=== PATIENT | female | born 1960 | race Caucasian/White ===

== ENCOUNTER 2019-08-11 09:20 | Outpatient (CLI) | payer OTHER, SELFPAY ==
--- NOTE | 2019-08-11 10:30 | NEURO_ITS ---
Patient Number: [id number] Impression: # Complains of numbness of all extremities. # Generalized neuropathy involving upper and lower extremities of motor and sensory nerves. # Needle/EMG exam revealed no significant changes. Nerve Conduction Studies Anti Sensory Summary Table Stim Site NR Peak (ms) P-T Amp (?V) Site1 Site2 Delta-P (ms) Dist (cm) Anirudh (m/s) Left Median Anti Sensory (2-3nd Digit) NO RESPONSE Wrist NR Wrist 2-3nd Digit 14.0 Wrist NR Wrist 2-3nd Digit 14.0 Right Median Anti Sensory (2-3nd Digit) NO RESPONSE Wrist NR Wrist 2-3nd Digit 14.0 Wrist 5.7 3.3 Wrist 2-3nd Digit 14.0 Left Radial Anti Sensory (Base 1st Digit) Wrist 2.0 30.4 Wrist Base 1st Digit 2.0 0.0 Right Radial Anti Sensory (Base 1st Digit) Wrist 2.4 15.7 Wrist Base 1st Digit 2.4 0.0 Left Sup Fibular Anti Sensory (Ant Lat Mall) 14 cm 4.9 4.3 14 cm Ant Lat Mall 4.9 16.0 33 Right Sup Fibular Anti Sensory (Ant Lat Mall) 14 cm 4.0 1.4 14 cm Ant Lat Mall 4.0 16.0 40 Left Sural Anti Sensory (Lat Mall) Calf 4.2 1.8 Calf Lat Mall 4.2 16.0 38 Right Sural Anti Sensory (Lat Mall) Calf 4.6 8.0 Calf Lat Mall 4.6 16.0 35 Left Ulnar Anti Sensory (5th Digit) Wrist 2.4 20.2 Wrist 5th Digit 2.4 14.0 58 Right Ulnar Anti Sensory (5th Digit) Wrist 2.2 15.7 Wrist 5th Digit 2.2 14.0 64 Motor Summary Table Stim Site NR Onset (ms) O-P Amp (mV) Site1 Site2 Delta-0 (ms) Dist (cm) Anirudh (m/s) Left Median Motor (Abd Poll Brev) Wrist 3.5 4.0 Elbow Wrist 6.0 24.0 40 Elbow 9.5 1.2 Right Median Motor (Abd Poll Brev) Wrist 4.1 1.1 Elbow Wrist 6.5 26.0 40 Elbow 10.6 1.1 Left Peroneal Motor (Vastus Med) Ankle 4.3 2.3 Popit Ankle 8.9 36.0 40 Popit 13.2 2.4 Right Peroneal Motor (Vastus Med) Ankle 4.2 2.2 Popit Ankle 8.5 33.0 39 Popit 12.7 1.4 Left Tibial Motor (Abd Phillips Brev) Ankle 4.1 0.5 Knee Ankle 11.8 40.0 34 Knee 15.9 0.3 Right Tibial Motor (Abd Phillips Brev) Ankle 4.2 1.1 Knee Ankle 10.1 39.0 39 Knee 14.3 0.6 Left Ulnar Motor (Abd Dig Minimi) Wrist 2.7 6.5 A Elbow Wrist 4.7 27.0 57 A Elbow 7.4 4.2 Right Ulnar Motor (Abd Dig Minimi) Wrist 3.0 5.0 A Elbow Wrist 5.5 26.0 47 A Elbow 8.5 2.8 F Wave Studies NR F-Lat (ms) L-R F-Lat (ms) Left Median (Mrkrs) (Abd Poll Brev) 31.58 0.18 Right Median (Mrkrs) (Abd Poll Brev) 31.75 0.18 Left Peroneal (Mrkrs) (EDB) 52.98 0.94 Right Peroneal (Mrkrs) (EDB) 53.92 0.94 Left Tibial (Mrkrs) (Abd Hallucis) 48.89 0.12 Right Tibial (Mrkrs) (Abd Hallucis) 49.01 0.12 Left Ulnar (Mrkrs) (Abd Dig Min) 30.70 1.81 Right Ulnar (Mrkrs) (Abd Dig Min) 32.51 1.81 EMG Side Muscle Nerve Root Ins Act Fibs Amp Dur Recrt Comment Right 1stDorInt Ulnar C8-T1 Nml Nml Nml Nml Nml Right Ext Indicis Radial (Post Int) C7-8 Nml Nml Nml Nml Nml Right Ext Digitorum Radial (Post Int) C7-8 Nml Nml Nml Nml Nml Right BrachioRad Radial C5-6 Nml Nml Nml Nml Nml Right PronatorTeres Median C6-7 Nml Nml Nml Nml Nml Right Abd Poll Brev Median C8-T1 Nml Nml Nml Nml Nml Right AntTibialis Dp Br Fibular L4-5 Nml Nml Nml Nml
== END 2019-08-11 09:21 | disposition home or self-care (01) ==
PROVIDERS: PCP Family Medicine; Visit Provider Family Medicine
DX: E11.42 Type 2 diabetes mellitus with diabetic polyneuropathy (principal)
CPT/HCPCS: 95886; 95913

== ENCOUNTER 2019-12-30 22:53 | Emergency (ER) | payer OTHER, SELFPAY ==
--- NOTE | ~2019-12-30 | CT_ITS ---
EXAMINATION: CT abdomen pelvis w con EXAM DATE: 12/31/2019 01:05 INDICATION: Abdominal pain with nausea and vomiting. Diabetes. TECHNIQUE: Spiral CT of the abdomen and pelvis was performed following intravenous injection of 100 m L Omnipaque 350. Axial, coronal and sagittal images were reviewed. The dose-length product (DLP) fo r this examination was 1376.42 mGy-cm. The exposure was tailored according to patient size (auto mA exposure control), and iterative reconstruction (ASIR) was used as additional dose reduction techniqu e. Comparison is made to prior examination from 11/06/2018. FINDINGS: The liver, spleen, adrenal glands and pancreas are unremarkable. Gallbladder not identifie d, patient likely has had cholecystectomy. Portal and splenic veins are patent. Kidneys enhance sym metrically. There is no hydronephrosis. Punctate nonobstructing left calyceal stone. The uterus is unremarkable. Some diffuse bladder wall thickening, could indicate chronic cystitis. Acute cystitis not excludable. There is no retroperitoneal or pelvic lymphadenopathy. There is mild to moderate scattered arteriosclerotic disease. There is moderate-sized umbilical fat-containing hernia, and bam ral smaller supraumbilical fat-containing hernias. The appendix is not positively visualized. There is no pericecal inflammatory change to suggest appe ndicitis. The stomach and small bowel are unremarkable. There is expected amount of colonic stool. No free intraperitoneal gas. The heart is normal in size. There are no pericardial or pleural e ffusions. The lung bases are unremarkable. There are no osteoblastic or osteolytic lesions identifi ed. There are sternotomy wires. IMPRESSION: 1. Mild bladder wall thickening, acute or chronic cystitis. Correlate with urinalysis. 2. Umbilical, supra umbilical fat-containing hernias. Reviewed, dictated and finalized at location A. IMPRESSION: 1. Mild bladder wall thickening, acute or chronic cystitis. Correlate with uri nalysis. 2. Umbilical, supra umbilical fat-containing hernias.
[2019-12-30 22:55] VITALS: BP 145/109; PULSE 92; RESP 20; TEMP 36.1; O2SAT 100
[2019-12-30] MEDS: SODIUM CHLORIDE 0.9% IV 1,000 ML 999 ML IV CONT (23:44)
[2019-12-30] MEDS: ONDANSETRON INJ 4 MG/2 ML VIAL IV PUSH (23:44)
[2019-12-30 23:47] LABS: Add Urine Microscopic? YES; Appearance Urine Cloudy (Clear); Bacteria Urine Trace /hpf; Bilirubin Urine Negative (Negative); Blood Urine 1+ (Negative); Color Urine Yellow (Yellow); Glucose Urine UA 3+ mg/dL (Negative); Ketones Urine Trace mg/dL (Negative); Leukocyte Esterase Ur 2+ LEU/UL (Negative); Mucus Urine Rare /lpf; Nitrate Urine Positive (Negative); Protein Urine 1+ mg/dL (Negative); Specific Grav Ur 1.021 (1.001-1.035); Squamous Epithelial Cell Urine Occasional /hpf (Few); Urobilinogen Urine Negative mg/dL (<2.0); WBC Urine 51-75 /hpf
[2019-12-30 23:56] LABS: Basophils Absolute Auto 0.1 K/mm3 (0.0-0.1); Basophils Percent Auto 0.5 % (0.2-1.2); Eosinophils Absolute Auto 0.1 K/mm3 (0-0.3); Eosinophils Percent Auto 0.6 % (0-4.4); Hematocrit 39.2 % (37.0-47.0); Hemoglobin 13.6 g/dL (12.0-15.0); Immature Granulocyte Absolute 0.09 K/mm3 (0.00-0.031); Immature Granulocyte Percent A 0.5 % (0-0.5); Lymphocytes Absolute Auto 0.74 K/mm3 (0.9-3.2); Lymphocytes Percent Auto 4.3 % (18.3-44.2); Mean Corpuscular HGB Conc 34.7 g/dl (32-36); Mean Corpuscular Volume 86.5 fl (80-100); Mean Platelet Volume 10.8 fl (7.4-10.4); Monocytes Absolute Auto 0.8 K/mm3 (0.1-0.6); Monocytes Percent Auto 4.6 % (2.6-8.5); Neutrophils Absolute Auto 15.5 K/mm3 (1.3-6.7); Neutrophils Percent Auto 89.5 % (45.5-73.1); Platelet Count Result 254 k/mm3 (150-375); Red Blood Count 4.53 M/mm3 (4.2-5.4); Red Cell Distribution Width 12.4 % (11.5-14.5); White Blood Count 17.3 K/mm3 (4.5-10.0)
[2019-12-31 00:10] LABS: Alanine Aminotransferase 24 U/L (4-35); Albumin Level 3.9 g/dL (3.5-5.1); Alkaline Phosphatase 114 U/L (38-126); Anion Gap 10 mmol/L (8-16); Aspartate Amino Transferase 31 U/L (14-36); Bilirubin,Total 0.8 mg/dL (0.2-1.3); Blood Urea Nitrogen 29 mg/dL (7-17); Calcium 9.1 mg/dL (8.4-10.2); Carbon Dioxide 25 mmol/L (22-30); Chloride 94 mmol/L (98-107); Estimated CRCL calculation 50 ml/min; Estimated Glomerular Filt Rate 46; Glucose 501 mg/dL (65-105); Lipase 115 U/L (23-300); Potassium 4.3 mmol/L (3.4-5.0); Sodium 129 mmol/L (137-145)
[2019-12-31] MEDS: SODIUM CHLORIDE 0.9% IV 1,000 ML 999 ML IV CONT (00:54)
[2019-12-31 02:03] LABS: Glucose Point of Care 430 (65-105)
[2019-12-31] MEDS: INSULIN HUMAN REGULAR (*BKC) 100 UNITS/ML 10 UNITS IV PUSH (02:28)
--- NOTE | 2019-12-31 03:02 | ED.NAVMDI ---
HPI - Nausea/Vomiting/Diarrhea General Chief complaint: Nausea/Vomiting/Diarrhea Stated complaint: n/v Time Seen by Provider: 12/30/19 23:06 History of Present Illness HPI Narrative: Patient is a 5-year-old female who presents ER with sudden onset nausea and vomiting. Began this evening. Associated diffuse abdominal discomfort. Reports that she has had no fevers or chills or sweats. She has had mild dysuria for the last couple days is also been dark. No known sick contacts. She is without diarrhea. No alleviating factors. Patient reports she has not been checking her blood sugars at home and has not been taking her insulin for the last day or so because she has not been eating much. Related Data Allergies Allergy/AdvReac Type Severity Reaction Status Date / Time No Known Allergies Allergy Unverified 12/30/18 15:39 Review of Systems Review of Systems: All systems reviewed & are unremarkable except as noted in HPI and below Constitutional: Constitutional: Denies chills, Denies fever(s) and Denies weakness Respiratory: Respiratory: Denies cough and Denies dyspnea Gastrointestinal: Gastrointestinal: Reports abdominal pain, Denies diarrhea, Reports nausea and Reports vomiting Genitourinary: Genitourinary: Denies nocturia, Reports dysuria and Denies flank pain PMFSH Past Medical History Medical History (Updated 12/31/19 @ 04:09 by Ricky Peters MD) Coronary artery disease Depression Diabetes mellitus Hypercholesterolemia Hypertension Surgical History Surgical History (Updated 12/31/19 @ 04:07 by Ricky Peters MD) H/O rotator cuff surgery History of appendectomy History of History of cholecystectomy Hx of CABG Social History Social History (Updated 12/31/19 @ 03:04 by Ricky Peters MD) Smoking status: Former smoker Gender identity (if verbalized by the patient): Female Exam Narrative: Exam Narrative: GENERAL: Well-appearing, well-nourished, and in no acute distress. HEAD: Normocephalic, atraumatic. ENT: Mucous membranes moist. CHEST: Clear to auscultation. No respiratory distress. HEART: Regular rate and rhythm. Normal peripheral pulses. ABDOMEN: Soft, nontender, nondistended. EXTREMITIES: Normal range of motion. No edema. SKIN: Warm, dry, no rash. NEURO: Alert and oriented x3 Course Course Emergency Course: Feels improved with zofran and IVF. Hydrated and given IV insulin. Received ceftriaxone as well. Comfortable with D/c home. Encouraged compliance with insulin. Vital Signs Vital signs: Vital Signs Temperature 97 F L 12/30/19 22:55 Pulse Rate 92 12/30/19 22:55 Respiratory Rate 20 12/30/19 22:55 Blood Pressure 145/109 H 12/30/19 22:55 Pulse Oximetry 100 12/30/19 22:55 Temperature 97 F L 12/30/19 22:55 Pulse Rate 98 12/31/19 03:07 Respiratory Rate 18 12/31/19 03:07 Blood Pressure 141/96 H 12/31/19 03:07 Pulse Oximetry 99 12/31/19 03:07 MDM - Nausea/Vomiting/Diarrhea Lab Data Result diagrams: 12/30/19 23:47 12/30/19 23:47 Labs: Lab Results 12/30/19 12/30/19 12/30/19 Range/Units 23:30 23:47 23:47 WBC 17.3 H (4.5-10.0) K/mm3 RBC 4.53 (4.2-5.4) M/mm3 Hgb 13.6 (12.0-15.0) g/dL Hct 39.2 (37.0-47.0) % MCV 86.5 (80-100) fl MCH 30.0 (26-34) pg MCHC 34.7 (32-36) g/dl RDW 12.4 (11.5-14.5) % Plt Count 254 (150-375) k/mm3 MPV 10.8 H (7.4-10.4) fl Immature Gran % (Auto) 0.5 (0-0.5) % Neut % (Auto) 89.5 H (45.5-73.1) % Lymph % (Auto) 4.3 L (18.3-44.2) % [place] % (Auto) 4.6 (2.6-8.5) % Eos % (Auto) 0.6 (0-4.4) % Baso % (Auto) 0.5 (0.2-1.2) % Lymph # (Auto) 0.74 L (0.9-3.2) K/mm3 [place] # (Auto) 0.8 H (0.1-0.6) K/mm3 Eos # (Auto) 0.1 (0-0.3) K/mm3 Baso # (Auto) 0.1 (0.0-0.1) K/mm3 Abs Immat Gran (auto) 0.09 H (0.00-0.031) K/mm3 Absolute Neuts (auto) 15.5 H (1.3-6.7) K/mm3 Absolute Nucleated RBC
[2019-12-31 03:07] VITALS: BP 141/96; PULSE 98; RESP 18; O2SAT 99
[2019-12-31 04:04] LABS: Glucose Point of Care 473 (65-105)
[2019-12-31 04:19] VITALS: BP 148/96; PULSE 84; RESP 18; TEMP 36.4; O2SAT 97
== END 2019-12-31 04:20 | disposition home or self-care (01) ==
PROVIDERS: Emergency Provider Emergency Medicine; PCP Family Medicine
DX: N39.0 Urinary tract infection, site not specified (principal); E11.65 Type 2 diabetes mellitus with hyperglycemia; I25.10 Atherosclerotic heart disease of native coronary artery without angina pectoris; E78.00 Pure hypercholesterolemia, unspecified; I10 Essential (primary) hypertension; Z95.1 Presence of aortocoronary bypass graft; Z87.891 Personal history of nicotine dependence; Z79.4 Long term (current) use of insulin; K42.9 Umbilical hernia without obstruction or gangrene
CPT/HCPCS: 36415; 74177; 80053; 81001; 83690; 85025; 87077; 87086; 87088; 87186; 96361; 96365; 96374; 96375; 99284; J0696; J1815; J2405; J7030; Q9967

== ENCOUNTER 2020-03-13 13:43 | Emergency (ER) | payer OTHER, SELFPAY ==
[2020-03-13 13:52] VITALS: BP 125/56; PULSE 89; RESP 18; TEMP 36.5; O2SAT 98
[2020-03-13] MEDS: LORazepam (*CRX) 1 MG TABLET PO (15:26)
[2020-03-13] MEDS: HYDROcodone/acetaminophen (*CRX) 5-325 MG TABLET 1 TAB PO (15:26)
--- NOTE | 2020-03-13 16:23 | ED.GENADULT ---
HPI - General Adult General Chief complaint: Skin/Abscess/Foreign Body Stated complaint: Abscess to Labia Time Seen by Provider: 03/13/20 14:28 Source: patient Mode of arrival: ambulatory Limitations: no limitations History of Present Illness HPI narrative: Patient is a 59-year-old female who presents with several days of tender red swollen left labia with history of labial abscess patient denies fever chills nausea vomiting was started on antibiotics by primary care which she picked up today and has not begun. Related Data Home Medications Medication Instructions Recorded Confirmed albuterol sulfate INHALATION 03/13/20 albuterol sulfate [ProAir HFA] INHALATION 03/13/20 albuterol sulfate [ProAir HFA] INHALATION 03/13/20 atorvastatin 03/13/20 ergocalciferol (vitamin D2) 03/13/20 03/13/20 [Vitamin D2] exenatide [Byetta] mcg SUBCUT 03/13/20 gabapentin 03/13/20 insulin glargine [Basaglar KwikPen SUBCUT 03/13/20 U-100 Insulin] insulin glargine [Lantus Solostar SUBCUT 03/13/20 U-100 Insulin] insulin lispro [Admelog U-100 03/13/20 Insulin lispro] metformin mg 03/13/20 metoprolol succinate PO 03/13/20 rosuvastatin mg 03/13/20 Allergies Allergy/AdvReac Type Severity Reaction Status Date / Time No Known Allergies Allergy Verified 03/13/20 13:55 Review of Systems Review of Systems: All systems reviewed & are unremarkable except as noted in HPI and below PMFSH Past Medical History Medical History Coronary artery disease Depression Diabetes mellitus Hypercholesterolemia Hypertension Surgical History Surgical History H/O rotator cuff surgery History of appendectomy History of History of cholecystectomy Hx of CABG Social History Social History Smoking status: Former smoker Gender identity (if verbalized by the patient): Female Exam Narrative: Exam Narrative: GENERAL: Well-appearing, well-nourished, and in no acute distress. HEAD: Normocephalic, atraumatic. EYES: PERRLA and EOMI. ENT: Nares clear, no rhinorrhea or epistaxis. Mucous membranes moist CHEST: Clear to auscultation. No respiratory distress. No wheezes rales or rhonchi HEART: Regular rate and rhythm. No murmur heard. EXTREMITIES: Normal range of motion. No edema. SKIN: Warm, dry, no rash. Patient with red tender swollen left labia NEURO: No focal deficits. Alert and oriented x3. PSYCH: Normal mood and affect. Course Course Emergency Course: Patient in the room aware of case findings treatment plan diagnosis agreeing to follow-up had I&D will follow with gynecology and primary care and was given reasons to return Vital Signs Vital signs: Vital Signs Temperature 97.7 F 03/13/20 13:52 Pulse Rate 89 03/13/20 13:52 Respiratory Rate 18 03/13/20 13:52 Blood Pressure 125/56 L 03/13/20 13:52 Pulse Oximetry 98 03/13/20 13:52 Temperature 97.7 F 03/13/20 13:52 Pulse Rate 82 03/13/20 16:35 Respiratory Rate 18 03/13/20 16:35 Blood Pressure 151/68 H 03/13/20 16:35 Pulse Oximetry 96 03/13/20 16:35 Procedures Abscess I/D other: Date of Incision: 03/13/20 Time of Incision: 16:47 Side (if applicable): left Local Anesthetic: lidocaine 1% Technique: incised with #11 blade Amount of fluid expressed (mL): 20 Irrigation: Yes Packing used?: iodoform I&D Results: Pus and Blood Complications: pain Medical Decision Making MDM Narrative Medical decision making narrative: Patient with labial abscess that was I&D it in the emergency department packed with iodoform packing will follow with gynecology and primary care will be placed on antibiotics is afebrile nontoxic-appearing no distress at this time felt appropriate for outpatient reevaluation Vital Sign
[2020-03-13 16:35] VITALS: BP 151/68; PULSE 82; RESP 18; O2SAT 96
== END 2020-03-13 17:00 | disposition home or self-care (01) ==
PROVIDERS: Emergency Provider Emergency Medicine; PCP Family Medicine
DX: N76.4 Abscess of vulva (principal); I25.10 Atherosclerotic heart disease of native coronary artery without angina pectoris; E11.9 Type 2 diabetes mellitus without complications; E78.00 Pure hypercholesterolemia, unspecified; I10 Essential (primary) hypertension; Z79.4 Long term (current) use of insulin; Z95.1 Presence of aortocoronary bypass graft
CPT/HCPCS: 56405; 87070; 87075; 87076; 87147; 87185; 87205; 99283; A9270

== ENCOUNTER 2020-08-08 15:18 | Outpatient (CLI) | payer OTHER, SELFPAY ==
--- NOTE | ~2020-08-08 | DEXA_ITS ---
Bone Density Report Name: Lynn Steven Age: 59 Sex: Female Ethnicity: White Date of : 1960 Indication: postmenopausal; Referring Provider: Marlene Fine Study: Bone densitometry was performed. Exam Date: August 08, 2020 Accession number: [id number] Bone Density: Region BMD T-score Z-score Classification AP Spine (L1-L4) 1.248 1.8 3.3 Normal Femoral Neck (Left) 0.748 -0.9 0.4 Normal Total Hip (Left) 1.010 0.6 1.5 Normal Total Hip Bilateral Avg 1.007 0.6 1.5 Normal Femoral Neck (Right) 0.795 -0.5 0.8 Normal Total Hip (Right) 1.002 0.5 1.5 Normal World Health Organization criteria for BMD impression classify patients as: Normal (T-score at or above -1.0), Osteopenia (T-score between -1.0 and -2.5), or Osteoporosis (T-score at or below -2.5). 10-year Fracture Risk: FRAX not reported because: All T-scores for Spine Total, Hip Total, Femoral Neck at or above -1.0 Clinical Information Provided by Patient: Patient maximum height was 65 Menopause Age: 44 No regular weight bearing exercise Drinks caffeinated beverages Onset of menses at age 10 Number of children 2 Impression: The patient has normal bone mass. Discussion: BONE DENSITY IS ABOVE THE MINIMUM DESIRABLE LEVEL AT ALL SKELETAL SITES TESTED. This patient?s bone mineral density is above the minimum desirable level (T-score -1.0 or better) at all sites measured. The patient should follow a healthful lifestyle (good nutrition with adequate calcium and vitamin D, and appropriate weight-bearing exercise). Follow-Up: Consider repeating this study in 5 years or sooner if there is some new clinical indication. Reported by: KYAW on 08/08/2020 4:09:00 PM. Reviewed, dictated and finalized at location [facility]
--- NOTE | ~2020-08-08 | MM_ITS ---
EXAMINATION: MM screening nicol BI w christoph HISTORY: Screening mammogram TECHNIQUE: Craniocaudal and mediolateral oblique 3-D tomosynthesis images were obtained and synthetic 2-D images were generated. CAD analysis was submitted and interpreted. COMPARISON: No prior mammogram is available for comparison at this institution. BREAST PARENCHYMAL COMPOSITION: There are scattered areas of fibroglandular density. FINDINGS: There is no evidence of suspicious mass, calcification, or architectural distortion to sugg est malignancy in either breast. There has been no suspicious interval change. IMPRESSION: 1. No mammographic evidence of malignancy. 2. Recommend routine screening mammography in one year. BI-RADS Category 1: Negative Reviewed, dictated and finalized at location A.
== END 2020-08-08 15:19 | disposition home or self-care (01) ==
PROVIDERS: PCP Internal Medicine; Visit Provider Nurse Practitioner
DX: Z12.31 Encounter for screening mammogram for malignant neoplasm of breast (principal); Z78.0 Asymptomatic menopausal state
CPT/HCPCS: 77063; 77067; 77080

== ENCOUNTER 2021-04-27 18:45 | Emergency (ER) | payer OTHER, SELFPAY ==
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
[2021-04-27 21:22] VITALS: BP 112/60; PULSE 70; RESP 18; TEMP 36.6; O2SAT 97
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
--- NOTE | 2021-04-27 21:58 | PC.NURSE ---
Pt to CT via stretcher at this time. Pt alert and upright on stretcher during transport out of ED.
[2021-04-27 22:27] VITALS: PULSE 73; RESP 18; O2SAT 98
[2021-04-27] MEDS: LACTATED RINGERS 1,000 ML 999 ML IV CONT (22:35)
[2021-04-27] MEDS: PROMETHAZINE HCL 25 MG/ML AMPUL 12.5 MG IV PUSH (22:36)
[2021-04-27] MEDS: HYDROmorphone HCL INJ (*CRX) 1 MG/ML SYR 0.5 MG IV PUSH (22:36)
[2021-04-27 23:13] VITALS: BP 151/73; PULSE 74; RESP 16; O2SAT 96
[2021-04-27 23:34] VITALS: BP 155/82; PULSE 76; RESP 16; O2SAT 97
== END 2021-04-27 23:37 | disposition home or self-care (01) ==
PROVIDERS: Emergency Provider Emergency Medicine; PCP Internal Medicine
DX: S16.1XXA Strain of muscle, fascia and tendon at neck level, initial encounter (principal); S20.219A Contusion of unspecified front wall of thorax, initial encounter; V89.2XXD Person injured in unspecified motor-vehicle accident, traffic, subsequent encounter
CPT/HCPCS: 71260; 72125; 74177; 96361; 96374; 96375; 99284; J1170; J2550; J7120; Q9967

== ENCOUNTER 2023-08-01 12:34 | Outpatient (CLI) | payer OTHER, SELFPAY ==
[2023-08-01 13:23] LABS: Influenza A QL RT-PCR Negative (Negative); Influenza B QL RT-PCR Negative (Negative); RSV RNA, RT-PCR Negative (Negative); SARS-CoV-2 RNA PCR Negative (Negative)
[2023-08-01 13:26] LABS: Strep Group A RT-PCR NOT DETECTED (Negative)
== END 2023-08-01 12:35 | disposition home or self-care (01) ==
LOC: ANHLAB 12:36
PROVIDERS: PCP Nurse Practitioner Family; Visit Provider Nurse Practitioner Family
DX: J02.9 Acute pharyngitis, unspecified (principal); Z20.822 Contact with and (suspected) exposure to COVID-19
CPT/HCPCS: 87637; 87651

== ENCOUNTER 2023-08-05 15:01 | Outpatient (RCR) | payer OTHER, SELFPAY ==
[2023-08-05 15:05] VITALS: BMI 39.2
[2023-08-05 15:06] VITALS: BMI 39.2
== END 2023-10-21 14:15 | disposition home or self-care (01) ==
LOC: ANHDMC 15:01
PROVIDERS: PCP Nurse Practitioner Family; Visit Provider Nurse Practitioner Family
DX: E11.65 Type 2 diabetes mellitus with hyperglycemia (principal); Z79.4 Long term (current) use of insulin; Z71.3 Dietary counseling and surveillance
CPT/HCPCS: 97802

== ENCOUNTER 2025-03-29 15:04 | Outpatient (CLI) | payer OTHER, SELFPAY ==
--- OUTSIDE RECORDS SUMMARY | 2024-01-14 09:30 | XMS_ITS ---
Author Organization [facility] Address [address] [place], [place] [id number] Care Team Providers Care Environmental Construction Engineer Name Role Phone ISACC DOBSON Unavailable [phone] Donnell Gabriel Unavailable Unavailable Allergies Allergen (clinical drug ingredient) Drug/Non Drug Allergy documented on EMR Reaction Allergy Type Onset Date Status vancomycin Vancomycin Unknown Drug Allergy Activ e REASON FOR VISIT *Fungal nail check, *Foot Pain, *General care, Patient presents to the office for at risk diabetic foot care Medications Medication SIG (Take, Route, Frequency, Duration) Notes Start Date End Date Status Ciclopirox 8 % Solution 1 application Ex ternally Once a day; Duration: 90 days 09/25/2023 09/19/2024 Active Encounters Encounter Location Date Provider Diagnosis [facility] [address] [id number] 01/14/2024 ISACC DOBSON Onychomycosis B35.1 ; Non-pressure chronic ulcer of right heel and midfoot limited to breakdown of skin L97.411 ; Pain in right toe(s) M79.674 ; Pain in left toe(s) M79.675 ; Intermittent claudication of both lower extremities due to atherosclerosis I70.213 and Difficulty in walking involving ankle and foot joint R26.2 Assessments Encounter Date Diagnosis (ICD Code) Assessment Notes Treatment Notes Treatment Clinical Notes Section Notes 01/14/2024 Onychomycosis (ICD-10 - B35.1) 1. FUNGAL TOENAILS: Discussed various treatment options for fungal toenails including debridement, topical antifungals, oral antifungals, toenail avulsion, or toenail matrixectomy. 2. Patient was instructed on the importance of daily visual inspection of both feet. Patient should report to the office if they see any unusual redness, swelling, open sores, ulcerations or signs of infection. Patient should wear protective shoes around the house 3. Advised patient on appropriate shoe gear for protection, healing and overall foot health 4. Advised patient to continue using Ciclopirox for fungal toenails 01/14/2024 Non-pressure chronic ulcer of right heel and midfoot limited to breakdown of skin (ICD-10 - L97.411) 01/14/2024 Pain in right toe(s) (ICD-10 - M79.674) 01/14/2024 Pain in left toe(s) (ICD-10 - M79.675) 01/14/2024 Intermittent claudication of both lower extremities due to atherosclerosis (ICD-10 - I70.213) 01/14/2024 Difficulty in walking involving ankle and foot joint (ICD-10 - R26.2) 01/14/2024 Other 1. DIABETIC FOOT CARE: Both feet were examined today. Diabetic preventive care provided as documented. Diabetic foot care education discussed today to including: daily foot inspections, appropriate protective shoe gear, and strict glycemic control. Patient to return to the office routinely for preventive diabetic foot care or sooner if patient notices any acute changes. 2. Ulcer Debridement: Using a 15 blade, the ulcer was sharply debrided down to bleeding tissue. The nonviable tissue was sharply debrided down to the layer of subcutaneous tissue. A dry sterile dressing was applied. 3. Ulcer Plan of Care: The treatment goals are closure of the ulceration within an appropriate time frame. This will require regular debridements every 2 weeks until skin closure has been met. The patient will come in sooner than 2 weeks if the wound develops any signs of infection or deteriorates. The plan of care will be reviewed every month. If there is no change in the size of the wound, we will re evaluate debridement schedule, topical medications being used, as well as modify techniques for offloading the wound. ZAMORA GRADING SYSTEM Grade 0: Pre-ulcerative Lesion, healed ulcers, presence of bone deformity Grade 1: Superficial Ulcer without subcutaneous tissue involvement Grade 2: Penetration through the subcutaneous tissue (may expose bone, tendon, ligament or joint capsule) Grade 3: Osteitis, abscess or osteomyelitis Grade 4: Gangrene of the foot. Based on clinical findings, the patient has the following grade ulceration: 1 4. Bandage was applied to the wound after debridement consisting of betadine ointment to the wound bed, cover with gauze and tape/band-aid. Change daily or as needed due to drainage Plan Of Treatment Treatment Notes Assessment Notes Onychomycosis 1. FUNGAL TOENAILS: Discussed various treatment options for fungal toenails including debridement, topical antifungals, oral antifungals, toenail avulsion, or toenail matrixectomy. 2. Patient was instructed on the importance of daily visual inspection of both feet. Patient should report to the office if they see any unusual redness, swelling, open sores, ulcerations or signs of infection. Patient should wear protective shoes around the house 3. Advised patient on appropriate shoe gear for protection, healing and overall foot health 4. Advised patient to continue using Ciclopirox for fungal toenails Other 1. DIABETIC FOOT CARE: Both feet were examined today. Diabetic preventive care provided as documented. Diabetic foot care education discussed today to including: daily foot inspections, appropriate protective shoe gear, and strict glycemic control. Patient to return to the office routinely for preventive diabetic foot care or sooner if patient notices any acute changes. 2. Ulcer Debridement: Using a 15 blade, the ulcer was sharply debrided down to bleeding tissue. The nonviable tissue was sharply debrided down to the layer of subcutaneous tissue. A dry sterile dressing was applied. 3. Ulcer Plan of Care: The treatment goals are closure of the ulceration within an appropriate time frame. This will require regular debridements every 2 weeks until skin closure has been met. The patient will come in sooner than 2 weeks if the wound develops any signs of infection or deteriorates. The plan of care will be reviewed every month. If there is no change in the size of the wound, we will re evaluate debridement schedule, topical medications being used, as well as modify techniques for offloading the wound. ZAMORA [employer] SYSTEM Grade 0: Pre-ulcerative Lesion, healed ulcers, presence of bone deformity Grade 1: Superficial Ulcer without subcutaneous tissue involvement Grade 2: Penetration through the subcutaneous tissue (may expose bone, tendon, ligament or joint capsule) Grade 3: Osteitis, abscess or osteomyelitis Grade 4: Gangrene of the foot. Based on clinical findings, the patient has the following grade ulceration: 1 4. Bandage was applied to the wound after debridement consisting of betadine ointment to the wound bed, cover with gauze and tape/band-aid. Change daily or as needed due to drainage Next Appt Details Follow Up: 2 Weeks, Reason: wound check History and Physical Notes * HPI (History of Present Illness) Category Sub-Category Detail Notes Category Not es HPI Follow Up Visit Patient presents for follow up visit for fungal nail check. Patient states that the austrian has helped slightly. Patient states that her left great toenail has some dark discoloration to it. Patient also complains of some tenderness to a spot on her right foot where she had some glass removed in the ER. , MA: [facility] Examination Category Sub-Category Detail Notes Category Not es Dermatologic Skin findings: Skin is thin, at rophic and lacking pedal hair. Nail pathology: Right hallux nail is noted to be elongated, thick, discolored, and dystrophic with subungual debris. It is not painful to palpation Ulcer: There is an ulcerati on from previous glass entry wound present on the plantar lateral side of the right heel. , The ulceration measures 0.4cm in diameter, , no signs of infection, The wound base is, granular, The borders are, hyperkeratotic, The drainage is, serous, The wound has no foul odor., The wound, does not undermine, has no exposed bones or tendons Neurologic Tinel's sign: negative Vibratory: normal Henryetta-Weinstin 5.07 monofilament dimini shed protective sensation to the level of the digits via 5.07 g swmf bilateral Vascular Dorsalis pedis pulse: 0/4, bilateral Edema: mild, non-pitting, b ilateral Capillary refill: greater than 3 secon ds Posterior tibial pulse: 0/4, bilaterally Musculoskeletal Muscle Strength Muscle strength is 5/5 in regards to dorsiflexion, plantarflexion, inversion, and eversion in bilateral lower extremities. Constitutional Constitutional The patient is a wake, alert, well developed, well groomed and well nourished. General Surgery Preoperative Assessment Was surg ical risk assessment performed prior to the surgery?: Yes Was communication of risk assessment provided to patient and/or family?: Yes Progress Notes * Kerri WHITTOB:1960 (64 yo F)Acc No.[id number]:01/14/2024 Patient: Lynn Lema Provider: Will Dobson DPM :1960 A ge:63 Y S ex:Female Date:01/14/2024 Address:[address] [place], [place] [id number] Subjective: * Chief Complaints: * * Fungal nail check*Foot Pain*General carePatient presents to the office for at risk diabetic foot care * HPI: H PI: Follow Up Visit P atient presents for follow up visit for fungal nail check. Patient states that the austrian has helped slightly. Patient states that her left great toenail has some dark discoloration to it. Patient also complains of some tenderness to a spot on her right foot where she had some glass removed in the ER. , MA: [facility]. * ROS: G eneral / Constitutional: Patient denies f atigue, fever, pain, weight loss. ? C ardiovascular: Patient denies c hest pain, dizziness, palpitations. ? M usculoskeletal: Patient denies a rthritis, joint stiffness, painful joints, childhood foot problems. P atient complains of g ait (walking problems), muscle cramps.? P eripheral Vascular: Patient denies u lceration of feet, blood clots in legs.?Patient complains of d ecreased sensation in extremities, pain / cramping in legs after exertion, cold extremities. P odiatric: Patient denies b urning of the feet, difficulty walking, fever. S kin: Patient denies d ry skin, discoloration, rash on feet, ulcerations. P atient complains of n ail changes, dry skin. N eurologic: Patient denies d izziness, balance difficulty, seizures.?Patient complains of n umbness, burning/ tingling, gait abnormality. * Medications: T akingCiclopirox 8 % Solution 1 application Externally Once a day , stop date 09/19/2024Medication List reviewed and reconciled with the patientTaking Ciclopirox 8 % Solution 1 application Externally Once a day , stop date 05/18/2025Medication List reviewed and reconciled with the patient * Allergies: V ancomycinyesAllergies Verified. Objective: * Examination: D ermatologic: Skin findings: S kin is thin, atrophic and lacking pedal hair. Nail pathology: R ight hallux nail is noted to be elongated, thick, discolored, and dystrophic with subungual debris. It is not painful to palpation. Ulcer: T here is an ulceration from previous glass entry wound present on the plantar lateral side of the right heel. , The ulceration measures 0.4cm in diameter, , no signs of infection, The wound base is, granular, The borders are, hyperkeratotic, The drainage is, serous, The wound has no foul odor., The wound, does not undermine, has no exposed bones or tendons. M usculoskeletal: Muscle Strength M uscle strength is 5/5 in regards to dorsiflexion, plantarflexion, inversion, and eversion in bilateral lower extremities.. ? V ascular: Dorsalis pedis pulse: 0 /4, bilateral. Posterior tibial pulse: 0 /4, bilaterally. Capillary refill: g reater than 3 seconds. Edema: m ild, non-pitting, bilateral. ? N eurologic: Tinel's sign: n egative. Vibratory: n ormal. Henryetta-Weinstin 5.07 monofilament d iminished protective sensation to the level of the digits via 5.07 g swmf bilateral. C onstitutional: Constitutional T he patient is awake, alert, well developed, well groomed and well nourished.. G eneral Surgery: Preoperative Assessment W as surgical risk assessment performed prior to the surgery? Y es, W as communication of risk assessment provided to patient and/or family? Y es. Assessment: * Assessment: 1. N on-pressure chronic ulcer of right heel and midfoot limited to breakdown of skin - L97.411 (Primary) 2 . O nychomycosis - B35.1 3 . P ain in right toe(s) - M79.674 4 . P ain in left toe(s) - M79.675 5 . I ntermittent claudication of both lower extremities due to atherosclerosis - I70.213 6 .?Difficulty in walking involving ankle and foot joint - R26.2 Plan: * Treatment: 2. O thers Notes: 1. DIABETIC FOOT CARE: Both feet were examined today. Diabetic preventive care provided as documented. Diabetic foot care education discussed today to including: daily foot inspections, appropriate protective shoe gear, and strict glycemic control. Patient to return to the office routinely for preventive diabetic foot care or sooner if patient notices any acute changes. 2. Ulcer Debridement: Using a 15 blade, the ulcer was sharply debrided down to bleeding tissue. The nonviable tissue was sharply debrided down to the layer of subcutaneous tissue. A dry sterile dressing was applied. 3. Ulcer Plan of Care: The treatment goals are closure of the ulceration within an appropriate time frame. This will require regular debridements every 2 weeks until skin closure has been met. The patient will come in sooner than 2 weeks if the wound develops any signs of infection or deteriorates. The plan of care will be reviewed every month. If there is no change in the size of the wound, we will re evaluate debridement schedule, topical medications being used, as well as modify techniques for offloading the wound. ZAMORA GRADING SYSTEM Grade 0: Pre-ulcerative Lesion, healed ulcers, presence of bone deformity Grade 1: Superficial Ulcer without subcutaneous tissue involvement Grade 2: Penetration through the subcutaneous tissue (may expose bone, tendon, ligament or joint capsule) Grade 3: Osteitis, abscess or osteomyelitis Grade 4: Gangrene of the foot. Based on clinical findings, the patient has the following grade ulceration: 1 4. Bandage was applied to the wound after debridement consisting of betadine ointment to the wound bed, cover with gauze and tape/band-aid. Change daily or as needed due to drainage ? * Procedure Codes: 1 1042 DEBRIDE SKIN/TISSUE * Follow Up: 2 Weeks (Reason: wound check) Billing Information: * Procedure Codes: 53400 DEBRIDE SKIN/TISSUE. * Electronic signature of MARIA D TILLMAN DPM on 03/29/2025 at 04:53 PM BREAD PAN GREASER Sign off status: Pending * Provider: Will Dobson DPM Date: 0 01/14/2024 Generated for Ivy massey/Pavel/Charlineitting on: 05/29/2024 04:53 PM BREAD PAN GREASER
--- OUTSIDE RECORDS SUMMARY | 2024-01-28 08:40 | XMS_ITS ---
Author Organization [facility] Address [address] [facility] [address] [place], [place] [id number] Care Team Providers Care Greens Cutter Name Role Phone ISACC DOBSON [phone] Donnell Gabriel Unavailable Unavailable REASON FOR VISIT 2 WEEK ULCER CHECK Medications Medication SIG (Take, Route, Frequency, Duration) Notes Start Date End Date Status Doxycycline Hyclate 100 MG Capsule 1 capsule Orally Once a day; Duration: 7 days 01/28/2024 02/04/2024 Active traMADol HCl 50 MG Tablet 1 tablet as ne eded Orally every 8 hours; Duration: 10 days 01/28/2024 02/07/2024 Active Ciclopirox 8 % Solution 1 application Ex ternally Once a day; Duration: 90 days 09/25/2023 09/19/2024 Active Encounters Encounter Location Date Provider Diagnosis [facility] [address] [id number] 01/28/2024 ISACC DOBSON Onychomycosis B35.1 ; Non-pressure chronic [...] Treatment Notes Treatment Clinical Notes Section Notes 01/28/2024 Onychomycosis (ICD-10 - B35.1) 1. FUNGAL TOENAILS: [...] to continue using Ciclopirox for fungal toenails 01/28/2024 Non-pressure chronic ulcer of right heel and midfoot limited to breakdown of skin (ICD-10 - L97.411) 01/28/2024 Pain in right toe(s) (ICD-10 - M79.674) 01/28/2024 Pain in left toe(s) (ICD-10 - M79.675) 01/28/2024 Intermittent claudication of both lower extremities due to atherosclerosis (ICD-10 - I70.213) 01/28/2024 Difficulty in walking involving ankle and foot joint (ICD-10 - R26.2) 01/28/2024 Other 1. DIABETIC FOOT CARE: Both feet [...] daily or as needed due to drainage 5. Infection Protocol: Patient instructed to observe foot for signs and symptoms of infection, including but not limited to: increased redness and warmth to the area, increased drainage from the area, foul odor, and/or presence of fever/chills/shine sea/vomiting. If patient experiences any of the above they are to call the office immediately, if someone is not present in the office then proceed to the nearest ER. 6. Culture: Culture and Sensitivity obtained from wound following aseptic technique. 7. The patient was given an antibiotic prescription for Doxycycline 100mg, take until finished to prevent resistance. 8. Rx for Ultram 50mg. No refills Plan Of Treatment Medication Medication Name Sig Start Date Stop Date Notes Doxycycline Hyclate 100 MG Capsule 1 capsule Orally Once a day; Duration: 7 days 01/28/2024 02/04/2024 traMADol HCl 50 MG Tablet 1 tablet as ne eded Orally every 8 hours; Duration: 10 days 01/28/2024 02/07/2024 Treatment Notes Assessment Notes Onychomycosis 1. FUNGAL [...] daily or as needed due to drainage 5. Infection Protocol: Patient instructed to observe foot for signs and symptoms of infection, including but not limited to: increased redness and warmth to the area, increased drainage from the area, foul odor, and/or presence of fever/chills/nausea/vomiting. If patient experiences any of the above they are to call the office immediately, if someone is not present in the office then proceed to the nearest ER. 6. Culture: Culture and Sensitivity obtained from wound following aseptic technique. 7. The patient was given an antibiotic prescription for Doxycycline 100mg, take until finished to prevent resistance. 8. Rx for Ultram 50mg. No refills Next Appt Details Follow Up: 2 Weeks, Reason: wound check History and Physical Notes * HPI (History of Present Illness) Category Sub-Category Detail Notes Category Not es HPI Follow Up Visit Patient presents for follow up visit for right foot ulcer wound check. , Patient states their problem is, worse. The pain is so bad that she can't even sleep at night or put that part of the foot down against anything. , MA: beg Examination Category Sub-Category Detail Notes Category Not [...] the right heel. , The ulceration measures 0.6cm in diameter, periwound erythema, , The wound base is, granular, The borders are, hyperkeratotic, The drainage is, serous, The wound has no foul odor., The wound, does not undermine, has no exposed bones or tendons Neurologic Tinel's sign: negative Vibratory: normal [place]-Weinstin 5.07 monofilament dimini shed protective sensation to [...] Notes * Kerri WHITTOB:1960 (64 yo F)Acc No.[id number]:01/28/2024 Patient: Lynn Lema Provider: Will Dobson DPM :1960 A ge:63 Y S ex:Female Date:01/28/2024 Address:[address] [facility] [id number] Subjective: * Chief Complaints: * 2 WEEK ULCER CHECK * HPI: H PI: Follow Up Visit P atient presents for follow up visit for right foot ulcer wound check. , Patient states their problem is, worse. The pain is so bad that she can't even sleep at night or put that part of the foot down against anything. , MA: beg. * ROS: G eneral / Constitutional: Patient [...] 09/19/2024Medication List reviewed and reconciled with the patient Objective: * Examination: D ermatologic: Skin findings: [...] the right heel. , The ulceration measures 0.6cm in diameter, periwound erythema, , The wound base is, granular, The borders [...] Tinel's sign: n egative. Vibratory: n ormal. Selma-Weinstin 5.07 monofilament d iminished protective sensation to [...] R26.2 Plan: * Treatment: 2. O thers Start Doxycycline Hyclate Capsule, 100 MG, 1 capsule, Orally, Once a day, 7 days, 7 Capsule, Refills 0; S tart traMADol HCl Tablet, 50 MG, 1 tablet as needed, Orally, every 8 hours, 10 days, 30 Tablet, Refills 0. Notes: 1. DIABETIC FOOT CARE: Both feet [...] daily or as needed due to drainage 5. Infection Protocol: Patient instructed to observe foot for signs and symptoms of infection, including but not limited to: increased redness and warmth to the area, increased drainage from the area, foul odor, and/or presence of fever/chills/nausea/vomiting. If patient experiences any of the above they are to call the office immediately, if someone is not present in the office then proceed to the nearest ER. 6. Culture: Culture and Sensitivity obtained from wound following aseptic technique. 7. The patient was given an antibiotic prescription for Doxycycline 100mg, take until finished to prevent resistance. 8. Rx for Ultram 50mg. N o refills * Follow Up: 2 Weeks (Reason: wound check) Billing Information: * Visit Code: 50197 Office Visit, Est Pt., Level 3. * Procedure Codes: * Electronic signature of MARIA D TILLMAN DPM on 03/29/2025 at 04:52 PM LOCKSTITCH WAISTBAND SETTER Sign off status: Pending * Provider: Will Dobson DPM Date: 0 01/28/2024 Generated for Ivy massey/Pavel/Kyra on: 05/29/2024 04:52 PM LOCKSTITCH WAISTBAND SETTER
--- NOTE | ~2025-03-29 | DEXA_ITS ---
Bone Density Report Name: PETER MEADOWS Age: 64 Sex: Female Ethnicity: White Date of : 1960 Indication: postmenopausal; screening for osteoporosis; parental hip fracture; prior fracture; Referring Provider: ANGEILCA ARGUELLO Study: Bone densitometry was performed. Exam Date: March 29, 2025 Accession number: [id number] Bone Density: Region BMD T-score Z-score Classification AP Spine(L1-L4) 1.258 1.9 3.7 Normal Femoral Neck (Left) 0.733 -1.0 0.5 Normal Total Hip (Left) 1.025 0.7 1.9 Normal Femoral Neck (Right) 0.725 -1.1 0.4 Osteopenia Total Hip (Right) 1.015 0.6 1.8 Normal Total Hip Mean 1.020 0.7 1.9 Normal World Health Organization criteria for BMD impression classify patients as: Normal (T-score at or above -1.0), Osteopenia (T-score between -1.0 and -2.5), or Osteoporosis (T-score at or below -2.5). 10-year Fracture Risk(1): Major Osteoporotic Fracture 24% Hip Fracture 1.0% Reported Risk Factors: [place] (), Neck BMD=0.725, BMI=34.0, previous fracture, parental fracture (1) FRAX(R) Version 3.08. Fracture probability calculated for an untreated patient. Fracture probability may be lower if the patient has received treatment. Clinical Information Provided by Patient: Has had a low trauma fracture Parent has had a hip fracture Patient maximum height was 65 No regular weight bearing exercise Drinks caffeinated beverages Onset of menses at age 10 Number of children 2 Impression: The patient has low bone mass, based on the Right Femoral Neck T-score. The patient has an estimated ten-year risk of hip fracture of 1% and an estimated ten-year risk of major fracture of 24%, based on the WHO FRAX algorithm. The patient has risk factors, including: parental hip fracture, previous fracture. Discussion: BONE DENSITY IS LOW AT ONE OR MORE SKELETAL SITES. THE PATIENT'S BMD AND CLINICAL RISK FACTORS CONTRIBUTE TO THIS PATIENT'S INCREASED RISK OF FRACTURE. This patient's lowest T-score is low at one or more skeletal sites. It meets the World Health Organization's (WHO) criteria for ?low bone mass? (T-score between -1.0 and -2.5). The patient's 10-year risk of a major osteoporotic fracture as calculated by FRAX exceeds the threshold where pharmacological therapy is recommended by the National Osteoporosis Foundation (NOF). However, all treatment decisions require clinical judgment and consideration of individual patient factors, including patient preferences, comorbidities, previous drug use, risk factors not captured in the FRAX model (e.g., frailty, falls, vitamin D deficiency, increased bone turnover, interval significant decline in bone density) and possible under or overestimation of fracture risk by FRAX. The patient should follow a healthful lifestyle (good nutrition with adequate calcium and vitamin D, and appropriate weight-bearing exercise). Follow-Up: Consider a repeat BMD and Vertebral Fracture Assessment (VFA) exam in 2 years or sooner if medically necessary, to reassess this patient's status. Reported by: SHEYLA on 03/29/2025 3:57:00 PM. Reviewed, dictated and finalized at location A.
--- OUTSIDE RECORDS SUMMARY | 2025-03-29 16:53 | XMS_ITS | Clinical Summary ---
Author Organization 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 Medications aspirin 81 mg enteric coated tabletIndication s:Myocardial Reinfarction Prevention Take 1 tablet (81 mg total) by mouth daily Active insulin glargine 100 unit/mL (3 mL) pen for injectionIndicat ions:type 2 diabetes mellitus Inject 40 Units under the skin daily AT HS Active metoprolol tartrate (LOPRESSOR) 50 mg immediate release tabletIndication s:coronary artery disease Take 1 tablet (50 mg total) by mouth daily Active insulin lispro (HumaLOG, ADMELOG) 100 unit/mL vial for injectionIndicat ions:type 2 diabetes mellitus Inject 13 Units under the skin 3 (three) times a day before meals Active calcium carbonate (CALCIUM 600 ORAL) Take by mouth Active rosuvastatin (CRESTOR) 20 mg tablet Take 1 tablet (20 mg total) by mouth daily Active multivitamin with iron tablet Take 1 tablet by mouth daily Active gabapentin (NEURONTIN) 300 mg capsule Take 1 capsule (300 mg total) by mouth 3 (three) times a day Active OneTouch Verio test strips strip USE 1 STRIP TO CHECK GLUCOSE 4 TIMES DAILY BEFORE MEAL(S) 05/03/20 20 Active insulin aspart U-100 (NovoLOG) 100 unit/mL injection Inject under the skin 3 times daily Active ketoconazole (NIZORAL) 2 % cream ketoconazole 2 % topical cream APPLY TO THE AFFECTED NAIL(S) ONCE DAILY Active lactulose solution 10 gram/15mL Constulose 10 gram/15 mL oral solution TAKE 30 ML BY MOUTH TWICE DAILY Active OneTouch Delica Plus Lancet 33 gauge misc USE DIRECTED 4 TIMES DAILY BEFORE MEAL(S) 05/03/20 Active Linzess 72 mcg capsule 07/18/19 21 Active metoprolol XL (TOPROL-XL) 50 mg extended release tablet metoprolol succinate ER 50 mg tablet,extended release 24 hr Active Tab-A-Irma 400 mcg tablet Take 1 tablet by mouth daily 04/25/20 Active nitroglycerin (NITROSTAT) 0.4 mg SL tablet Nitrostat 0.4 mg sublingual tablet Active nystatin cream nystatin 100,000 unit/gram topical cream Active BD Ultra-Fine Mini Pen Needle 31 gauge x 3/16 needle USE DIRECTED 4 TIMES DAILY 04/25/20 20 Active sulfamethoxazole -trimethoprim (BACTRIM DS) 800-160 mg per tablet sulfamethoxazole 800 mg-trimethoprim 160 mg tablet TAKE 2 TABLETS BY MOUTH EVERY 12 HOURS Active BD Lo-Dose Micro-Fine IV 1/2 mL 28 gauge x 1/2 syringe USE TO ADMINISTER INSULIN FOUR TIMES DAILY 04/26/20 20 Active tolnaftate (TINACTIN) 1 % powder Antifungal (tolnaftate) 1 % topical powder APPLY POWDER EXTERNALLY EVERY 12 HOURS Active triamcinolone (KENALOG) 0.1 % cream triamcinolone acetonide 0.1 % topical cream APPLY CREAM EXTERNALLY TO AFFECTED AREA TWICE DAILY NEEDED Active Contour Next EZ Meter misc 04/23/20 Active Farxiga 10 mg tablet 03/26/20 21 Active furosemide (LASIX) 20 mg tablet 02/17/20 Active HumuLIN R U-500 500 unit/mL (3 mL) CONCENTRATED pen for injection 03/24/20 21 Active isosorbide mononitrate ER (IMDUR) 30 mg 24 hr tablet 02/28/20 Active lidocaine jelly (XYLOCAINE) 2 % 01/18/20 Active insulin syringe-needle U-100 0.3 mL 31 gauge x 5/16 syringe 03/08/20 21 Active ergocalciferol (VITAMIN D) 50,000 unit capsule 03/26/20 21 Active progesterone (PROMETRIUM) 100 mg capsule TAKE 1 CAPSULE BY MOUTH ONCE DAILY FOR 12 DAYS 06/19/19 22 Active fluticasone propionate (Flonase Allergy Relief) 50 mcg/actuation nasal spray Administer 1 spray into each nostril 2 (two) times a day 1 each 3 06/27/19 23 Active cholecalciferol 25 mcg (1,000 unit) tablet Take 1 tablet (1,000 Units total) by mouth daily Active Jardiance 10 mg tablet Take 1 tablet (10 mg total) by mouth daily 01/30/20 24 Active Mounjaro 7.5 mg/0.5 mL pen injector INJECT 1 SYRINGE SUBCUTANEOUSLY ONCE A WEEK FOR 4 WEEKS THEN INCREASE TO 10MG WEEKLY 03/12/20 24 Active traMADoL (ULTRAM) 50 mg tablet TAKE 1 TABLET BY MOUTH EVERY 8 HOURS FOR [address] (CYMBALTA) 60 mg capsule Take 1 capsule (60 mg total) by mouth daily 02/10/20 24 Active tiotropium bromide (Spiriva Respimat) 2.5 mcg/actuation inhaler Inhale 2 puffs daily 3 each 3 10/12/19 25 Active albuterol HFA (Ventolin HFA) 90 mcg/actuation inhaler Inhale 2 puffs every 6 (six) hours as needed for wheezing 1 each 3 10/12/19 25 Active Active Problems Problem Noted Date Diagnosed Date Abnormal CT of the chest 04/12/2024 Simple chronic bronchitis 04/12/2024 BMI 37.0-37.9, adult 06/27/2022 BMI 40.0-44.9, adult 10/23/2021 Leg swelling 12/19/2020 Centrilobular emphysema 11/11/2019 Obstructive sleep apnea 11/11/2019 Restrictive lung disease 11/11/2019 Shortness of breath 07/13/2019 Chronic cough 07/13/2019 Cigarette nicotine dependence in remission 07/12 Sleep disorder 07/13/2019 S/P CABG x 6 07/13/2019 Immunizations Immunization Administration Dates Next Due Influenza, Quadrivalent, Split, Intramuscular Tdap 01/02/2009 Surgical History Surgery Date Site/Laterality Comments HEART SURGERY 04/01/2018 COLONOSCOPY 03/25/2019 CYST REMOVAL Medical History Medical History Date Comments Diabetes mellitus Cataract Family History Medical History Relation Name Comments Prostate cancer Father Dementia Mother Diabetes Mother Hypertension Mother Kidney failure Mother Relation Name Status Comments Father Alive Mother Social History Tobacco Use Types Packs/Day Years Used Date Smoking Tobacco: Former Cigarettes 1 40 1 [id number] Smokeless Tobacco: Never Comments No Sex and Gender Information Value Date Recorded Sex Assigned at Not on file 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 Gender Identity Not on file Sexual Orientation Not on file Last Filed Vital Signs Vital Sign Reading Time Taken Comments Blood Pressure 114/70 10/11/2024 3:13 PM CDT Pulse 84 10/11/2024 3:13 PM CDT Temperature 36.8 C (98.2 F) 10/11/2024 3:13 PM CDT Respiratory Rate 18 10/11/2024 3:13 PM CDT Oxygen Saturation 96% 10/11/2024 3:13 PM CDT Inhaled Oxygen Concentration - - Weight 100.2 kg (221 lb) 10/11/2024 3:13 PM CDT Height 162.6 cm (5' 4.02) 10/11/2024 3:13 PM CD T Body Mass Index 37.92 10/11/2024 3:13 PM CDT Plan of Treatment Health Maintenance Due Date Last Done Comments Cervical Cancer Screening 1959 Colon Cancer Screening-Colonoscopy 1959 Depression Screening 1959 Fall Risk Assessment 1959 Hepatitis C Screening 1959 Osteoporosis Screening-Bone Density Scan 1959 Hepatitis B Screening 12/30/1977 Pneumococcal vaccine 65+ (1 of 2 - PCV) 12/30/1978 Zoster Vaccine (1 of 2) 12/30/2009 Breast Cancer Screening-Mammogram 09/26/2024 09/27/2023, 09/27/2023, 09/07/2022, Additional history exists Well Visit 65+ 12/30/2024 Influenza Vaccine (#1) 2025 02/01/2023, 2018 Lung Cancer Screening 07/30/2025 07/29/2024, 024 DTaP/Tdap/Td Vaccine (3 - Td or Tdap) 12/20/2033 12/21/2023, 01/02/2009 Procedures Procedure Name Priority Date/Time Associated Diagnosis Comments CT LUNG CANCER SCREENING Schedule Routine, Read Routine (OP Routine) 07/29/2024 2:53 PM CDT Personal history of nicotine dependence DIGITAL MAMMOGRAPHY Routine 08/26/2015 1 0:57 AM CDT from Last 3 Months or Most Recently Relevant to Health Maintenance Results * CT Lung Cancer Screening (07/29/2024 2:53 PM CDT) Anatomical Region Laterality Modality Chest N/A Computed Tomogra phy 08/04/2024 9:22 AM CDT Narrative 08/04/2024 11:08 AM CDT EXAM DESCRIPTION: CT LUNG CANCER SCREENING REASON FOR STUDY: Screening CT of the chest in a former smoker with a 31 pack year smoking history. Additional history: None. TECHNIQUE: Low dose CT scan of the chest was performed without intravenous contrast using helical scanning technique. The exam extends from the lung apices through the lung bases. Automatic exposure control was used as a dose optimization technique. NOTE: This study was performed for the specific purposes of lung cancer screening and is not an alternative to diagnostic chest CT. RADIATION DOSE: CT dose index volume (CTDIvol) = 2.96 mGy COMPARISON: CT chest 07/28/2023 FINDINGS: SMOKING RELATED LUNG DISEASE: No significant emphysematous change. LUNG NODULES: The previously new 1.5 cm left lower lobe ground-glass nodule has resolved. No suspicious lung nodules are identified. CORONARY ARTERY CALCIFICATION: Severe calcifications of the [place] coronary arteries. Postoperative changes of a CABG. OTHER: No focal consolidation, pneumothorax, or pleural effusion. The central airways are clear. No mediastinal mass. No thoracic lymphadenopathy. The heart is normal in size. No pericardial effusion. Mild atherosclerotic calcifications of the thoracic aorta. No thoracic aortic aneurysm. No acute fractures or suspicious osseous lesions. The visualized upper abdomen is normal. IMPRESSION: Resolution of the previously new 1.5 cm left lower lobe ground-glass pulmonary nodule. No suspicious nodules are identified. Lung-RADS category 1: Negative. Recommendation: Low dose Screening CT of chest in 12 months. THIS IS AN ELECTRONICALLY VERIFIED FINAL REPORT 08/04/2024 11:08 AM - Electronically signed by Isma SANCHEZ T: Report ID: [id number] Reading Location: [id number] Procedure Note Isma Alvarez MD - 08/04/2024 EXAM DESCRIPTION: CT LUNG CANCER SCREENING REASON FOR STUDY: Screening CT of the chest in a former smoker with a31 pack year smoking history. Additional history: None. TECHNIQUE: Low dose CT scan of the chest was performed without intravenous contrast using helical scanning technique. The exam extends from the lung apices through the lung bases. Automatic exposure control was used as adose optimization technique. NOTE: This study was performed for the specific purposes of lung cancer screening and is not an alternative to diagnostic chest CT. RADIATION DOSE: CT dose index volume (CTDIvol) = 2.96 mGy COMPARISON: CT chest 07/28/2023 FINDINGS: SMOKING RELATED LUNG DISEASE: No significant emphysematouschange. LUNG NODULES: The previously new 1.5 cm left lower lobe ground-glassnodule has resolved. No suspicious lung nodules are identified. CORONARY ARTERY CALCIFICATION: Severe calcifications of the nativecoronary arteries. Postoperative changes of a CABG. OTHER: No focal consolidation, pneumothorax, or pleural effusion. The central airways are clear. No mediastinal mass. No thoraciclymphadenopathy. The heart is normal in size. No pericardial effusion. Mildatherosclerotic calcifications of the thoracic aorta. No thoracic aortic aneurysm. Noacute fractures or suspicious osseous lesions. The visualized upper abdomen is normal. IMPRESSION: Resolution of the previously new 1.5 cm left lower lobe ground-glass pulmonary nodule. No suspicious nodules are identified. Lung-RADS category 1: Negative. Recommendation: Low dose Screening CT of chest in 12 months. THIS IS AN ELECTRONICALLY VERIFIED FINAL REPORT 08/04/2024 11:08 AM - Electronically signed by Isma SANCHEZ T: Report ID: [id number] Reading Location: [id number] Rakan Santizo MD IMG CT PROCEDURES Final Res ult * DIGITAL MAMMOGRAPHY (08/26/2015 10:57 AM CDT) Anatomical Region Laterality Modality Breast Mammography 08/26/2015 10:5 7 AM CDT Narrative 09/15/2015 10:37 AM CDT Addendum Begins ADDENDED REPORT 09/15/2015 Addendum: FILMS COMPARED: The present examination has been compared to prior imaging studies performed on 03/28/2009 and 03/28/2010. MAMMOGRAM FINDINGS: Upon further review, there are no suspicious masses, calcifications or other abnormalities. IMPRESSION: Upon further review, there is no mammographic evidence of malignancy. Management of any palpable abnormality should be based on clinical grounds. A return to screening mammogram in 1 year is recommended. BI-RADS Category 1: Negative Addendum Ends EXAM: Bilateral Screening Mammogram Bilateral - 08/26/2015 HISTORY: Patient is a 54 year old female and is seen for screening. FILMS COMPARED: Prior films will be obtained from an outside location. MAMMOGRAM FINDINGS: Bilateral standard full field digital breast images were obtained. Computer Aided Detection of the 2D images was performed with Des[employer]ubre.[email or web address] version 9.3. There are scattered fibroglandular densities. IMPRESSION: Findings require additional evaluation. Old films are required for comparison. BI-RADS Category 0: Incomplete: Need Comparison Films Radiologist: MADELEINE CALLE Attending: MATHEW HUNG Requesting: MATHEW HUNG Requesting Requesting ID: [id number] Attending Attending ID: [id number] Completed Time: 08/26/2015 10:57 AM Dictated Time: N/A Transcribed Time: 08/28/2015 10:03 AM Signed by: MADELEINE CALLE on 09/15/2015 10:37 AM Report To 1 ID: Report To 1 Name: , Report To 1 FAX: Report To 2 ID: Report To 2 Name: , Report To 2 FAX: Report To 3 ID: Report To 3 Name: , Report To 3 FAX: NextGen Order #: Procedure Note Provider, MD Greyson - 08/25/2016 Addendum Begins ADDENDED REPORT 09/15/2015 Addendum: FILMS COMPARED: The present examination has been compared to prior imaging studies performed on 03/28/2009 and 03/28/2010. MAMMOGRAM FINDINGS: Upon further review, there are no suspicious masses, calcifications or other abnormalities. IMPRESSION: Upon further review, there is no mammographic evidence of malignancy. Management of any palpable abnormality should be based on clinical grounds. A return to screening mammogram in 1 year is recommended. BI-RADS Category 1: Negative Addendum Ends EXAM: Bilateral Screening Mammogram Bilateral - 08/26/2015 HISTORY: Patient is a 54 year old female and is seen for screening. FILMS COMPARED: Prior films will be obtained from an outside location. MAMMOGRAM FINDINGS: Bilateral standard full field digital breast images were obtained. Computer Aided Detection of the 2D images was performed with [employer]3 version 9.3. There are scattered fibroglandular densities. IMPRESSION: Findings require additional evaluation. Old films are required for comparison. BI-RADS Category 0: Incomplete: Need Comparison Films Radiologist: MADELEINE CALLE Attending: MATHEW HUNG Requesting: MATHEW HUNG Requesting Requesting ID: [id number] Attending Attending ID: [id number] Completed Time: 08/26/2015 10:57 AM Dictated Time: N/A Transcribed Time: 08/28/2015 10:03 AM Signed by: MADELEINE CALLE on 09/15/2015 10:37 AM Report To 1 ID: Report To 1 Name: , Report To 1 FAX: Report To 2 ID: Report To 2 Name: , Report To 2 FAX: Report To 3 ID: Report To 3 Name: , Report To 3 FAX: NextGen Order #: Historical Provider MD [facility]AM[facility] PROCEDURES Sara benítez Result from Last 3 Months or Most Recently Relevant to Health Maintenance Insurance [facility] CHOICE [facility] Member Subscriber Plan / Payer (Ef fective 2020-Present) Name:Lynn Whitt Relation to Subscriber:Self Name:Lynn Whitt Payer ID:[id number] (NAIC) Type:MEDICARE RISK OTHER Address: [address] 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
--- OUTSIDE RECORDS SUMMARY | 2025-03-29 16:53 | XMS_ITS | Encounter Summary ---
Author Organization [facility] Address [address], [place] [address] Phone Care Team Providers Care Basket Mender Name Role Phone Sanju Gaines DO Primary Care Provider [phone] Reason for Visit * Reason Comments Med Refill Encounter Details Date Type Department Care Team (Late Contact Info) Description 11/28/2020 Refill [facility] [address] [id number] Jorge L Contreras MD [address] [address] Social History Tobacco Use Types Packs/Day Years Used Date Smoking Tobacco: Former Smokeless Tobacco: Never Alcohol Use Standard Drinks/Week Comments Never 0 (1 standard drink = 0.6 oz pur e alcohol) AUDIT-C Answer Date Recorded Frequency of Alcohol Consumption Never 12/10/2018 Average Number of Drinks Not on file 019 Frequency of Binge Drinking Not on file 12/2018 Comments Unknown Sex and Gender Information Value Date Recorded Sex Assigned at Not on file Legal Sex Female 4:07 PM MDT Gender Identity Not on file Sexual Orientation Not on file documented as of this encounter Plan of Treatment Upcoming Encounters Date Type Department Care Team (Late Contact Info) Description 06/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 [address] [place] [address] Amisha Coronado NP [address] [facility] 1 [place], [place] [id number] documented as of this encounter Visit Diagnoses Not on filedocumented in this encounter Care Teams Basket Mender Relationship Specialty Start Date End Date Sanju Gaines DO [address] [place] [address] PCP - General 08/14/20 documented as of this encounter
--- OUTSIDE RECORDS SUMMARY | 2025-03-29 16:53 | XMS_ITS | Data Portability ---
Author Organization [place] - [facility] OFFICE Address [address] [place] [address] Care Team Providers Care Chemical Compounder Name Role Phone LITO JEFF Primary Care Provider [phone] Assessment Encounter Date Assessment Date Assessment LastModified by Organization Details LastModified Time 09/30/2023 09/30/2023 Patient Examined by LISA Young, Also Documentation reviewed and approved by supervising physician esto Not available 09/29/2023 15:02:44 Plan of Treatment Reminders Order Date Submit Date Provider Last Modified By Organization Details Last Modified Time Details Appointments ESTABLISH ED PATIENT DETAILED 2024 04:00P M Jimbo Dorsey i, MD Not available Not available Not available Lab None recorded. Referral None recorded. Procedures None recorded. Surgeries None recorded. Imaging None recorded. Medication Orders nitroglyc oral 0.4 mg sublingua l tablet 2024 025 [facility], [address] [place], [address], 08/31/2024 17:52:08 Jardiance 10 mg tablet 2023 024 [facility], [address] [place], [address], 12/02/2023 16:21:02 Patient TargetsNo targets recorded. Patient Instructions Encounter Date Encounter Id Patient Instructions Last Modified By Organization Details Last Modified Time 09/30/2023 [id number] Exercise advised Low cholesterol diet advised Low sodium diet advised. [email or web address] Not available 09/30/2023 16:15:19 Reason for Referral None Reported. Results Created Date Observation Date Name Description Value Unit Range Abnormal Flag Note LastModifiedBy Organization Detail LastModifiedTime 09/30/19 24 09/16/2023 elect rocar diogr am No observ ation record ed. [email or web address] Not Available 2023 11:08:21 06/09/19 25 06/08/2024 elect rocar diogr am No observ ation record ed. [email or web address] Not Available 2024 12:31:41 08/29/19 25 08/21/2024 aquiles can cardi olite stres s test (PROC ) No observ ation record ed. [email or web address] Not Available 2024 12:01:46 11/20/19 25 10/28/2024 US, doppl er, arter ial No observ ation record ed. [email or web address] Not Available 2024 09:36:18 Result Notes None recorded. Problems Name Problem SNOMED Code Status Onset Date Resolution Date Notes Provider Name and Address Organization Details Recorded Time Coronary arterioscle rosis 44264686 Active 2018 Denise velez [place] - [facility] 9 04:21:13 Type 2 diabetes mellitus 31111775 Active 2018 starting Byeta COORD-DM trial Vanessa capasso2- 25-20 Denise velez [place] - [facility] 4 11:23:58 Hyperlipide lorrie 56884036 Active 2018 Denise velez [place] - [facility] 4 11:23:30 Acute non-ST segment elevation myocardial infarction 401041947 Active 2018 Denise velez [place] - [facility] 9 04:25:09 Essential hypertensio n 64350997 Active 2018 Denise velez [place] - [facility] 4 11:23:27 Multi vessel coronary artery disease 462051324 Active 2018 Alexa velez [place] - [facility] 9 06:02:32 Electrocard iogram abnormal 424272742 Active 2018 Alexa velez [place] - [facility] 9 06:03:22 Atypical chest pain 636921889 Active 2019 Denise Adame [facility] 0 16:14:23 Obesity 876953338 Active 2019 Denise Adame [facility] 0 16:14:34 Obstructive sleep apnea syndrome 37445112 Active 2019 Denise Adame [facility] 4 11:23:39 Peripheral vascular disease 213419512 Active 2019 Denise Adame [facility] 0 04:00:20 Problem Notes None recorded. Procedures Surgical History Date Name Laterality Status Provider Name and Address Organization Details Recorded Time Cabg vein two completed [facility] 05/16/2018 04:29:41 section completed [facility] 05/19/2018 17:20:33 hernia repair completed [facility] 05/19/2018 17:20:42 procedure on gallbladder completed [facility] 05/19/2018 17:20:51 Imaging Results None recorded. Procedure Notes None recorded. Medical Equipment None Reported. Allergies No known drug allergies Medications Name Sig Start Date Stop Date Status Note LastModified by Organization Details LastModified Time insulin syrg mis 1ml/29g 04/06 completed Not Available Not Available Not Available relion pen needles 32g x 4mm 32g x 4 mm misc 09/25 completed Not Available Not Available Not Available amoxicill in 500 mg capsule TAKE 1 CAPSULE BY MOUTH THREE TIMES DAILY UNTIL GONE 03/04 completed pt is no longer taking 07/04/22 SA Not Available Not Available Not Available atorvasta tin 40 mg tablet Take 1 tablet every day by oral route as directed . 06/30 completed Not Available Not Available Not Available terconazo le 0.4 % vaginal cream INSERT 1 APPLICAT ORFUL VAGINALL Y ONCE DAILY FOR 7 DAYS 09/29 completed Not Available Not Available Not Available doxycycli ne hyclate 100 mg capsule TAKE 1 CAPSULE BY MOUTH ONCE DAILY FOR 7 DAYS 06/08 completed Not Available Not Available Not Available albuterol sulfate 2.5 mg/3 mL (0.083 %) solution for nebulizat ion USE 1 VIAL IN NEBULIZE R EVERY 4 TO 6 HOURS NEEDED FOR SHORTNES S OF BREATH FOR WHEEZING active Not Available Not Available No t Available azithromy viktoria 250 mg tablet TAKE 2 TABLETS BY MOUTH ON DAY 1, AND THEN TAKE 1 TABLET BY MOUTH ONCE A DAY ON DAY 2 THROUGH DAY 5 06/08 completed Not Available Not Available Not Available ibuprofen 800 mg tablet TAKE 1 TABLET BY MOUTH EVERY 8 HOURS NEEDED FOR PAIN 09/29 completed Not Available Not Available Not Available ofloxacin 0.3 % eye drops INSTILL 1 DROP INTO RIGHT EYE 4 TIMES DAILY active Not Available Not Available No t Available tizanidin e 4 mg tablet TAKE 1 TABLET BY MOUTH EVERY 8 HOURS NEEDED active Not Available Not Available No t Available fluconazo le 150 mg tablet TAKE 1 TABLET BY MOUTH NOW THEN REPEAT IN 3 DAYS 09/29 completed Not Available Not Available Not Available metoprolo l succinate ER 50 mg tablet,ex tended release 24 hr TAKE 1 TABLET BY MOUTH ONCE DAILY active Not Available Not Available No t Available hydrocodo ne 5 mg-acetam inophen 325 mg tablet 05/19 completed Not Available Not Available Not Available prednison e 20 mg tablet TAKE 2 TABLETS BY MOUTH ONCE DAILY FOR 5 DAYS 09/29 completed Not Available Not Available Not Available isosorbid e mononitra te ER 30 mg tablet,ex tended release 24 hr Take 1 tablet by mouth once daily 2023 active Not Available Not Available Not Avai lable clindamyc in HCl 150 mg capsule TAKE 3 CAPSULES BY MOUTH EVERY 6 HOURS FOR 10 DAYS 03/11 completed Not Available Not Available Not Available potassium chloride ER 10 mEq tablet,ex tended release 05/19 completed Not Available Not Available Not Available ciproflox acin 500 mg tablet Take 1 tablet every 12 hours by oral route. 07/18 completed Not Available Not Available Not Available sulfameth oxazole 800 mg-trimet hoprim 160 mg tablet TAKE 1 TABLET BY MOUTH TWICE DAILY FOR 7 DAYS 06/08 completed Not Available Not Available Not Available aspirin 81 mg tablet,de layed release Take 1 tablet every day by oral route as directed . active Not Available Not Available No t Available tramadol 50 mg tablet TAKE 1 TABLET BY MOUTH EVERY 8 HOURS FOR 10 DAYS 06/08 completed Not Available Not Available Not Available triamcino lone acetonide 0.1 % topical cream 06/01 completed Not Available Not Available Not Available ondansetr on 8 mg disintegr ating tablet DISSOLVE 1 TABLET IN MOUTH EVERY 8 HOURS NEEDED FOR NAUSEA AND VOMITING active Not Available Not Available No t Available cefadroxi l 500 mg capsule 03/04 completed pt is no longer taking 07/04/22 SA Not Available Not Available Not Available ciclopiro x 8 % topical solution APPLY SOLUTION TOPICALL Y ONCE DAILY active Not Available Not Available No t Available prednisol one acetate 1 % eye drops,kelsea pension INSTILL 1 DROP INTO RIGHT EYE 4 TIMES DAILY active Not Available Not Available No t Available benzonata te 100 mg capsule TAKE 1 CAPSULE BY MOUTH THREE TIMES DAILY NEEDED FOR COUGH 03/11 completed Not Available Not Available Not Available cephalexi n 500 mg capsule TAKE 1 CAPSULE BY MOUTH 4 TIMES DAILY FOR 10 DAYS 03/04 completed Not Available Not Available Not Available metformin 1,000 mg tablet BID 04/24 completed pt no longer takes 04/24/20 21 nj Not Available Not Available Not Available nystatin 100,000 unit/gram topical cream 06/01 completed Not Available Not Available Not Available nitroglyc oral 0.4 mg sublingua l tablet DISSOLVE ONE TABLET UNDER THE TONGUE EVERY 5 MINUTES NEEDED FOR CHEST PAIN. DO NOT EXCEED A TOTAL OF 3 DOSES IN 15 MINUTES active Not Available Not Available No t Available gabapenti n 300 mg capsule TAKE 1 CAPSULE BY MOUTH TWICE DAILY AND THEN 2 AT BEDTIME active Not Available Not Available No t Available gentamici n 0.1 % topical cream APPLY 1 CREAM TOPICALL Y ONCE DAILY 11/30 completed Not Available Not Available Not Available mupirocin 2 % topical ointment 04/06 completed Not Available Not Available Not Available furosemid e 20 mg tablet TAKE 2 TABLETS BY MOUTH ONCE DAILY IN THE MORNING active Not Available Not Available No t Available ergocalci ferol (vitamin D2) 1,250 mcg (50,000 unit) capsule TAKE 1 CAPSULE BY MOUTH ONCE A WEEK FOR 14 WEEKS active Not Available Not Available No t Available levofloxa viktoria 500 mg tablet 05/19 completed Not Available Not Available Not Available levofloxa viktoria 750 mg tablet 05/19 completed Not Available Not Available Not Available albuterol sulfate HFA 90 mcg/actua tion aerosol inhaler INHALE 2 PUFFS BY MOUTH EVERY 6 HOURS NEEDED FOR WHEEZING active Not Available Not Available No t Available cefdinir 300 mg capsule TAKE 1 CAPSULE BY MOUTH TWICE DAILY FOR 2 DAYS 09/29 completed Not Available Not Available Not Available fluticaso ne propionat e 50 mcg/actua tion nasal spray,kelsea pension USE 1 SPRAY(S) IN EACH NOSTRIL TWICE DAILY active Not Available Not Available No t Available metformin ER 500 mg tablet,ex tended release 24 hr Take 1 tablet twice a day by oral route as directed . 04/06 completed Not Available Not Available Not Available lisinopri l 2.5 mg tablet Take 1 tablet every day by oral route. 04/24 completed New start. aware that the spatient has Cr 1.3 Will check CMP in 2-3 weekspt states she does not take 02/28/20 21 nj Not Available Not Available Not Available naproxen 500 mg tablet TAKE 1 TABLET BY MOUTH TWICE DAILY WITH MEALS active Not Available Not Available No t Available progester one micronize d 100 mg capsule TAKE 1 CAPSULE BY MOUTH ONCE DAILY active Not Available Not Available No t Available amoxicill in 875 mg-potass ium clavulana te 125 mg tablet TAKE 1 TABLET BY MOUTH TWICE DAILY FOR 7 DAYS 06/08 completed Not Available Not Available Not Available Novolog FlexPen U-100 Insulin aspart 100 unit/mL (3 mL) subcutane ous Inject 9 units every day by subcutan eous route. 09/29 completed takes up to 20 units/mL dependin g on blood sugar Not Available Not Available Not Available rosuvasta tin 20 mg tablet TAKE 1 TABLET BY MOUTH ONCE DAILY active Not Available Not Available No t Available duloxetin e 30 mg capsule,d elayed release TAKE 1 CAPSULE BY MOUTH ONCE DAILY 06/08 completed Not Available Not Available Not Available duloxetin e 60 mg capsule,d elayed release TAKE 1 CAPSULE BY MOUTH ONCE DAILY active Not Available Not Available No t Available BD Ultra-Fin e Mini Pen Needle 31 gauge x 3/16 09/29 completed Not Available Not Available Not Available Byetta 5 mcg/dose (250 mcg/mL)1. 2 mL subcutane ous pen injector Inject 5 microgra ms twice a day by subcutan eous route before meals. 09/29 completed To take 60 minutes before breakfas t and 60 minutes before dinner evening meal.pt no longer takes 04/24/20 nj Not Available Not Available Not Available Humulin 70/30 U-100 Insulin 09/13 completed Not Available Not Available Not Available Lantus Solostar U-100 Insulin 100 unit/mL (3 mL) subcutane ous pen Inject 55 units twice a day by subcutan eous route. 04/12 completed Not Available Not Available Not Available DOK 100 mg tablet Take 1 tablet every day by oral route. 07/27 completed pt no longer takes 04/24/20 nj Not Available Not Available Not Available pen needle, diabetic 32 gauge x /32 USE 1 IN THE MORNING AND 1 IN THE EVENING active Not Available Not Available No t Available Contour Next Test Strips USE 1 STRIP TO CHECK GLUCOSE FIVE TIMES DAILY active Not Available Not Available No t Available Linzess 03/04 completed Not Available Not Available Not Available Farxiga 10 mg tablet TAKE 1 TABLET BY MOUTH ONCE DAILY active Not Available Not Available No t Available Jardiance 10 mg tablet TAKE 1 TABLET BY MOUTH ONCE DAILY active Not Available Not Available No t Available OneTouch Verio Meter 03/04 completed Not Available Not Available Not Available Humulin R U-500 (Conc) Insulin Kwikpen 500 unit/mL (3 mL) subcutane ous INJECT 110 UNITS SUBCUTAN EOUSLY BEFORE BREAKFAS T, 65 UNITS BEFORE LUNCH AND 45 UNITS BEFORE DINNER. MAX DAILY DOSE 220 active Not Available Not Available No t Available Linzess 72 mcg capsule TAKE 1 CAPSULE BY MOUTH ONCE DAILY active Not Available Not Available No t Available BD Ultra-Fin e Micro Pen Needle 32 gauge x 1/4 USE 1 SUBCUTAN EOUSLY IN THE MORNING AND 1 IN THE EVENING DIRECTED active Not Available Not Available No t Available Admelog U-100 Insulin lispro 100 unit/mL subcutane ous solution Inject 13 units 3 times a day by sub-q route with meals. 07/27 completed pt no longer takes 02/28/20 21 nj Not Available Not Available Not Available Dexcom G6 Fbi Profiler USE DIRECTED 09/29 completed Not Available Not Available Not Available Dexcom G6 Transmitt er device USE TO MONITOR GLUCOSE; CHANGE EVERY 90 DAYS 09/29 completed Not Available Not Available Not Available Baqsimi 3 mg/actuat ion nasal spray USE INTRANAS ALLY ONCE NEEDED A SINGLE DOSE 12/01 completed Not Available Not Available Not Available Ozempic 1 mg/dose (4 mg/3 mL) subcutane ous pen injector INJECT 1 MG SUBCUTAN EOUSLY ONCE A WEEK 09/15 completed Not Available Not Available Not Available Ozempic 2 mg/dose (8 mg/3 mL) subcutane ous pen injector INJECT 2MG SUBCUTAN EOUSLY ONCE WEEKLY FOR 90 DAYS 09/15 completed Not Available Not Available Not Available Mounjaro 7.5 mg/0.5 mL subcutane ous pen injector INJECT 1 SYRINGE SUBCUTAN EOUSLY ONCE A WEEK active Not Available Not Available No t Available Mounjaro 5 mg/0.5 mL subcutane ous pen injector INJECT 1 SYRINGE SUBCUTAN EOUSLY ONCE A WEEK active Not Available Not Available No t Available Mounjaro 15 mg/0.5 mL subcutane ous pen injector INJECT 1 PEN SUBCUTAN EOUSLY ONCE A WEEK active Not Available Not Available No t Available Mounjaro 10 mg/0.5 mL subcutane ous pen injector INJECT 1 SYRINGE SUBCUTAN EOUSLY ONCE A WEEK active Not Available Not Available No t Available Mounjaro 12.5 mg/0.5 mL subcutane ous pen injector INJECT 1 SYRINGE SUBCUTAN EOUSLY ONCE A WEEK active Not Available Not Available No t Available FreeStyle Pete 3 Plus Sensor device USE TO MONITOR GLUCOSE active Not Available Not Available No t Available Vitals Date Recorded Body height Body mass index (BMI) Body weight Heart rate Oxygen saturation Systolic And Diastolic Provider Name and Address Organization Details Last Updated DateTime 5 162.56 cm 39 kg/m2 886403. 47 g 80 /min 99 % 129/69 mm[Hg] Afshan Jerry [facility] 5 09:53:24 Date Recorded Body height Body mass index (BMI) Body weight Heart rate Oxygen saturation Systolic And Diastolic Provider Name and Address Organization Details Last Updated DateTime 5 162.56 cm 39.1 kg/m2 428632. 06 g 79 /min 96 % 130/62 mm[Hg] Lina Vladislav [facility] 5 17:33:42 Date Recorded Body height Body mass index (BMI) Body weight Heart rate Oxygen saturation Systolic And Diastolic Provider Name and Address Organization Details Last Updated DateTime 4 162.56 cm 39.8 kg/m2 653996. 43 g 70 /min 94 % 136/63 mm[Hg] Afsahn Zavalause [facility] 4 16:02:40 Date Recorded Body height Body mass index (BMI) Body weight Heart rate Oxygen saturation Systolic And Diastolic Provider Name and Address Organization Details Last Updated DateTime 5 162.56 cm 38.3 kg/m2 562690. 54 g 81 /min 97 % 122/82 mm[Hg] Nelly Isaac [facility] 5 17:28:37 Date Recorded Body height Body mass index (BMI) Body weight Heart rate Oxygen saturation Systolic And Diastolic Provider Name and Address Organization Details Last Updated DateTime 4 162.56 cm 40.5 kg/m2 315218. 8 g 79 /min 97 % 126/62 mm[Hg] Lina Vladislav [facility] 4 16:01:09 Social History Question Answer Notes LastModified by Organizat ion Details LastModified Time Tobacco Smoking Status Former Smoker quit 03/27/18 Not Available [facility] 03/07/2020 03:30:43 What Is Your Level Of Caffeine Consumption? Moderate [id number] Information not available 03/07/2020 How Much Tobacco Do You Chew? None [id number] Information not available 03/07/2020 What Type Of Diet Are You Following? REGULAR [id number] Information not available 03/07/2020 Which Illicit Or Recreational Drugs Have You Used? No [id number] Information not available 03/07/2020 Live Alone Or With Others? With Others Information not available 05/19/2018 Marital Status Informatio n not available 05/19/2018 What Was The Date Of Your Most Recent Tobacco Screening? 05/19/2018 [id number] Information not available 03/07/2020 How Many Children Do You Have? 2 [id number] Information not available 03/07/2020 How Much Tobacco Do You Smoke? No [id number] Information not available 03/07/2020 Sex: Unknown Functional Status Question Answer Note LastModified by Organizat ion Details LastModified Time What is your level of alcohol consumption? None [id number] Information not available 03/07/2020 Do you or have you ever used smokeless tobacco? 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 Never used electronic cigarettes [id number] Information not available 03/07/2020 What is your exercise level? None [id number] Information not available 03/07/2020 Mental Status None recorded. Family History Relationship Description Onset Age of this Age Resolved Age Notes LastModified by Organization Details LastModified Time Mother Heart disease [email or web address] Not available 2018 17:18:45 Mother Myocardial infarction [email or web address] Not available 05/19 17:18:58 Sister Diabetes mellitus [email or web address] Not available 2018 17:19:06 Sister Hypertensive disorder [email or web address] Not available 2018 17:19:13 Sister Hyperlipidem ia [email or web address] Not available 2018 17:19:24 Medical History Condition Response Coronary Artery Disease Y Diabetes Y Myocardial Infarction Y Hyperlipidemia Y Sleep Apnea Y Hypertension Y Gynecological HistoryNo gynecological history recorded. Obstetrics History GPAL:G 0 P 0 0 0 0 Past Encounters Encounter ID Performer Location Encounter Start Date Encounter Closed Date Diagnosis/Indication Diagnosis SNOMED-CT Code Diagnosis ICD10 Code Diagnosis IMO Codes Diagnosis Note [id number] Jimbo Savage MD [facility] [address] [place] [address] 05/19/2018 16:28:59 05/19/2018 17:59:07 Atypical chest pain 815257802 R07.89 Coronary arteriosclerosis in [place] artery 2792109036 107 I25.10 s/p CABGCardia c rehab Dyslipidemia 607219927 E 78.5 Needs to keep LDL less than 70, and HDL more than 40Will get fating lipids for follow up Type 2 priscilla betes mellitus without complication 001782070 E11.9 treatment and evaluation by primary care doctor [id number] Jimbo Savage MD [facility] [address] [place] [address] 04/06/2019 12:32:23 04/07/2019 17:40:16 Atypical chest pain 983713326 R07.89 Patient does complain of SOB with minium activity, chest tightness, Coronary arteriosclerosis in [place] artery 9169061916 107 I25.10 s/p CABG (03/2019)[facility] Dyslipidemia 937318841 E 78.5 Needs to keep LDL less than 70, and HDL more than 40Will get fating lipids for follow up Type 2 priscilla betes mellitus without complication 020353522 E11.9 treatment and evaluation by primary care doctor Dyspnea 490863386 R06.00 Patient does complain of SOB with minium activity, chest tightness, Obesity 828949591 E66.9 [id number] Jimbo Savage MD [facility] [place] [address] 06/01/2019 13:51:43 06/01/2019 22:25:51 Atypical chest pain 039784327 R07.89 Patient does complain of SOB with minium activity, chest tightness, Treadmill Myoview Stress test, has high [place] Risk score. Has Known CAD, or CAD risk equivalent . To look for any ischemia. Coronary arteriosclerosis in [place] artery 4683504561 107 I25.10 s/p CABG (03/2018)T readmill Myoview Stress test, has high [place] Risk score. Has Known CAD, or CAD risk equivalent . To look for any ischemia. Dyslipidemia 205115809 E 78.5 Needs to keep LDL less than 70, and HDL more than 40Will get fating lipids for follow up05/21/18 LDL 109change atorvastat in 40 mg to crestor 20 mg Type 2 priscilla betes mellitus without complication 041933442 E11.9 treatment and evaluation by primary care doctor Dyspnea 227735272 R06.00 Patient does complain of SOB with minium activity, chest tightness, Obesity 627076404 E66.9 Obstructiv e sleep apnea syndrome 40478944 G47.33 WIll give referral to Dr. Santizo for sleep study. [id number] Jimbo Savage MD [facility] [address] [place] [address] 12/28/2019 15:00:00 12/28/2019 18:44:29 Atypical chest pain 397577002 R07.89 Patient does complain of SOB with minium activity, chest tightness, had neg stress test had CT negative., Treadmill Myoview Stress test, negative Coronary arteriosclerosis in [place] artery 0398452921 107 I25.10 s/p CABG (03/2018)T readmill Myoview Stress test,negat willie echo 05/03/19 ECHO: LV chamber size is normal. LV wall thickness is mildly increased. The estimated left ventricle ejection fraction is 60-65%(nor mal). LV relaxation is impaired. There is no aortic regurgitat ion. There is no aortic valve stenosis. The mitral valve is structural ly normal. There is no mitral regurgitat ion. Dyslipidemia 306289878 E 78.5 Needs to keep LDL less than 70, and HDL more than 40Will get fating lipids for follow up05/21/18 LDL 109change atorvastat in 40 mg to crestor 20 mg shaila recheck lipids 1 year. Type 2 priscilla betes mellitus without complication 839444145 E11.9 treatment and evaluation by primary care doctor but pt and PCP do not really discuss titration of Lantus or anything in the manner that appears as if there is aggressive treatment ongoing. COORDNATE- DM trial DM educator Vanessa to help patient navigate this and pt to do acu checks 4 x daily for 5 days and to review. will adjust Lantus with subject. Activity to start walking 10 minutes daily and keep journal. Will f/u in 1-2 days. Dyspnea 137612240 R06.00 Patient does complain of SOB with minium activity, chest tightness, se above has appt 9-1-20 Obesity 731579766 E66.9 Activity increased walking 10 min daily and will help with diet and changes to healthy choices. Obstructiv e sleep apnea syndrome 03316458 G47.33 WIll give referral to Dr. Santizo for sleep study. needs sleep study and has CPAP [id number] Jimbo Savage MD [facility] [address] [place] [address] 01/04/2020 11:51:39 01/04/2020 13:47:08 Atypical chest pain 530542349 R07.89 01/04/2020Pa bernice does complain of SOB with minium activity. Educated on the need to increase activity. Coronary arteriosclerosis in [place] artery 7356219258 107 I25.10 01/04/2020My ocardial Perfusion Study 06/29/19:n egative stress test,erickson l LV systolic function, LVEF 66% .s/p CABG (03/2018) Dyslipidemia 576001116 E 78.5 01/04/2020Ja nuary 2019 LIPID 06/03/2019 CH 225 TR 661 HDL 35Unable to calculate LDL. Educated on need for diet and exercise, DM control. Continue Crestor 20.Needs to keep LDL less than 70, and HDL more than 40 Type 2 priscilla betes mellitus without complication [id number] E11.9 01/04/2020Po brian managed with recent ER visit glucose in the 700s per patient.Wi ll give the informatio n for Dr. Ash.tr eatment and evaluation by primary care doctor Dyspnea [id number] R06.00 01/04/2020Pa bernice continues to complain of SOB with minium activity. Educated to increase activity to improve strength. Obesity 406642885 E66.9 01/04/2020Ed ucate to increase walking. Utilizes walker when out at stores. Does not need it for getting around house, doctors appointmen ts, etc. Obstructiv e sleep apnea syndrome 02491545 G47.33 01/04/2020OS A dx through Dr. Hernández rts using CPap and that she is compliant. Peripheral vascular disease 384993799 I73.9 01/04/2020Ob tain JOSE [id number] Jimbo Savage MD [facility] [address] [place] [address] 02/27/2021 15:56:58 02/27/2021 16:57:52 Essential hypertension 71156441 I10 Hyperlipidemia 19604860 E78.5 Needs to keep LDL less than 70, and HDL more than 40Will get fasting lipids for follow up Obstructiv e sleep apnea syndrome 15591809 G47.33 01/04/2020OS A dx through Dr. Hernández rts using CPap and that she is compliant. Atypical chest pain 1025 31775 R07.89 Treadmill Myoview Stress test, has high [place] Risk score. Has Known CAD, or CAD risk equivalent . To look for any ischemia. Chronic di astolic heart failure 922730391 I50.32 [id number] Jimbo Savage MD [facility] [address] [place] [address] 04/24/2021 11:11:40 04/24/2021 13:03:57 Essential hypertension 59079851 I10 controlled today Hyperlipidemia 48591572 E78.5 Needs to keep LDL less than 70, and HDL more than 40 LDL 7110- 1Will get fasting lipids 1 year Needs to get back to structured exercise Obstructiv e sleep apnea syndrome 28453719 G47.33 01/04/2020OS A dx through Dr. Hernández rts using CPap and that she is compliant. Atypical chest pain 1025 99411 R07.89 Treadmill Myoview Stress test, has high [place] Risk score. Has Known CAD, or CAD risk equivalent . To look for any ischemia. Lexiscan: Lateral defect medium in size and moderate in severity non transmural . Positive stress test. Per Dr CHAIREZ this is not affecting the most important graft and patient would not need any further interventi on or procedure to assess positivity of test. No new changes max med treatment* Had ECHO done in 03/16/21 LV chamber size is normal. LV wall thickness is mildly increased. The estimated left ventricle ejection fraction is 50-55% (normal). LV relaxation is impaired. Left Atrium chamber is mildly dilated. There is mild calcificat ion of mitral valve posterior leaflet. There is trivial pulmonic regurgitat ion. Chronic di astolic heart failure 266477242 I50.32 *Had ECHO done in 03/16/21 LV chamber size is normal. LV wall thickness is mildly increased. The estimated left ventricle ejection fraction is 50-55% (normal). LV relaxation is impaired. Left Atrium chamber is mildly dilated. There is mild calcificat ion of mitral valve posterior leaflet. There is trivial pulmonic regurgitat ion. [id number] Jimbo Savage MD [facility] [address] [place] [address] 07/27/2021 09:25:06 07/27/2021 10:47:46 Essential hypertension 86987495 I10 controlled today Hyperlipidemia 89937243 E78.5 Needs to keep LDL less than 70, and HDL more than 40 LDL 7110 1Will get fasting lipids 1 year Needs to get back to structured exercise Obstructiv e sleep apnea syndrome 49030449 G47.33 01/04/2020OS A dx through Dr. Hernández rts using CPap and that she is compliant. Atypical chest pain 1025 66264 R07.89 Lexiscan: Lateral defect medium in size and moderate in severity non transmural . Positive stress test. *Had ECHO done in 03/16/21 LV chamber size is normal. LV wall thickness is mildly increased. The estimated left ventricle ejection fraction is 50-55% (normal). LV relaxation is impaired. Left Atrium chamber is mildly dilated. There is mild calcificat ion of mitral valve posterior leaflet. There is trivial pulmonic regurgitat ion. Chronic di astolic heart failure 746095448 I50.32 *Had ECHO done in 03/16/21 LV chamber size is normal. LV wall thickness is mildly increased. The estimated left ventricle ejection fraction is 50-55% (normal). LV relaxation is impaired. Left Atrium chamber is mildly dilated. There is mild calcificat ion of mitral valve posterior leaflet. There is trivial pulmonic regurgitat ion. Peripheral vascular disease 980773157 I73.9 01/04/2020Ob tain JOSE [id number] Jimbo Savage MD [facility] [place] [address] 07/04/2022 16:58:49 07/04/2022 17:46:35 Essential hypertension 20044236 I10 controlled today Hyperlipidemia 99936717 E78.5 Needs to keep LDL less than 70, and HDL more than 40 LDL 7110 1Will get fasting lipids 1 year Needs to get back to structured exercise Obstructiv e sleep apnea syndrome 83589139 G47.33 01/04/2020OS A dx through Dr. Hernández rts using CPap and that she is compliant. Atypical chest pain 1025 74433 R07.89 Treadmill Myoview Stress test, has high [place] Risk score. Has Known CAD, or CAD risk equivalent . To look for any ischemia. Chronic di astolic heart failure 871321059 I50.32 *Had ECHO done in 03/16/21 LV chamber size is normal. LV wall thickness is mildly increased. The estimated left ventricle ejection fraction is 50-55% (normal). LV relaxation is impaired. Left Atrium chamber is mildly dilated. There is mild calcificat ion of mitral valve posterior leaflet. There is trivial pulmonic regurgitat ion. Peripheral vascular disease 632532321 I73.9 01/04/2020Ob tain JOSE [id number] Jimbo Savage MD [facility] [address] [place] [address] 09/26/2022 16:37:07 09/26/2022 17:27:41 Essential hypertension 74861991 I10 controlled today Hyperlipidemia 52597723 E78.5 Needs to keep LDL less than 70, and HDL more than 40 LDL 71 1Will get fasting lipids 1 year Needs to get back to structured exercise Obstructiv e sleep apnea syndrome 78350639 G47.[address]ER[place] [address] through Dr[address] Hernández rts using CPap and that she is compliant. Atypical chest pain 1025 14887 R07.89 Treadmill Myoview Stress test positive with moderate ischemia, Maximal medical treatmentw ill consider cath when renal function is better Chronic di astolic heart failure 139606095 I50.32 *Had ECHO done in 03/16/21 LV chamber size is normal. LV wall thickness is mildly increased. The estimated left ventricle ejection fraction is 50-55% (normal). LV relaxation is impaired. Left Atrium chamber is mildly dilated. There is mild calcificat ion of mitral valve posterior leaflet. There is trivial pulmonic regurgitat ion. Peripheral vascular disease 510457011 I73.9 Will get arterial doppler, to evaluate severity of peripheral vascular disease [id number] Jimbo Savage MD [facility] [address] [place] [address] 03/11/2023 16:46:16 03/11/2023 17:16:57 Essential hypertension 82073257 I10 Blood pressure is elevated today, but this is only one reading, will keep close follow up, and consider medication change if blood pressure is still elevated next visit. Hyperlipidemia 12700796 E78.5 Needs to keep LDL less than 70, and HDL more than 40 LDL 7110 1Will get fasting lipids 1 year Needs to get back to structured exercise Obstructiv e sleep apnea syndrome 72046053 G47.33 [place] [address] through Dr. Betty rouse using CPap and that she is compliant. Chronic di astolic heart failure 814523900 I50.32 *Had ECHO done in 03/16/21 LV chamber size is normal. LV wall thickness is mildly increased. The estimated left ventricle ejection fraction is 50-55% (normal). LV relaxation is impaired. Left Atrium chamber is mildly dilated. There is mild calcificat ion of mitral valve posterior leaflet. There is trivial pulmonic regurgitat ion. Peripheral vascular disease 258969096 I73.9 Had Arterial doppler on 10/21/22 showed Severe peripheral arterial disease of the right lower extremity. Mild peripheral arterial disease of the left lower extremity. [id number] Jimbo Savage MD [facility] [place] [address] 09/16/2023 16:11:31 09/16/2023 17:06:57 Essential hypertension 95531264 I10 well controlled Hyperlipidemia 75910849 E78.5 Needs to keep LDL less than 70, and HDL more than 40 LDL 7110-202 1Will get fasting lipids 1 year Needs to get back to structured exercise Obstructiv e sleep apnea syndrome 45003442 G47.33 [place] [address] through Dr. Betty rouse using CPap and that she is compliant. Chronic di astolic heart failure 870763909 I50.32 fluid overloaded todaywill incrased her lasix to 40 mg BID daily for two week US, echocardio gram ECHO 10/07/22:L V chamber size is normal, LV wall thickness is moderately increased, LVEF 55-60%,LV relaxation is impaired,t he aortic valve is mildly calcified, there is mild tricupsid regurgitat ion,there is minimal pulmonic regurgitat ion. *Had ECHO done in 03/16/21 LV chamber size is normal. LV wall thickness is mildly increased. The estimated left ventricle ejection fraction is 50-55% (normal). LV relaxation is impaired. Left Atrium chamber is mildly dilated. There is mild calcificat ion of mitral valve posterior leaflet. There is trivial pulmonic regurgitat ion. Peripheral vascular disease 115671844 I73.9 Had Arterial doppler on 10/21/22 showed Severe peripheral arterial disease of the right lower extremity. Mild peripheral arterial disease of the left lower extremity. Atypical chest pain 1025 67642 R07.89 Treadmill Myoview Stress test positive with moderate ischemia, Maximal medical treatmentw ill consider cath when renal function is better Edema of l ower extremity 241307117 R60.0 will increased her lasix to 40 mg BID daily [id number] Jimbo Savage MD [facility] [address] [place] [address] 09/30/2023 15:42:03 09/30/2023 16:21:04 Essential hypertension 25595209 I10 well controlled Hyperlipidemia 42860364 E78.5 Needs to keep LDL less than 70, and HDL more than 40 LDL 7110--202 1Will get fasting lipids 1 year Needs to get back to structured exercise Obstructiv e sleep apnea syndrome 77734236 G47.33 [place]ER[place] dx through Dr. Hernández rts using CPap and that she is compliant. Chronic di astolic heart failure 926329318 I50.32 fluid overload is improvingc ontinue with lasix 40 mg BID daily US, echocardio gram ECHO 10/07/22:L V chamber size is normal, LV wall thickness is moderately increased, LVEF 55-60%,LV relaxation is impaired,t he aortic valve is mildly calcified, there is mild tricupsid regurgitat ion,there is minimal pulmonic regurgitat ion. *Had ECHO done in 03/16/21 LV chamber size is normal. LV wall thickness is mildly increased. The estimated left ventricle ejection fraction is 50-55% (normal). LV relaxation is impaired. Left Atrium chamber is mildly dilated. There is mild calcificat ion of mitral valve posterior leaflet. There is trivial pulmonic regurgitat ion. Peripheral vascular disease 300690858 I73.9 Had Arterial doppler on 10/21/22 showed Severe peripheral arterial disease of the right lower extremity. Mild peripheral arterial disease of the left lower extremity. Atypical chest pain 1025 18662 R07.89 Treadmill Myoview Stress test positive with moderate ischemia, Maximal medical treatmentw ill consider cath when renal function is better Edema of l ower extremity 270298430 R60.0 continue with lasix 40 mg BID daily [id number] Jimbo Savage MD [facility] [address] [place] [address] 12/02/2023 15:50:39 12/02/2023 16:24:57 Essential hypertension 87212039 I10 well controlled Hyperlipidemia 84528906 E78.5 Needs to keep LDL less than 70, and HDL more than 40 LDL 1Will get fasting lipids 1 year Needs to get back to structured exercise Obstructiv e sleep apnea syndrome 93804236 G47.33 [place]ERA dx through Dr. Hernández rts using CPap and that she is compliant. Chronic di astolic heart failure 403150676 I50.32 fluid overload is improvingc ontinue with lasix 40 mg BID daily US, echocardio gram ECHO 10/07/22:L V chamber size is normal, LV wall thickness is moderately increased, LVEF 55-60%,LV relaxation is impaired,t he aortic valve is mildly calcified, there is mild tricuspid regurgitat ion,there is minimal pulmonic regurgitat ion. *Had ECHO done in 03/16/21 LV chamber size is normal. LV wall thickness is mildly increased. The estimated left ventricle ejection fraction is 50-55% (normal). LV relaxation is impaired. Left Atrium chamber is mildly dilated. There is mild calcificat ion of mitral valve posterior leaflet. There is trivial pulmonic regurgitat ion. Peripheral vascular disease 845429042 I73.9 Had Arterial doppler on 10/21/22 showed Severe peripheral arterial disease of the right lower extremity. Mild peripheral arterial disease of the left lower extremity. Atypical chest pain 1025 54729 R07.89 Treadmill Myoview Stress test positive with moderate ischemia, Maximal medical treatmentw ill consider cath when renal function is better Edema of l ower extremity 750204352 R60.0 continue with lasix 40 mg BID daily [id number] Jimbo Savage MD [facility] [address] [place] [address] 06/08/2024 09:35:26 06/08/2024 10:23:28 Essential hypertension 60337809 I10 well controlled Hyperlipidemia 94530406 E78.5 Needs to keep LDL less than 70, and HDL more than 40 Needs to get back to structured exercise Obstructiv e sleep apnea syndrome 54474397 G47.33 [place]ER[place] dx through Dr. Hernández rts using CPap and that she is compliant. Chronic di astolic heart failure 468058661 I50.32 fluid overload is improvingc ontinue with lasix 40 mg BID daily US, echocardio gram ECHO 10/07/22:L V chamber size is normal, LV wall thickness is moderately increased, LVEF 55-60%,LV relaxation is impaired,t he aortic valve is mildly calcified, there is mild tricuspid regurgitat ion,there is minimal pulmonic regurgitat ion. *Had ECHO done in 03/16/21 LV chamber size is normal. LV wall thickness is mildly increased. The estimated left ventricle ejection fraction is 50-55% (normal). LV relaxation is impaired. Left Atrium chamber is mildly dilated. There is mild calcificat ion of mitral valve posterior leaflet. There is trivial pulmonic regurgitat ion. Peripheral vascular disease 654425103 I73.9 Had Arterial doppler on 10/21/22 showed Severe peripheral arterial disease of the right lower extremity. Mild peripheral arterial disease of the left lower extremity. Atypical chest pain 1025 96997 R07.89 Treadmill Myoview Stress test positive with moderate ischemia, Maximal medical treatmentw ill consider cath when renal function is better Edema of l ower extremity 859439158 R60.0 Better, continue with lasix 40 mg BID daily [id number] Jimbo Savage MD [facility] [address] [place] [address] 08/31/2024 17:23:36 08/31/2024 17:57:25 Essential hypertension 01748900 I10 well controlled Hyperlipidemia 56141318 E78.5 Needs to keep LDL less than 70, and HDL more than 40 Needs to get back to structured exercise Obstructiv e sleep apnea syndrome 29861822 G47.33 [place]ER[place] dx through Dr. Hernández rts using CPap and that she is compliant. Chronic di astolic heart failure 766271628 I50.32 fluid overload is improvingc ontinue with lasix 40 mg BID daily US, echocardio gram ECHO 10/07/22:L V chamber size is normal, LV wall thickness is moderately increased, LVEF 55-60%,LV relaxation is impaired,t he aortic valve is mildly calcified, there is mild tricuspid regurgitat ion,there is minimal pulmonic regurgitat ion. *Had ECHO done in 03/16/21 LV chamber size is normal. LV wall thickness is mildly increased. The estimated left ventricle ejection fraction is 50-55% (normal). LV relaxation is impaired. Left Atrium chamber is mildly dilated. There is mild calcificat ion of mitral valve posterior leaflet. There is trivial pulmonic regurgitat ion. Peripheral vascular disease 123690520 I73.9 Had Arterial doppler on 10/21/22 showed Severe peripheral arterial disease of the right lower extremity. Mild peripheral arterial disease of the left lower extremity. Atypical chest pain 1025 63109 R07.89 Had Positive Lexiscan stress test on 08/21/24 with Reversible defect small in size consistent with ischemia in anterior area. Normal LV systolic function. LVEF: 59%.Had CRF, will need Nephrology FU for clearance for cath Edema of l ower extremity 634311752 R60.0 Better, continue with lasix 40 mg BID daily [id number] Jimbo Savage MD [facility] [place] [address] 10/19/2024 17:15:21 10/19/2024 17:47:26 Essential hypertension 94007618 I10 well controlled Hyperlipidemia 05397726 E78.5 Needs to keep LDL less than 70, and HDL more than 40 Needs to get back to structured exercise Obstructiv e sleep apnea syndrome 19748571 G47.33 [place]ER[place] dx through Dr. Hernández rts using CPap and that she is compliant. Chronic di astolic heart failure 564024612 I50.32 fluid overload is improvingc ontinue with lasix 40 mg BID daily US, echocardio gram ECHO 10/07/22:L V chamber size is normal, LV wall thickness is moderately increased, LVEF 55-60%,LV relaxation is impaired,t he aortic valve is mildly calcified, there is mild tricuspid regurgitat ion,there is minimal pulmonic regurgitat ion. *Had ECHO done in 03/16/21 LV chamber size is normal. LV wall thickness is mildly increased. The estimated left ventricle ejection fraction is 50-55% (normal). LV relaxation is impaired. Left Atrium chamber is mildly dilated. There is mild calcificat ion of mitral valve posterior leaflet. There is trivial pulmonic regurgitat ion. Peripheral vascular disease 451639578 I73.9 Will get arterial doppler, to evaluate severity of peripheral vascular disease Edema of l ower extremity 628469940 R60.0 Better, continue with lasix 40 mg BID daily Health Concerns Section Related Observation LastModified by Organization Detai ls LastModified Time None Recorded Concern Status LastModified by Organization Details LastModified Time None Recorded Advance Directives Directive None Recorded Payers Insurance Date Sequence Insurance Name Policy Number Policy Roman Covered Member ID Roman Member ID Guarantor Name 06/08/2024 1 [facility] [id number] Sheldon Whitt [id number] Lynn Whitt 12/02/2023 3 [place] [facility] Lynn Nohemijennifer [id number] Lynn Peri 12/02/2023 1 [facility] [id number] Lynn Steven [id number] Lynn Peri 12/02/2023 1 [facility] - DOS PRIOR TO 20 (HMO) Lynn Steven [id number] Lynn Peri 12/02/2023 1 [facility] - DOS ON OR AFTER 20 (MEDICAID REPLACEMENT - HMO) Lynn Steven ([employer]) [id number] Lynn Peri 10/23/2024 1 [facility] (MEDICARE REPLACEMENT HMO) [id number] Lynn Monahan Peri [id number] Lynn Whitt Notes Date Note Type Note Provider Name and Address Organization Details Recorded Time 09/30/2023 text/html 09/30/23CC : Cardiac follow up dyspnea on [id number] years-old Female with CAD s/p NSTEMI and CABG x2 (04/01/18), HTN, HLD, DM, Tobacco Dependence (quit 03/2018),and CKD, is here for 2 week cardiac follow up. She was last seen in the clinic on 09/16/23, since then she still have swelling of the lower leg but it is improving. Her cr is 1.8.She denies ER visits and hospitalizations since she was last seen. Today reports:Denies chest pain.Denies shortness of breath at rest. Has mild dyspnea on exertion.No orthopnea. No PNDs.Denies heart palpitations.Denies dizziness. Denies syncope or near syncope.Yes ankle or leg edema.No major bleeding events.No reported side effects from medications. Taking medications as prescribed with no missed doses.Denies snoring, daytime somnolence and AM headache.*Last LDL was 55 done on 07/01/23.Pt takes rosuvastatin 20 mg. Previously:She had Arterial doppler on 10/21/22 showed Severe peripheral arterial disease of the right lower extremity. Mild peripheral arterial disease of the left lower extremity. *Had Arterial doppler on 10/21/22 showed Severe peripheral arterial disease of the right lower extremity. Mild peripheral arterial disease of the left lower extremity. *Had ECHO on 10/07/22 showed LV chamber size is normal, LV wall thickness is moderately increased,LVEF 55-60%,LV relaxation is impaired,the aortic valve is mildly calcified,there is mild tricuspid regurgitation,there is minimal pulmonic regurgitation. She has occasional chest tightness *Had negative myocardial perfusion study done in 08/02/19 with normal LV systolic function, EF 66% . *She underwent cath which showed three vessel CAD with very tight large diagonal branch and significant disease of the LAD. She was transferred from [place] to [facility] where she was consulted by Dr. Arrington and had CABG X2 with GARCIA to mid LAD, and reversed saphenous vein graft from aorta to D1.Results from this visit, or from the past:CMP 06/03/2019 NA 135 K 5.1 CH 100 CO2 23 GL 493 BUN 25 CR 1.32 ALK PH 105 ALT 20 AST 27 CA 9.7LIPID 06/03/2019 CH 225 TR 661 HDL %A1C HEMOGLOBIN 11.: FACTOR XA HEPARIN 1.01EKG, 04/06/19: sinus tach; mu03/27/18 EKG- Sinus rhythm. ST-T wave abnormality- consider lateral ischemia. Abnormal EKG.Echo 05/03/2019 LV chamber size is normal. LV wall thickness is mildly increased. The estimated LVEF is 60-65% (normal). LV relaxation is impaired. There is no * Myocardial Perfusion Study 06/29/19:negative stress test,normal LV systolic function, LVEF 66% .04/16/18 CTA: No pulmonary embolus. Sensitivity is mildly decreased by motion artifact. Moderate-sized left pleural effusion. Small pericardial effusion. Results from this visit, or from the past:CMP 06/03/2019 NA 135 K 5.1 CH 100 CO2 23 GL 493 BUN 25 CR 1.32 ALK PH 105 ALT 20 AST 27 CA 9.7LIPID 06/03/2019 CH 225 TR 661 HDL %A1C HEMOGLOBIN 11.8118: FACTOR XA HEPARIN 1.01EKG, 04/06/19: sinus tach; mu03/27/18 EKG- Sinus rhythm. ST-T wave abnormality- consider lateral ischemia. Abnormal EKG.Echo 05/03/2019 LV chamber size is normal. LV wall thickness is mildly increased. The estimated LVEF is 60-65% (normal). LV relaxation is impaired. There is no 0 05/28/18 ECHO: LV chamber size is normal. There is borderline LV hypertrophy. There is normal global systolic function and contractility. The estimated left M yocardial Perfusion Study 06/29/19:negative stress test,normal LV systolic function, LVEF 66% .04/16/18 CTA: No pulmonary embolus. Sensitivity is mildly decreased by motion artifact. Moderate-sized left pleural effusion. Small pericardial effusion. [facility] 09/30/2023 16:16:23 12/02/2023 text/html 12/02/23CC : Cardiac follow up62 years-old Female with CAD s/p NSTEMI and CABG x2 (04/01/18), HTN, HLD, DM, Tobacco Dependence (quit 03/2018),and CKD, is here for 2 month cardiac follow up. She was last seen in the clinic on 09/30/23, since then she is doing fair, had gained few poundsShe denies ER visits and hospitalizations since she was last seen. Today reports:Denies chest pain.Denies shortness of breath at rest. Has mild dyspnea on exertion.No orthopnea. No PNDs.Denies heart palpitations.Denies dizziness. Denies syncope or near syncope.No ankle or leg edema.No major bleeding events.No reported side effects from medications. Taking medications as prescribed with no missed doses.Denies snoring, daytime somnolence and AM headache.*Last LDL was 53 done on 09/24/23.Pt takes rosuvastatin 20 mg. Previously: She still have swelling of the lower leg but it is improving. Her cr is 1.8. She had Arterial doppler on 10/21/22 showed Severe peripheral arterial disease of the right lower extremity. Mild peripheral arterial disease of the left lower extremity. *Had Arterial doppler on 10/21/22 showed Severe peripheral arterial disease of the right lower extremity. Mild peripheral arterial disease of the left lower extremity. *Had ECHO on 10/07/22 showed LV chamber size is normal, LV wall thickness is moderately increased,LVEF 55-60%,LV relaxation is impaired,the aortic valve is mildly calcified,there is mild tricuspid regurgitation,there is minimal pulmonic regurgitation. She has occasional chest tightness *Had negative myocardial perfusion study done in 08/02/19 with normal LV systolic function, EF 66% . *She underwent cath which showed three vessel CAD with very tight large diagonal branch and significant disease of the LAD. She was transferred from [place] to [facility] where she was consulted by Dr. Arrington and had CABG X2 with GARCIA to mid LAD, and reversed saphenous vein graft from aorta to D1.Results from this visit, or from the past:CMP 06/03/2019 NA 135 K 5.1 CH 100 CO2 23 GL 493 BUN 25 CR 1.32 ALK PH 105 ALT 20 AST 27 CA 9.7LIPID 06/03/2019 CH 225 TR 661 HDL %A1C HEMOGLOBIN 11.: FACTOR XA HEPARIN 1.01EKG, 04/06/19: sinus tach; mu03/27/18 EKG- Sinus rhythm. ST-T wave abnormality- consider lateral ischemia. Abnormal EKG.Echo 05/03/2019 LV chamber size is normal. LV wall thickness is mildly increased. The estimated LVEF is 60-65% (normal). LV relaxation is impaired. There is no * Myocardial Perfusion Study 06/29/19:negative stress test,normal LV systolic function, LVEF 66% .04/16/18 CTA: No pulmonary embolus. Sensitivity is mildly decreased by motion artifact. Moderate-sized left pleural effusion. Small pericardial effusion. Results from this visit, or from the past:CMP 06/03/2019 NA 135 K 5.1 CH 100 CO2 23 GL 493 BUN 25 CR 1.32 ALK PH 105 ALT 20 AST 27 CA 9.7LIPID 06/03/2019 CH 225 TR 661 HDL %A1C HEMOGLOBIN 11.8118: FACTOR XA HEPARIN 1.01EKG, 04/06/19: sinus tach; mu03/27/18 EKG- Sinus rhythm. ST-T wave abnormality- consider lateral ischemia. Abnormal EKG.Echo 05/03/2019 LV chamber size is normal. LV wall thickness is mildly increased. The estimated LVEF is 60-65% (normal). LV relaxation is impaired. There is no 0 05/28/18 ECHO: LV chamber size is normal. There is borderline LV hypertrophy. There is normal global systolic function and contractility. The estimated left M yocardial Perfusion Study 06/29/19:negative stress test,normal LV systolic function, LVEF 66% .04/16/18 CTA: No pulmonary embolus. Sensitivity is mildly decreased by motion artifact. Moderate-sized left pleural effusion. Small pericardial effusion. Jimbo Savage MD [address] [place], [address], [facility] 12/02/2023 17:01:27 06/08/2024 text/html 06/08/24CC : Cardiac follow up , chest pain63 years-old Female with CAD s/p NSTEMI and CABG x2 (04/01/18), Hypertension, Hyperlipidemia , Diabetes mellitus , Tobacco Dependence (quit 03/2018),and CKD, is here for 6 month cardiac follow up. She was last seen in the clinic on 12/02/23, since then she is doing well Today reports:no ccHas chest pain. with tightnessDenies shortness of breath at rest. Has mild dyspnea on exertion.No orthopnea. No PNDs.Denies heart palpitations.Denies dizziness. Denies syncope or near syncope.No ankle or leg edema.No major bleeding events.No reported side effects from medications. Taking medications as prescribed with no missed doses.Denies snoring, daytime somnolence and AM headache.*Last LDL was 44 done on 12/22/23.Pt takes rosuvastatin 20 mg. 12/17/23:Na 137,k 4.9,Cl 103,Co2 27,GLU 372,BUN 33,Cr 1.89,AST 15,ALT 18,TSH 2.5500712/22/23:TC 152,TG 357,HDL 37,LDL 44. * XR CHEST PA+LAT DATE: 12/11/2023:Mild infiltrate and subsegmental atelectasis is versus scarring in the left lower lung. Previously:She still have swelling of the lower leg but it is improving. Her cr is 1.8. She had Arterial doppler on 10/21/22 showed Severe peripheral arterial disease of the right lower extremity. Mild peripheral arterial disease of the left lower extremity. *Had Arterial doppler on 10/21/22 showed Severe peripheral arterial disease of the right lower extremity. Mild peripheral arterial disease of the left lower extremity. *Had ECHO on 10/07/22 showed LV chamber size is normal, LV wall thickness is moderately increased,LVEF 55-60%,LV relaxation is impaired,the aortic valve is mildly calcified,there is mild tricuspid regurgitation,there is minimal pulmonic regurgitation. She has occasional chest tightness *Had negative myocardial perfusion study done in 08/02/19 with normal LV systolic function, EF 66% . *She underwent cath which showed three vessel CAD with very tight large diagonal branch and significant disease of the LAD. She was transferred from [place] to [facility] where she was consulted by Dr. Arrington and had CABG X2 with GARCIA to mid LAD, and reversed saphenous vein graft from aorta to D1.Results from this visit, or from the past:CMP 06/03/2019 NA 135 K 5.1 CH 100 CO2 23 GL 493 BUN 25 CR 1.32 ALK PH 105 ALT 20 AST 27 CA 9.7LIPID 06/03/2019 CH 225 TR 661 HDL %A1C HEMOGLOBIN 11.: FACTOR XA HEPARIN 1.01EKG, 04/06/19: sinus tach; mu03/27/18 EKG- Sinus rhythm. ST-T wave abnormality- consider lateral ischemia. Abnormal EKG.Echo 05/03/2019 LV chamber size is normal. LV wall thickness is mildly increased. The estimated LVEF is 60-65% (normal). LV relaxation is impaired. There is no * Myocardial Perfusion Study 06/29/19:negative stress test,normal LV systolic function, LVEF 66% .04/16/18 CTA: No pulmonary embolus. Sensitivity is mildly decreased by motion artifact. Moderate-sized left pleural effusion. Small pericardial effusion. Results from this visit, or from the past:CMP 06/03/2019 NA 135 K 5.1 CH 100 CO2 23 GL 493 BUN 25 CR 1.32 ALK PH 105 ALT 20 AST 27 CA 9.7LIPID 06/03/2019 CH 225 TR 661 HDL %A1C HEMOGLOBIN 11.8105/30/17: FACTOR XA HEPARIN 1.01EKG, 04/06/19: sinus tach; mu03/27/18 EKG- Sinus rhythm. ST-T wave abnormality- consider lateral ischemia. Abnormal EKG.Echo 05/03/2019 LV chamber size is normal. LV wall thickness is mildly increased. The estimated LVEF is 60-65% (normal). LV relaxation is impaired. There is no 0 05/28/18 ECHO: LV chamber size is normal. There is borderline LV hypertrophy. There is normal global systolic function and contractility. The estimated left M yocardial Perfusion Study 06/29/19:negative stress test,normal LV systolic function, LVEF 66% .04/16/18 CTA: No pulmonary embolus. Sensitivity is mildly decreased by motion artifact. Moderate-sized left pleural effusion. Small pericardial effusion. Jimbo Savage MD [address] [place], [address], [facility] 06/08/2024 10:20:05 08/31/2024 text/html 08/31/24CC : Cardiac follow up63 years-old Female with CAD s/p NSTEMI and CABG x2 (04/01/18), Hypertension, Hyperlipidemia , Diabetes mellitus , Tobacco Dependence (quit 03/2018),and CKD, is here for 6 month cardiac follow up with stress test results. She was last seen in the clinic on 06/08/24, since then she had Positive Lexiscan stress test on 08/21/24 with Reversible defect small in size consistent with ischemia in anterior area. Normal LV systolic function. LVEF: 59%.She denies ER visits and hospitalizations since she was last seen. Today reports:Denies chest pain.Denies shortness of breath at rest. Has mild dyspnea on exertion.No orthopnea. No PNDs.Denies heart palpitations.Denies dizziness. Denies syncope or near syncope.No ankle or leg edema.No major bleeding events.No reported side effects from medications. Taking medications as prescribed with no missed doses.Denies snoring, daytime somnolence and AM headache.*Last LDL was 44 done on 12/22/23.Pt takes rosuvastatin 20 mg. *Had Positive Lexiscan stress test on 08/21/24 with Reversible defect small in size consistent with ischemia in anterior area. Normal LV systolic function. LVEF: 59%. Previously:* XR CHEST PA+LAT DATE: 12/11/2023:Mild infiltrate and subsegmental atelectasis is versus scarring in the left lower lung. She still have swelling of the lower leg but it is improving. Her cr is 1.8. She had Arterial doppler on 10/21/22 showed Severe peripheral arterial disease of the right lower extremity. Mild peripheral arterial disease of the left lower extremity. *Had Arterial doppler on 10/21/22 showed Severe peripheral arterial disease of the right lower extremity. Mild peripheral arterial disease of the left lower extremity. *Had ECHO on 10/07/22 showed LV chamber size is normal, LV wall thickness is moderately increased,LVEF 55-60%,LV relaxation is impaired,the aortic valve is mildly calcified,there is mild tricuspid regurgitation,there is minimal pulmonic regurgitation. She has occasional chest tightness *Had negative myocardial perfusion study done in 08/02/19 with normal LV systolic function, EF 66% . *She underwent cath which showed three vessel CAD with very tight large diagonal branch and significant disease of the LAD. She was transferred from [place] to [facility] where she was consulted by Dr. Arrington and had CABG X2 with GARCIA to mid LAD, and reversed saphenous vein graft from aorta to D1.Results from this visit, or from the past:CMP 06/03/2019 NA 135 K 5.1 CH 100 CO2 23 GL 493 BUN 25 CR 1.32 ALK PH 105 ALT 20 AST 27 CA 9.7LIPID 06/03/2019 CH 225 TR 661 HDL %A1C HEMOGLOBIN 11.: FACTOR XA HEPARIN 1.01EKG, 04/06/19: sinus tach; mu03/27/18 EKG- Sinus rhythm. ST-T wave abnormality- consider lateral ischemia. Abnormal EKG.Echo 05/03/2019 LV chamber size is normal. LV wall thickness is mildly increased. The estimated LVEF is 60-65% (normal). LV relaxation is impaired. There is no * Myocardial Perfusion Study 06/29/19:negative stress test,normal LV systolic function, LVEF 66% .04/16/18 CTA: No pulmonary embolus. Sensitivity is mildly decreased by motion artifact. Moderate-sized left pleural effusion. Small pericardial effusion. Results from this visit, or from the past:CMP 06/03/2019 NA 135 K 5.1 CH 100 CO2 23 GL 493 BUN 25 CR 1.32 ALK PH 105 ALT 20 AST 27 CA 9.7LIPID 06/03/2019 CH 225 TR 661 HDL %A1C HEMOGLOBIN 11.811/26/18: FACTOR XA HEPARIN 1.01EKG, 04/06/19: sinus tach; mu03/27/18 EKG- Sinus rhythm. ST-T wave abnormality- consider lateral ischemia. Abnormal EKG.Echo 05/03/2019 LV chamber size is normal. LV wall thickness is mildly increased. The estimated LVEF is 60-65% (normal). LV relaxation is impaired. There is no 0 05/28/18 ECHO: LV chamber size is normal. There is borderline LV hypertrophy. There is normal global systolic function and contractility. The estimated left M yocardial Perfusion Study 06/29/19:negative stress test,normal LV systolic function, LVEF 66% .04/16/18 CTA: No pulmonary embolus. Sensitivity is mildly decreased by motion artifact. Moderate-sized left pleural effusion. Small pericardial effusion. Jimbo Savage MD [address] [place], [address], [facility] 08/31/2024 17:53:11 10/19/2024 text/html 10/19/24CC : Cardiac follow up, dyspnea on [id number] years-old Female with CAD s/p NSTEMI and CABG x2 (04/01/18), Hypertension, Hyperlipidemia , Diabetes mellitus , Tobacco Dependence (quit 03/2018),and CKD, is here for 2 month cardiac follow up. She was last seen in the clinic on 08/31/24, since then she is doing wellDenies chest pain.Denies shortness of breath at rest. Has mild dyspnea on exertion.No orthopnea. No PNDs.Denies heart palpitations.Denies dizziness. Denies syncope or near syncope.No ankle or leg edema.No major bleeding events.No reported side effects from medications. Taking medications as prescribed with no missed doses.Denies snoring, daytime somnolence and AM headache.*Last LDL was 44 done on 12/22/23.Pt takes rosuvastatin 20 mg.Previously:*Had Positive Lexiscan stress test on 08/21/24 with Reversible defect small in size consistent with ischemia in anterior area. Normal LV systolic function. LVEF: 59%. * XR CHEST PA+LAT DATE: 12/11/2023:Mild infiltrate and subsegmental atelectasis is versus scarring in the left lower lung. *She had Arterial doppler on 10/21/22 showed Severe peripheral arterial disease of the right lower extremity. Mild peripheral arterial disease of the left lower extremity. *Had ECHO on 10/07/22 showed LV chamber size is normal, LV wall thickness is moderately increased,LVEF 55-60%,LV relaxation is impaired,the aortic valve is mildly calcified,there is mild tricuspid regurgitation,there is minimal pulmonic regurgitation. She has occasional chest tightness *Had negative myocardial perfusion study done in 08/02/19 with normal LV systolic function, EF 66% . *She underwent cath which showed three vessel CAD with very tight large diagonal branch and significant disease of the LAD. She was transferred from [place] to [facility] where she was consulted by Dr. Arrington and had CABG X2 with GARCIA to mid LAD, and reversed saphenous vein graft from aorta to D1.Results from this visit, or from the past:CMP 06/03/2019 NA 135 K 5.1 CH 100 CO2 23 GL 493 BUN 25 CR 1.32 ALK PH 105 ALT 20 AST 27 CA 9.7LIPID 06/03/2019 CH 225 TR 661 HDL %A1C HEMOGLOBIN 11.: FACTOR XA HEPARIN 1.01EKG, 04/06/19: sinus tach; mu03/27/18 EKG- Sinus rhythm. ST-T wave abnormality- consider lateral ischemia. Abnormal EKG.Echo 05/03/2019 LV chamber size is normal. LV wall thickness is mildly increased. The estimated LVEF is 60-65% (normal). LV relaxation is impaired. There is no * Myocardial Perfusion Study 06/29/19:negative stress test,normal LV systolic function, LVEF 66% .04/16/18 CTA: No pulmonary embolus. Sensitivity is mildly decreased by motion artifact. Moderate-sized left pleural effusion. Small pericardial effusion. Results from this visit, or from the past:CMP 06/03/2019 NA 135 K 5.1 CH 100 CO2 23 GL 493 BUN 25 CR 1.32 ALK PH 105 ALT 20 AST 27 CA 9.7LIPID 06/03/2019 CH 225 TR 661 HDL %A1C HEMOGLOBIN 11.8105/30/17: FACTOR XA HEPARIN 1.01EKG, 04/06/19: sinus tach; mu03/27/18 EKG- Sinus rhythm. ST-T wave abnormality- consider lateral ischemia. Abnormal EKG.Echo 05/03/2019 LV chamber size is normal. LV wall thickness is mildly increased. The estimated LVEF is 60-65% (normal). LV relaxation is impaired. There is no 0 05/28/18 ECHO: LV chamber size is normal. There is borderline LV hypertrophy. There is normal global systolic function and contractility. The estimated left M yocardial Perfusion Study 06/29/19:negative stress test,normal LV systolic function, LVEF 66% .04/16/18 CTA: No pulmonary embolus. Sensitivity is mildly decreased by motion artifact. Moderate-sized left pleural effusion. Small pericardial effusion. Jimbo Savage MD [address] [place], [address], [facility] 10/19/2024 17:43:51 OBGyn Episode No OBEpisode recorded.
--- OUTSIDE RECORDS SUMMARY | 2025-03-29 16:53 | XMS_ITS | Clinical Summary ---
Author Organization 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 Active aspirin EC 81 MG tablet Take 1 tablet (81 mg total) by mouth daily. Active DULoxetine 30 MG capsule Take 1 capsule (30 mg total) by mouth daily. 09/12/19 21 Active gabapentin 300 MG capsule Take 1-2 capsules (300-600 mg total) by mouth 2 (two) times a day. 1 capsule in AM and 2 capsules in PM 10/13/19 21 Active albuterol sulfate HFA 108 (90 Base) MCG/ACT inhaler Inhale 2 puffs into the lungs every 6 (six) hours as needed for Wheezing. 6 g 09/06/19 22 Active FARXIGA 10 MG Tab Take 1 tablet (10 mg total) by mouth daily. 10/09/19 22 Active furosemide 20 MG tablet Take 2 tablets (40 mg total) by mouth daily. 05/19/19 22 Active HUMULIN R U-500 KWIKPEN 500 UNIT/ML injection Inject 0.08-0.18 mLs (40-90 Units total) into the skin see administration instructions. Patient takes 90 units before breakfast, 55 before lunch, and 40 before dinner 05/22/20 22 Active isosorbide mononitrate ER 30 MG 24 hr tablet Take 1 tablet (30 mg total) by mouth daily. 10/01/19 Active rosuvastatin 20 MG tablet Take 1 tablet (20 mg total) by mouth daily. 07/16/19 Active progesterone 100 MG capsule Take 1 capsule (100 mg total) by mouth daily. 06/19/19 Active SPIRIVA RESPIMAT 2.5 MCG/ACT inhaler (SPIRIVA RESPIMAT) Inhale 2 puffs into the lungs daily. Patient takes 2 puffs in AM 04/24/20 Active linaCLOtide (LINZESS) 72 MCG capsule Take 1 capsule (72 mcg total) by mouth every morning before breakfast. Take on empty stomach at least 30 minutes prior to first meal of the day. Swallow whole. Do not open capsule or chew. Active tirzepatide (MOUNJARO) 2.5 MG/0.5ML injection Inject 2.5 mg into the skin every 7 days. On Fridays Active vitamin D2, ergocalciferol, (DRISDOL) 1.25 mg capsule Take 1 capsule (1.25 mg total) by mouth every 7 days. On Fridays Active traMADol (ULTRAM) 50 MG tabletIndicatio ns:Acute Pain < 7 Day Supply Take 1 tablet (50 mg total) by mouth every 6 (six) hours as needed for Pain. Indications: Acute Pain < 7 Day Supply 10 tablet 12/22/19 24 Active naproxen (NAPROSYN) 500 MG tablet Take 1 tablet (500 mg total) by mouth 2 (two) times daily with meals. 60 tablet 08/15/19 25 Active tiZANidine (ZANAFLEX) 4 MG tablet Take 1 tablet (4 mg total) by mouth every 8 (eight) hours as needed. 12 tablet 08/15/19 25 Active lidocaine 4 % patch Place 1 patch onto the skin daily. Remove & Discard patch within 12 hours or as directed by MD 30 patch 08/15/19 Active Active Problems Problem Noted Date Diagnosed Date Cellulitis and abscess of lower extremity 2023 Sepsis 06/19/2023 Cellulitis 01/28/2023 Adhesive capsulitis of shoulder 11/08/2020 Incomplete tear of rotator cuff 11/08/2020 Labial abscess 11/07/2020 Centrilobular emphysema 11/11/2019 Obstructive sleep apnea 11/11/2019 Restrictive lung disease 11/11/2019 Cigarette nicotine dependence in remission 07/12 Sleep disorder 07/13/2019 S/P CABG x 6 07/13/2019 Shortness of breath 07/13/2019 Chronic kidney disease, stage 3 unspecified 12/2018 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, or unspecified(403.00) 12/10/2018 Uncontrolled type 2 diabetes mellitus with compl ication 12/10/2018 Encounters Date Type Department Care Team Description 02/23/2025 12:06 PM CDT - 02/23/2025 11:59 PM CDT Hospital Encounter [facility] [place] [address] Amisha Coronado APNP Discharge Disposition: Home or Self Care (Routine Discharge) 02/23/2025 Orders Only [facility] [place] [address] Amisha Coronado APNP 02/23/2025 Travel from Last 3 Months Immunizations Immunization Administration Dates Next Due Fluzone 6 Months+ Quad (0.5 mL Prefilled Syringe ) 02/01/2023 Tdap (Boostrix) 12/21/2023 Family History Medical History Relation Comments Breast Cancer Paternal Aunt Relation Status Comments Paternal Aunt Social History Tobacco Use Types Packs/Day Years Used Date Smoking Tobacco: Former Cigarettes Q uit: 2018 Smokeless Tobacco: Never Tobacco Cessation:Counseling Given: No Comments:former Alcohol Use Standard Drinks/Week Comments No 0 (1 standard drink = 0.6 oz pur e alcohol) [facility] Utilities Answer Date Recorded In the past 12 months has e [employer], gas, oil, or water company threatened to shut off services in your home? No 12/21/2023 Humiliation, Afraid, Rape, and Kick questionnair e Answer Date Recorded Within the last year, have y ou been afraid of your partner or ex-partner? No 12/21/2023 Within the last year, have y ou been humiliated or emotionally abused in other ways by your partner or ex-partner? No Within the last year, have y ou been kicked, hit, slapped, or otherwise physically hurt by your partner or ex-partner? No 12/21/2023 Within the last year, have y ou been raped or forced to have any kind of sexual activity by your partner or ex-partner? No 12/21/2023 AUDIT-C Answer Date Recorded Frequency of Alcohol Consumption Never 03/19/2019 Average Number of Drinks Not on file 019 Frequency of Binge Drinking Not on file 03/05 Overall Financial Resource Strain (CARDIA) Answe r Date Recorded How hard is it for you to pa y for the very basics like food, housing, medical care, and heating? Not hard at all 12/21/2023 PHQ-2 Answer Date Recorded PHQ-2 Score - If the patient scores above 3, please move on to questions 3-9 0 10/11/2021 Hunger Vital Sign Answer Date Recorded Within the past 12 months, y ou worried that your food would run out before you got the money to buy more. Never true 12/21/19 24 Within the past 12 months, t he food you bought just didn't last and you didn't have money to get more. Never true 12/21/2023 PRAPARE - Transportation Answer Date Re corded In the past 12 months, has l ack of transportation kept you from medical appointments or from getting medications? No 12/03 In the past 12 months, has l ack of transportation kept you from meetings, work, or from getting things needed for daily living? No 12/21/2023 Housing Stability Vital Sign Answer Coleman e Recorded In the last 12 months, was t here a time when you were not able to pay the mortgage or rent on time? No 01/28/2023 In the last 12 months, how many places have you lived? 1 01/28/2023 In the last 12 months, was t here a time when you did not have a steady place to sleep or slept in a alf (including now)? No 01/28/2023 Housing Stability Vital Sign Answer Coleman e Recorded In the last 12 months, was t here a time when you were not able to pay the mortgage or rent on time? No 12/21/2023 In the past 12 months, how m any times have you moved where you were living? 0 12/21/2023 At any time in the past 12 m [facility], were you homeless or living in a alf (including now)? No 12/21/2023 Comments No Sex and Gender Information Value Date Recorded Sex Assigned at Female 06/10/2024 3:22 PM CREW MANAGER Legal Sex Female 10:34 AM CDT Gender Identity Not on file Sexual Orientation Not on file Last Filed Vital Signs Vital Sign Reading Time Taken Comments Blood Pressure 162/73 08/14/2024 3:10 PM CDT Pulse 77 08/14/2024 3:10 PM CDT Temperature 36.7 C (98.1 F) 08/14/2024 1:54 PM CDT Respiratory Rate 16 08/14/2024 3:10 PM CDT Oxygen Saturation 100% 08/14/2024 3:10 PM CDT Inhaled Oxygen Concentration - - Weight 106.6 kg (235 lb) 08/14/2024 1:54 PM CDT Height 162.6 cm (5' 4) 08/14/2024 1:54 PM CDT Body Mass Index 40.34 08/14/2024 1:54 PM CDT Plan of Treatment Health Maintenance Due Date Last Done Comments Diabetes: Retinopathy Eye Exam 12/30/1977 Hepatitis C 12/30/1977 RSV Immunization or 60+ Years (1 - Risk 60-74 years 1-dose series) 2019 Zoster Vaccines (3 of 3) 11/06/2023 09/11/2023, 11/0 07/2022 Hemoglobin A1C 03/23/2024 12/22/2023, 01/04, 10/25/2022, Additional history exists Lipid Panel 12/21/2024 12/22/2023, 09/03, 07/02/2023, Additional history exists Dexa Scan (General) 12/30/2024 COVID-19 Vaccine ( season) 2025 09/16/2020, 08/19/2020, 08/17/2020 Influenza Adult (#1) 2025 02/01/2023, 04/14/20 19 Mammogram Screening 09/26/2025 09/27/2023, 09/07/2022, 08/31/2021 Kidney Health Evaluation 10/13/2025 10/13/2024 Colorectal Cancer Screening Colonoscopy (10 Years) 03/25/2029 03/25/2019, 03/25/2019, 03/25/2019 DTaP, Tdap and Td Vaccines (4 - Td or Tdap) 12/20/2033 12/21/2023, 09/11/2023, 01/02/2009 Pneumococcal Vaccine: 50+ Years Completed 03/07/2023 Hepatitis A Vaccines Aged Out No long er eligible based on patient's age to complete this topic Meningococcal B Vaccine Aged Out No l onger eligible based on patient's age to complete this topic Meningococcal Vaccine Aged Out No [place] eligible based on patient's age to complete this topic RSV Immunizations Under 20 Months Aged Out No longer eligible based on patient's age to complete this topic Goals Goal Patient Goal Type Associated Problems Recent Progress Patient-Stated? Author Family - family caregiver with be involved in care transitions and discharge planning General No Ashlee Garcia, [employer] Health - patient able to perform ADLs independently Lifestyle No Sergio [place], [place], home demonstrator Procedure Name Priority Date/Time Associated Diagnosis Comments RENAL FUNCTION PANEL Routine 02/23/2025 12:12 PM CDT Stage 3b chronic kidney disease (CMS/HCC) PTH INTACT W/ CALCIUM Routine 02/23/2025 12:12 PM CDT Stage 3b chronic kidney disease (CMS/HCC) CBC W/DIFF AUTOMATED Routine 02/23/2025 12:12 PM CDT Stage 3b chronic kidney disease (CMS/HCC) LIPID PANEL Routine 12/22/2023 4:11 AM CDT HEMOGLOBIN, GLYCOSYLATED Routine 12/22/2023 4:11 AM CDT MG SCREENING W ALVARO TOMAS DIGI Routine 09/27/2023 11:08 AM CDT Encounter for screening mammogram for malignant neoplasm of breast COLONOSCOPY Routine 03/25/2019 8:53 AM CREW MANAGER from Last 3 Months or Most Recently Relevant to Health Maintenance Results * (ABNORMAL) PTH INTACT W/ CALCIUM (02/23/2025 12:12 PM CDT) PTH INTACT 154.3(H) 18.4 - 80.1 PG/ML 02/23/2025 1:38 PM CDT [facility] CALCIUM S/P/B 8.8 8.5 - 10.1 MG/DL 02/23/2025 1:27 PM CDT [facility] Comment: INTERPRETIVE GUIDELINES INTACT PTH CALCIUM NORMAL: NORMAL NORMAL HYPOPARATHYROIDISM: LOW LOW HYPERPARATHYROIDISM PRIMARY: HIGH HIGH SECONDARY: HIGH LOW OR NORMAL 02/23/2025 12:1 2 PM CDT [facility] Final Result [facility] [address] [place] [address], * (ABNORMAL) RENAL FUNCTION PANEL (02/23/2025 12:12 PM CDT) GLUCOSE 284(H) 70 - 99 MG/DL 02/23/2025 1:27 PM CDT [facility] BUN 27(H) 7 - 18 MG/DL 02/23/2025 1:27 PM CDT [facility] CREATININE S/P/B 1.69(H) 0.55 - 1.02 MG/DL 02/23/2025 1:27 PM CDT [facility] SODIUM S/P/B 137 136 - 145 MMOL/L 02/23/2025 1:27 PM CDT [facility] POTASSIUM S/P/B 4.4 3.5 - 5.1 MMOL/L 02/23/2025 1:27 PM CDT [facility] CHLORIDE S/P/B 104 97 - 115 MMOL/L 02/23/2025 1:27 PM CDT [facility] CO2 27.5 21 - 32 MMOL/L 02/23/2025 1:27 PM CDT [facility] CALCIUM S/P/B 8.8 8.5 - 10.1 MG/DL 02/23/2025 1:27 PM CDT [facility] ALBUMIN S/P/B 3.4 3.4 - 5.0 G/DL 02/23/2025 1:27 PM CDT [facility] PHOSPHORUS 3.7 2.5 - 4.9 MG/DL 02/23/2025 1:27 PM CDT [facility] ANION GAP 5.5 2 - 10 MMOL/L 02/23/2025 1:27 PM CDT [facility] BUN CREATININE RATIO 16.0 6 - 26 02/23/2025 1:27 PM CDT [facility] GFR ESTIMATE 33(L) >90 ML/MIN/1.7 3 M2 02/23/2025 1:27 PM CDT [facility] Comment: NOTE: eGFR is not calculated for patients <18 years of age or gender unknown. This is an estimated GFR calculation using the new CKD EPI creatinine equation without race and so does not require a correction factor for race. This estimated GFR should not be used for calculating drug doses. 02/23/2025 12:1 2 PM CDT us [facility] Final Result [facility] [address] [place] [address], [place] [phone] * (ABNORMAL) CBC W/DIFF AUTOMATED (02/23/2025 12:12 PM CDT) WBC 9.80 4.5 - 11.0 x10'3/uL 02/23/2025 1:04 PM CDT [facility] RBC 5.20 4.20 - 5.40 x10'6/uL 02/23/2025 1:04 PM CDT [facility] HGB 15.2 12.0 - 16.0 G/DL 02/23/2025 1:04 PM CDT [facility] HCT 45.1 38.0 - 48.0 % 02/23/2025 1:04 PM CDT [facility] MCV 86.7 81.0 - 99.0 FL 02/23/2025 1:04 PM CDT [facility] MCH 29.2 27.0 - 31.0 PG 02/23/2025 1:04 PM CDT [facility] MCHC 33.7 32.0 - 36.0 G/DL 02/23/2025 1:04 PM CDT [facility] RDW 13.2 11.5 - 14.5 % 02/23/2025 1:04 PM CDT [facility] PLT 337 130 - 400 x10'3/uL 02/23/2025 1:04 PM CDT [facility] MPV 10.7 9.3 - 12.2 FL 02/23/2025 1:04 PM CDT [facility] DIFFERENTIAL TYPE AUTOMATED DIFFERENTIAL 02/23/2025 1:04 PM CDT [facility] NEUTROPHILS % 66.1 % 02/23/2025 1:04 PM CDT [facility] LYMPHOCYTES % 22.6 % 02/23/2025 1:04 PM CDT [facility] MONOCYTES % 6.3 % 02/23/2025 1:04 PM CDT [facility] EOSINOPHILS 3.6 % 02/23/2025 1:04 PM CDT [facility] BASOPHILS 0.9 % 02/23/2025 1:04 PM CDT [facility] IMMATURE GRANS % 0.5 % 02/24/20 1:04 PM CDT [facility] ABS. NEUTROPHILS 6.48 1.80 - 7.70 x10'3/uL 02/23/2025 1:04 PM CDT [facility] ABS. LYMPHOCYTES 2.21 1.00 - 4.80 x10'3/uL 02/23/2025 1:04 PM CDT [facility] ABS. MONOCYTES 0.62 0.24 - 0.86 x10'3/uL 02/23/2025 1:04 PM CDT [facility] ABS. EOSINOPHILS 0.35 0.04 - 0.36 x10'3/uL 02/23/2025 1:04 PM CDT [facility] ABS. BASOPHILS 0.09(H) 0.01 - 0.08 x10'3/uL 02/23/2025 1:04 PM CDT [facility] ABS. IMMATURE GRANULOCYTES 0.05 0.00 - 0.49 x10'3/uL 02/23/2025 1:04 PM CDT [facility] 02/23/2025 12:1 2 PM CDT [facility] Final Result [facility] [address] [place] [address], * (ABNORMAL) HEMOGLOBIN, GLYCATED (12/22/2023 4:11 AM CDT) HGB A1C 10.8(H) <5.7 % 12/22/2023 10:29 AM CDT [facility] Comment: ADA GUIDELINES 2010 5.7 TO 6.4% INCREASED RISK OF DIABETES > OR = 6.5% CONSISTENT WITH DIABETES ESTIMATED AVG GLUCOSE 263 mg/dL 12/22/2023 10:29 AM CDT [facility] 12/22/2023 4:11 AM CDT us Radha Frost [facility] Final Resu lt [facility] [address] [place] [address], [place] [phone] * (ABNORMAL) LIPID PANEL (12/22/2023 4:11 AM CDT) CHOLESTEROL 152 <200 MG/DL 12/22/2023 4:51 AM CDT [facility] TRIGLYCERIDES 357(H) <150 MG/DL 12/22/2023 4:51 AM CDT [facility] HDL 37(L) >40.0 MG/DL 12/22/2023 4:51 AM CDT [facility] LDL (CALCULATED) 44 <100 MG/DL 12/22/2023 4:51 AM CDT [facility] NON HDL CHOLESTEROL 115 <130 MG/DL 12/22/2023 4:51 AM CDT [facility] CHOL/HDL RATIO 4.1 0.0 - 4.5 12/22/2023 4:51 AM CDT [facility] VLDL CALCULATION 71(H) 5 - 55 MG/DL 12/22/2023 4:51 AM CDT [facility] LIPID INTERPRETATION 12/22/2023 4:51 AM T [facility] Comment: NIH CONCENSUS REPORT RECOMMENDATIONS: ADULT CHILD LOW RISK: CHOLESTEROL <200 <170 TRIGLYCERIDE <150 --- HDL >=60 --- LDL <100 <110 BORDERLINE: CHOLESTEROL 200-239 170-199 TRIGLYCERIDE 150-199 --- HDL 40-59 --- LDL 100-159 110-129 HIGH RISK: CHOLESTEROL >=240 >=200 TRIGLYCERIDE >=200 --- HDL <40 --- LDL >=160 >=130 12/22/2023 4:11 AM CDT us Radha Frost [facility] Final Resu lt [facility] [address] [place] [address], [place] [phone] * MG SCREENING W ALVARO TOMAS DIGI (09/27/2023 11:08 AM CDT) Anatomical Region Laterality Modality Breast Bilateral Mammography 09/30/2023 9:49 AM CDT Impressions 09/30/2023 9:52 AM CDT IMPRESSION: No significant interval change. No mammographic evidence of malignancy. RECOMMENDATION: Routine ScreeningBilateral OVERALL IMAGING ASSESSMENT: ACR BI-RADS 2 - BENIGN FINDING(S). Ordered By: GUY COVARRUBIAS Interpreted By: John Chavez, 09/30/2023 9:49 AM Narrative 09/30/2023 9:52 AM CDT EXAMINATION: MG SCREENING W ALVARO TOMAS DIGI INDICATIONS: Screening TECHNIQUE: Digital full field CC and MLO screening mammography bilaterally to include 3-D Tomosynthesis technique. This study was read with the assistance of a computer-aided detection system. HISTORY: No reported breast complaint. Family history of breast cancer. No documented personal or first degree family history of breast cancer. No documented prior breast procedure. COMPARISON: 09/07/2022, 08/31/2021, 02/09/2020, 01/21/2019, and 08/26/2015. TISSUE DENSITY: There are scattered areas of fibroglandular density. FINDINGS: Scattered typically benign round calcifications. No suspicious microcalcification or mass. No developing asymmetry or architectural distortion. No axillary adenopathy. us Guy Covarrubias MD MAMMO Final Result * COLONOSCOPY (03/25/2019) us Documents Scanned SCANNING Final Result from Last 3 Months or Most Recently Relevant to Health Maintenance Insurance [employer] Advance Directives * Full Code (Latest Code Status on File) Date Activated Date Inactivated Comments 12/21/2023 6:57 PM 12/22/2023 4:49 PM * Full Code Date Activated Date Inactivated Comments 06/19/2023 4:50 AM 06/23/2023 3:09 PM * Full Code Date Activated Date Inactivated Comments 01/28/2023 8:46 PM 02/01/2023 5:06 PM * Full Code Date Activated Date Inactivated Comments 11/08/2020 12:18 AM 11/09/2020 5:49 PM Care Teams Exhaust And Muffler Repairer Relationship Specialty Start Date End Date Donnell Gabriel MD [address] [place] [address] PCP - General FAMILY PRACTICE 10/25/22 Donnell Gabriel MD [address] [place] [address] FAMILY PRACTICE 08/27/22
--- OUTSIDE RECORDS SUMMARY | 2025-03-29 16:53 | XMS_ITS | Clinical Summary ---
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 8 Active chlorthalidone (HYGROTON) 25 MG tablet Take 25 mg by mouth 1 (one) time each day Active albuterol HFA (PROVENTIL HFA) 108 (90 Base) MCG/ACT inhaler 2 Active furosemide (LASIX) 20 MG tablet 2 Active HumuLIN R U-500 KWIKPEN 500 UNIT/ML CONCENTRATED injection 70 units in morning and 45 in evening 2 Active isosorbide mononitrate (IMDUR) 30 MG 24 hr tablet Take 30 mg by mouth 1 (one) time each day 2 Active Linzess 72 MCG capsule Take 1 capsule by mouth 1 (one) time each day 2 Active rosuvastatin (CRESTOR) 20 MG tablet Take 20 mg by mouth 1 (one) time each day 2 Active Spiriva Respimat 2.5 MCG/ACT aerosol solution As needed 2 Active Dapagliflozin Propanediol (Farxiga) 10 MG tablet Take 10 mg by mouth 1 (one) time each day Active Cholecalciferol (Vitamin D) 50 MCG (1999) capsule Take by mouth Active Tirzepatide (Mounjaro) 15 MG/0.5ML solution auto-injector Inject 15 mg under the skin every 7 (seven) days Active Active Problems Problem Noted Date Diagnosed Date Hypoglycemia 02/23/2025 Obstructive sleep apnea 04/07/2020 Hypertensive chronic kidney disease, malignant, with chronic kidney disease stage I through stage IV, or unspecified 12/10/2018 Uncontrolled type 2 diabetes mellitus with compl ication 12/10/2018 Stage 3b chronic kidney disease 12/10/2018 Resolved Problems Problem Noted Date Diagnosed Date Resolved Date Hyperkalemia 07/07/2019 04/07/2020 Acute renal failure syndrome 01/06/2019 04/07/2020 Congestive heart failure 12/10/201808/2019 Hyperlipidemia 12/10/2018 01/06/2019 Encounters Date Type Department Care Team Description 02/24/2025 3:20 PM CDT Office Visit [facility] [address] [place] [address] Amisha Coronado NP Stage 3b chronic kidney disease (Primary Dx); Hypertensive chronic kidney disease, malignant, with chronic kidney disease stage I through stage IV, or unspecified; Uncontrolled type 2 diabetes mellitus with complication ([facility]); Obstructive sleep apnea from Last 3 Months Family History Medical History Relation Comments Heart disease Father Hyperlipidemia Father Diabetes Mother Heart disease Mother Hyperlipidemia Mother Stroke Relative Diabetes Sister Relation Status Comments Father Mother Relative Maternal Aunt Sister Social History Tobacco Use Types Packs/Day Years Used Date Smoking Tobacco: Former Smokeless Tobacco: Never Tobacco Cessation:Counseling Given: Not Answered Alcohol Use Standard Drinks/Week Comments Never 0 [...] Sign Reading Time Taken Comments Blood Pressure 161/72 02/24/2025 3:13 PM CDT Pulse 80 02/24/2025 3:13 PM CDT Temperature 36.4 C (97.6 F) 12/27/2021 9:03 AM CDT Respiratory Rate - - Oxygen Saturation 96% 12/26/2022 3:17 PM CDT Inhaled Oxygen Concentration - - Weight 92.5 kg (204 lb) 02/24/2025 3:13 PM CDT Height 162.6 cm (5' 4) 02/24/2025 3:13 PM CDT Body Mass Index 35.02 02/24/2025 3:13 PM CDT Plan of Treatment Upcoming Encounters Date Type Department Care Team (Late st Contact Info) Description 06/16/2025 1:20 PM DISABILITY AIDE Office Visit [facility] [address] [facility] [address] [place] [address] Amisha Coronado, SOCIAL ORGANIZATION PROFESSOR [address] [address] Health Maintenance Due Date Last Done Comments Diabetic Foot Exam 12/30/1969 Ophthalmology Exam 12/30/1969 Pneumococcal PPSV23/PCV13 65 + Years / High and Highest Risk (1 of 5 - PCV) 12/30/1978 Influenza Vaccine (#1) 2025 02/01/2023 Care Teams Attenuator Relationship Specialty Start Date End Date Sanju Gaines DO [address] [place] [address] PCP - General 08/14/20
--- OUTSIDE RECORDS SUMMARY | 2025-03-29 16:53 | XMS_ITS | Data Portability ---
Author Organization [facility]ish , [facility] Address [address] [place] [address] Assessment No assessment recorded. Plan of Treatment Reminders Order Date Submit Date Provider Last Modified By Organization Details Last Modified Time Details Appointments None recorded. Lab HPV E6+E7 mRNA, qualitative PCR, cervix 2024 025 [facility], [address] [place], [address], 5 11:42:42 pap, LB 2024 025 [facility], [address] [facility], [place], [address], 5 19:30:09 unlisted lab - HPV plus CT/GC/trich 2024 025 [email or web address] [facility], [address] [place], [address], 5 11:42:42 bacterial vaginosis + vaginitis panel, vaginal 2023 024 [facility], [address] [place], [address], 4 08:39:53 HPV E6+E7 mRNA, qualitative PCR, cervix 2021 022 [facility], [address] [place], [address], 2 18:05:12 pap, LB 2021 022 [facility], [address] [facility], [place], [address], 2 12:19:40 Referral None recorded. Procedures None recorded. Surgeries None recorded. Imaging MAMMO, screening, digital, bilateral 2024 025 [facility], [address] [facility], [place], [address], 5 13:52:56 MAMMO, screening, digital, bilateral 2023 024 [facility], [address] [facility], [place], [address], 5 17:41:43 MAMMO, screening, digital, bilateral 2022 023 [email or web address] Not available 3 10:35:44 MAMMO, screening, digital, bilateral 2021 022 [email or web address] Not available 2 14:39:37 Medication Orders progesteron e micronized 100 mg capsule 2024 025 [facility], [address] [facility] [address], [place], [address], 5 15:36:50 Prometrium 100 mg capsule 2021 022 [email or web address] [facility] 201, [address] [facility] [address], [place], [address], 3 16:29:25 Patient TargetsNo targets recorded. Patient Instructions Encounter Date Encounter Id Patient Instructions Last Modified By Organization Details Last Modified Time 06/18/2021 [id number] abuse/domestic violence education Not available 06/18/2021 14:13:41 eating healthy foods: care instructions Not available 06/18/2021 14:13:41 general health care education Not available 06/18/2021 14:13:41 weight managemen t education Not available 06/18/2021 14:13:41 mammogram: about this test Not available 06/18/2021 14:13:41 08/21/2022 [id number] Patient Health Questionnaire-9* [email or web address] Not available 08/27/2022 12:30:26 abuse/domestic violence education Not available 08/21/2022 17:03:15 eating healthy foods: care instructions Not available 08/21/2022 17:03:15 general health care education Not available 08/21/2022 17:03:15 weight managemen t education Not available 08/21/2022 17:03:15 mammogram: about this test Not available 08/21/2022 17:03:15 08/27/2023 [id number] body mass index: care instructions [email or web address] Not available 08/27/2023 19:06:21 mammogram: about this test [email or web address] Not available 08/27/2023 19:06:21 09/17/2024 [id number] body mass index: care instructions Not available 09/17/2024 15:36:43 mammogram: about this test Not available 09/17/2024 15:36:43 Reason for Referral None Reported. Results Created Date Observation Date Name Description Value Unit Range Abnormal Flag Note LastModifiedBy Organization Detail LastModifiedTime 06/18/19 22 06/20/2021 HPV HIGH RISK HPV high risk Negati ve negati ve The HPV High Risk assay is inten ded for use as co-te sting with cytol ogy and not as a subst itute for regul ar cervi demarco cytol ogy scree joan. This assay is not inten ded for use as a scree joan devic e for women under age 30 with erickson l cervi demarco cytol ogy. Not Available [facility] [address] [place], [address], 06/20/2021 18:05:12 06/19/19 22 06/25/2021 THINP REP TIS PAP clinical information: normal Infor matio n not provi ded Not Available [address] [address] [place], [address], 06/25/2021 12:19:40 06/19/19 22 06/25/2021 THINP REP TIS PAP LMP: normal NONE GIVEN Not Available [address] [address] [place], [address], 06/25/2021 12:19:40 06/19/19 22 06/25/2021 THINP REP TIS PAP prev. Pap: normal NONE GIVEN Not Available [address] [address] [place], [address], 06/25/2021 12:19:40 06/19/19 22 06/25/2021 THINP REP TIS PAP prev. BX: normal NONE GIVEN Not Available [address] [place], [address], 06/25/2021 12:19:40 06/19/19 22 06/25/2021 THINP REP TIS PAP source: normal None given Not Available [address] [place], [address], 06/25/2021 12:19:40 06/19/19 22 06/25/2021 THINP REP TIS PAP statement of adequacy: normal Satis facto ry for evalu ation . Endoc ervic al/tr ansfo rmati on zone compo nent prese nt. Not Available [address] [place], [address], 06/25/2021 12:19:40 06/19/19 22 06/25/2021 THINP REP TIS PAP interpretati on/result: normal Negat willie for intra epith elial lesio n or malayo lawrence . Not Available [address] [address] [place], [address], 06/25/2021 12:19:40 06/19/19 22 06/25/2021 THINP REP TIS PAP comment: normal This Pap test has been evalu ated with chas morrison techn ology . Not Available [address] [address] [place], [address], 06/25/2021 12:19:40 06/19/19 22 06/25/2021 THINP REP TIS PAP cytotechnolo gist: normal MSJ, CT( CP) CT Scree joan locat ion: [facility] [place] [address] [place] [address] Not Available [facility] [address], [place], [address], 06/25/2021 12:19:40 06/19/19 22 06/25/2021 THINP REP TIS PAP comment EXPLA NATOR Y NOTE: The Pap is a scree joan test for cervi demarco cance r. It is not a diagn ostic test and is subje ct to false negat willie and false posit willie resul ts. It is most relia ble when a satis facto ry sampl e, regul israel obtai bee, is submi tted with relev ant clini demarco findi ngs and histo ry, and when the Pap resul t is evalu ated along with histo daja and curre nt clini demarco infor matio n. Not Available [facility] [address] [address], [place], [address], 06/25/2021 12:19:40 01/30/20 23 01/29/2023 CBC WITH DIFF WBC 12.8 x10'3 /uL 4.5-11 .0 high Not Available [facility] (Lab) [address] [place], [address], 01/29/2023 21:12:02 01/30/20 23 01/29/2023 CBC WITH DIFF RBC 4.38 x10'6 /uL 4.20-5 .40 Not Available [facility] (Lab) [address] [place], [address], 01/29/2023 21:12:02 01/30/20 23 01/29/2023 CBC WITH DIFF hemoglobin 13.1 g/dL 12.0-1 6.0 Not Available [facility] (Lab) [address], [place], [address], 01/29/2023 21:12:01/30/2001/29/2023 CBC WITH DIFF hematocrit 39.7 % 38.0-4 8.0 Not Available [facility] (Lab) [address], [place], [address], 01/29/2023 21:12:01/30/2001/29/2023 CBC WITH DIFF MCV 90.6 fL 81.0-9 9.0 Not Available [facility] (Lab) [address], [place], [address], 01/29/2023 21:12:01/30/2001/29/2023 CBC WITH DIFF MCH 29.9 pg 27.0-3 1.0 Not Available [facility] (Lab) [address], [place], [address], 01/29/2023 21:12:01/30/2001/29/2023 CBC WITH DIFF MCHC 33.0 g/dL 32.0-3 6.0 Not Available [facility] (Lab) [address], [place], [address], 01/29/2023 21:12:01/30/2001/29/2023 CBC WITH DIFF RDW 12.9 % 11.5-1 4.5 Not Available [facility] (Lab) [address], [place], [address], 01/29/2023 21:12:02 01/30/20 23 01/29/2023 CBC WITH DIFF platelet count 312 x10'3 /uL 130-40 0 Not Available [facility] (Lab) [address], [place], [address], 01/29/2023 21:12:02 01/30/20 23 01/29/2023 CBC WITH DIFF MPV 11.2 fL 9.3-12 .2 Not Available [facility] (Lab) [address], [place], [address], 01/29/2023 21:12:01/30/2001/29/2023 CBC WITH DIFF diff type AUTOMA JUANY DIFFER ENTIAL Not Available [facility] (Lab) [address] [place] [facility] [place], [address], 01/29/2023 21:12:02 01/30/20 23 01/29/2023 CBC WITH DIFF neutrophils 74.7 % Not Available [facility] (Lab) [address], [place], [address], 01/29/2023 21:12:02 01/30/20 23 01/29/2023 CBC WITH DIFF lymphocytes 15.2 % Not Available [facility] (Lab) [address] [place] [facility] [place], [address], 01/29/2023 21:12:02 01/30/20 23 01/29/2023 CBC WITH DIFF monocytes 5.9 % Not Available [facility] (Lab) [address], [place], [address], 01/29/2023 21:12:02 01/30/20 23 01/29/2023 CBC WITH DIFF eosinophils 3.4 % Not Available [facility] (Lab) [address] [place] [facility] [place], [address], 01/29/2023 21:12:01/30/2001/29/2023 CBC WITH DIFF basophils 0.5 % Not Available [facility] (Lab) [address] [facility], [place], [address], 01/29/2023 21:12:01/30/2001/29/2023 CBC WITH DIFF immature granulocytes 0.3 % Not Available [facility] (Lab) [address] [facility], [place], [address], 01/29/2023 21:12:01/30/2001/29/2023 CBC WITH DIFF abs. neutrophils 9.52 x10'3 /uL 1.80-7 .70 high Not Available [facility] (Lab) [address] [facility], [place], [address], 01/29/2023 21:12:01/30/2001/29/2023 CBC WITH DIFF abs. lymphocytes 1.94 x10'3 /uL 1.00-4 .80 Not Available [facility] (Lab) [address] [facility], [place], [address], 01/29/2023 21:12:01/30/2001/29/2023 CBC WITH DIFF abs. monocytes 0.75 x10'3 /uL 0.24-0 .86 Not Available [facility] (Lab) [address] [facility], [place], [address], 01/29/2023 21:12:01/30/2001/29/2023 CBC WITH DIFF abs. eosinophils 0.43 x10'3 /uL 0.04-0 .36 high Not Available [facility] (Lab) [address] [facility], [place], [address], 01/29/2023 21:12:02 01/30/20 23 01/29/2023 CBC WITH DIFF abs. basophils 0.07 x10'3 /uL 0.01-0 .08 Not Available [facility] (Lab) [place], [address], 01/29/2023 21:12:02 01/30/20 23 01/29/2023 CBC WITH DIFF abs. immature grans 0.04 x10'3 /uL 0.00-0 .49 Not Available [facility] (Lab) [place], [address], 01/29/2023 21:12:02 08/27/19 24 08/29/2023 VAGIN ITIS PLUS STD PANEL bacterial vaginosis BV neg negati ve normal Not Available [address], [address], 08/30/2023 08:39:53 08/27/19 24 08/29/2023 VAGIN ITIS PLUS STD PANEL joseph species C. spp POS negati ve abnormal Not Available [address], [address], 08/30/2023 08:39:53 08/27/19 24 08/29/2023 VAGIN ITIS PLUS STD PANEL joseph glabrata C. gla POS negati ve abnormal Not Available [address], [address], 08/30/2023 08:39:53 08/27/19 24 08/29/2023 VAGIN ITIS PLUS STD PANEL trichomonas vaginalis CV/TV TRICH neg negati ve normal Not Available [address], [address], 08/30/2023 08:39:53 08/27/19 24 08/29/2023 VAGIN ITIS PLUS STD PANEL chlamydia trachomatis CT neg negati ve normal This repor t is inten ded for us in clini demarco monit oring and manag ement [facility]. It is not inten ded for use in medic al-le gal appli catio n. Not Available [facility] [address] [place], [address], 08/30/2023 08:39:53 08/27/19 24 08/29/2023 VAGIN ITIS PLUS STD PANEL neisseria gonorrhoeae GC neg negati ve normal This repor t is inten ded for us in clini demarco monit oring and manag ement [facility]. It is not inten ded for use in medic al-le gal appli catio n. Not Available [facility] [address] [facility], [place], [address], 08/30/2023 08:39:53 09/18/19 25 09/17/2024 HPV HIGH RISK HPV high risk duplic ate order Not Available [facility] [address] [place], [address], 09/18/2024 09:48:07 09/18/19 25 09/21/[address]/GC /TRIC H trichomonas vaginalis TRICH neg negati ve normal Not Available [facility] [address] [place], [address], 09/21/2024 14:54:41 09/18/19 25 09/21/[address]/GC /TRIC H chlamydia trachomatis CT neg negati ve normal This repor t is inten ded for us in clini demarco monit oring and manag ement [facility]. It is not inten ded for use in medic al-le gal appli catio n. Not Available [facility] [address] [place], [address], 09/21/2024 14:54:41 09/18/19 25 09/21/[address]/GC /TRIC H neisseria gonorrhoeae GC neg negati ve normal This repor t is inten ded for us in clini demarco monit oring and manag ement [facility]. It is not inten ded for use in medic al-le gal appli catio n. Not Available [facility] [address] [place], [address], 09/21/2024 14:54:41 09/18/19 25 09/21/[address]/GC /TRIC H HPV high risk Negati ve negati ve normal The HPV High Risk assay is inten ded for use as co-te sting with cytol ogy and not as a subst itute for regul ar cervi demarco cytol ogy scree joan. This assay is not inten ded for use as a scree joan devic e for women under age 30 with erickson l cervi demarco cytol ogy. Not Available [facility] [address] [place], [address], 09/21/2024 14:54:41 09/18/19 25 09/22/2024 THINP REP TIS PAP clinical information: normal None given Not Available [employer] [facility] [address], [address], 09/22/2024 19:30:09 09/18/19 25 09/22/2024 THINP REP TIS PAP LMP: normal NONE GIVEN Not Available [facility] [address], [address], 09/22/2024 19:30:09 09/18/19 25 09/22/2024 THINP REP TIS PAP prev. Pap: normal NONE GIVEN Not Available [facility] [address], [address], 09/22/2024 19:30:09 09/18/19 25 09/22/2024 THINP REP TIS PAP prev. BX: normal NONE GIVEN Not Available [employer] [address], [address], 09/22/2024 19:30:09 09/18/19 25 09/22/2024 THINP REP TIS PAP source: normal Cervi x Not Available [facility] [address], [address], 09/22/2024 19:30:09 09/18/1909/22/2024 THINP REP TIS PAP statement of adequacy: normal Satis facto ry for evalu ation . Endoc ervic al/tr ansfo rmati on zone compo nent prese nt. Not Available [address] [address] [place], [address], 09/22/2024 19:30:09 09/18/19 25 09/22/2024 THINP REP TIS PAP interpretati on/result: normal Cytol ogy Resul ts: Negat willie for intra epith elial lesio n or tayla lawrence . Not Available [address] [address] [place], [address], 09/22/2024 19:30:09 09/18/19 25 09/22/2024 THINP REP TIS PAP comment: normal This Pap test has been evalu ated with compu ter blaine juany techn ology . Not Available [address] [address] [place], [address], 09/22/2024 19:30:09 09/18/1909/22/2024 THINP REP TIS PAP cytotechnolo gist: normal MEF, CT( CP) CT scree joan locat ion: [address] [address] [place] [address] Not Available [address] [address] [place], [address], 09/22/2024 19:30:09 09/18/19 25 09/22/2024 THINP REP TIS PAP comment EXPLA NATOR Y NOTE: The Pap is a scree joan test for cervi demarco cance r. It is not a diagn ostic test and is subje ct to false negat willie and false posit willie resul ts. It is most relia ble when a satis facto ry sampl e, regul israel obtai bee, is submi tted with relev ant clini demarco findi ngs and histo ry, and when the Pap resul t is evalu ated along with histo daja and curre nt clini demarco infor minnie n. Not Available [facility] [address], [place], [address], 09/22/2024 19:30:09 09/30/19 24 09/27/2023 MAMMO , scree joan, tomos ynthe sis, bilat eral [facility] [address] [place] [address] This is a summar y report . The comple te report is availa ble in the patien t's medica l record . If you cannot access the medica l record , please contac t the sendin g organi zaluis e for a detail ed fax or copy. EXAMIN ATION: MG SCREEN ING W ALVARO TOMAS DIGI ACCESS ION: [id number] INDICA TIONS: Screen ing TECHNI QUE: Digita l full field CC and MLO screen ing mammog clemente bilate rally to includ e 3-D Tomosy nthesi s techni que. This study was read with the assist ance of a Cloudy.fr er-aid ed detect ion system . HISTOR Y: No report ed breast compla int. Family histor y of breast cancer . No docume nted person al or first degree family histor y of breast cancer . No docume nted prior breast proced ure. COMPAR ZEV: 09/08/19 23, 022, 020, 019, and 016. TISSUE DENSIT Y: There are scatte red areas of fibrog landul ar densit y. FINDIN GS: Scatte red typica lly benign round calcif icatio ns. No suspic ious microc alcifi cation or mass. No develo ping asymme try or carrington ectura l distor tion. No axilla ry adenop athy. IMPRES ERIC: No signif icant interv al change . No mammog raphic eviden ce of malign ed. RECOMM ENDATI ON: Routin e Screen ingBil ateral OVERAL L IMAGIN G ASSESS MENT: ACR BI-RAD S 2 - BENIGN FINDIN G(S). Ordere d By: RAEGAN COVARRUBIAS Electr onical ly Signed By: Deniz Chavez on 9:52 AM Interp reted By: Deniz Chavez, 9:49 AM [facility] [address] [facility], [place], [address], 10/27/2023 21:20:15 10/13/19 25 10/01/2024 MAMMO , scree joan, digit al, bilat eral No observ ation record ed. [facility] [address] [place], [address], 10/12/2024 14:21:14 Result Notes Documentation Provider Name and Address Organization Details Recorded Time Mammo, Screening, Tomosynthesis, Bilateral : [id number] [place] [address] This is a summary report. The complete report is available in the patient's medical record. If you cannot access the medical record, please contact the sending organization for a detailed fax or copy. EXAMINATION: MG SCREENING W ALVARO TOMAS DIGI [...] asymmetry or architectural distortion. No axillary adenopathy. IMPRESSION: No significant interval change. No mammographic evidence of malignancy. RECOMMENDATION: Routine ScreeningBilateral OVERALL IMAGING ASSESSMENT: ACR BI-RADS 2 - BENIGN FINDING(S). Ordered By: GUY COVARRUBIAS Interpreted By: John Chavez, 09/30/2023 9:49 AM Guy Covarrubias MD [address] [place], [address], [facility] 10/27/2023 21:20:15 Problems Name Problem SNOMED Code Status Onset Date Resolution Date Notes Provider Name and Address Organization Details Recorded Time Abscess of vulva 63680582 Completed 202008/27/2023 Abscess of vulva; Progress: Stable Added By: Vicky Potter Add to Current Problems: YES ProblemSt atus: Current Saida Munoz CNM [address] [place], [address], [facility] 4 19:02:47 Joseph infectio n of genital region Completed 202008/27/2023 Candidias is of vulva and vagina; Progress: Stable Added By: Guy Covarrubias Add to Current Problems: YES ProblemSt atus: Current Saida Munoz CNM [address] [place], [address], [employer] [facility] 4 19:02:47 Vaginola bial hernia Completed 202008/27/2023 Other specified noninflam matory disorders of vagina; Progress: Stable Added By: Irasema Adair Add to Current Problems: YES ProblemSt atus: Current Saida Munoz CNM [address] [place], [address], [employer] [facility] 4 19:02:47 Hyperten sive disorder 04186877 Active 2023 Saida Munoz CNM [address] [place], [address], [facility] 4 19:02:59 Old myocardi al infarcti on 1873632 Active 2023 Saida Munoz CNM [address] [place], [address], [facility] IV 19:03:15 Body mass index 40+ - severely obese 956191065 Active 2023 Saida Munoz CNM [address] [place], [address], [facility] IV 19:03:27 Type 2 diabetes mellitus 02961361 Active 2023 Saida Munoz CNM [address] [place], [address], [employer] - [facility] IV 19:03:58 Asthma 946806056 Active 2023 Saida Munoz CNM [address] [place], [address], [employer] - [facility] IV 19:04:09 Angina pectoris 071157146 Active 2023 Saida Munoz CNM [address] [place] [address], [address], [employer] - [facility] IV 19:04:52 Major depressi ve disorder 470443443 Active 2023 Saida Munoz CNM [facility] [place], [address], [employer] - [facility] IV 19:05:54 Problem Notes None recorded. Procedures Surgical History Date Name Laterality Status Provider Name and Address Organization Details Recorded Time 025 Most Recent Mammogram completed Arvin Alvarez [address] - [facility] 10/12/2024 14:18:35 022 Date of Last Pap Smear completed Julia Quintero [address] [employer] - [facility] 09/17/2024 14:50:28 019 Date of Last Colonoscopy completed Guy Covarrubias MD [address] [place] [address], [address], [employer] [facility] 08/21/2022 16:57:54 Diagnostic colonoscopy completed Leisa Pietrusiak [address] [employer] [facility] 06/17/2021 12:07:11 cholecystectomy completed Leisa Pietrusiak [employer] [facility] 06/17/2021 12:07:21 section completed [facility] 06/17/2021 12:07:31 Removal of adenoids completed [facility] IV 06/17/2021 12:07:36 repair of umbilical hernia completed [facility] 06/17/2021 12:07:48 Hysteroscopy ablation completed [facility] IV 06/17/2021 12:07:58 operative procedure on shoulder completed [facility] 06/17/2021 12:08:09 open heart surgery completed [facility] 06/17/2021 12:08:22 Imaging Results None recorded. Procedure Notes None recorded. Medical Equipment None Reported. Allergies Allergen ID Allergen Name Allergen Category Reaction Reaction Severity Criticality Documentation Date Start Date Code Code System Note Provider Name and Address Organization Details Recorded Time 281277 vancomyci n medicatio n Not available Not available Not available 06/18/2021 29399 RxNorm Kaylan Joelmary velez, [facility] [employer] [facility] IV 13:19:41 Medications Name Sig Start Date Stop Date Status Note LastModified by Organization Details LastModified Time relion pen needles 32g x 4mm [facility] x [facility]26 completed Not Available Not Available Not Available amoxicill in 500 mg capsule TAKE 1 CAPSULE BY MOUTH THREE TIMES DAILY UNTIL GONE 08/21 completed Not Available Not Available Not Available terconazo le 0.4 % vaginal cream INSERT 1 APPLICAT ORFUL VAGINALL Y ONCE DAILY FOR 7 DAYS 09/17 completed Not Available Not Available Not Available doxycycli ne hyclate 100 mg capsule TAKE 1 CAPSULE BY MOUTH ONCE DAILY FOR 7 DAYS 09/17 completed Not Available Not Available Not Available [...] DAY ON DAY 2 THROUGH DAY 5 09/17 completed Not Available Not Available Not Available ibuprofen 800 mg tablet TAKE 1 TABLET BY MOUTH EVERY 8 HOURS NEEDED FOR PAIN 08/21 completed Not Available Not Available Not Available ofloxacin 0.3 % eye drops INSTILL 1 DROP INTO RIGHT EYE 4 TIMES DAILY 09/17 completed Not Available Not Available Not Available tizanidin e 4 mg tablet TAKE 1 TABLET BY MOUTH EVERY 8 HOURS NEEDED 09/17 completed Not Available Not Available Not Available fluconazo le 150 mg tablet TAKE 1 TABLET BY MOUTH NOW THEN REPEAT IN 3 DAYS 09/17 completed Not Available Not Available Not Available metoprolo l succinate ER 50 mg tablet,ex tended release 24 hr TAKE 1 TABLET BY MOUTH ONCE DAILY active Not Available Not Available No t Available hydrocodo ne 5 mg-acetam inophen 325 mg tablet 06/18 completed Not Available Not Available Not Available prednison e 20 mg tablet TAKE 2 TABLETS BY MOUTH ONCE DAILY FOR 5 DAYS 09/17 completed Not Available Not Available Not Available isosorbid e mononitra te ER 30 mg tablet,ex tended release 24 hr TAKE 1 TABLET BY MOUTH ONCE DAILY active Not Available Not Available No t Available clindamyc in HCl 150 mg capsule TAKE 3 CAPSULES BY MOUTH EVERY 6 HOURS FOR 10 DAYS 08/26 completed Not Available Not Available Not Available lidocaine HCl 2 % mucosal jelly 06/18 completed Not Available Not Available Not Available chlorthal idone 25 mg tablet 09/17 completed Not Available Not Available Not Available sulfameth oxazole 800 mg-trimet hoprim 160 mg tablet TAKE 1 TABLET BY MOUTH TWICE DAILY FOR 7 DAYS 09/17 completed Not Available Not Available Not Available tramadol 50 mg tablet TAKE 1 TABLET BY MOUTH EVERY 8 HOURS FOR 10 DAYS 09/17 completed Not Available Not Available Not Available ondansetr on 8 mg disintegr ating tablet DISSOLVE 1 TABLET IN MOUTH EVERY 8 HOURS NEEDED FOR NAUSEA AND VOMITING 08/26 completed Not Available Not Available Not Available cefadroxi l 500 mg capsule 08/21 completed Not Available Not Available Not Available ciclopiro x 8 % topical solution APPLY SOLUTION TOPICALL Y ONCE DAILY active Not Available Not Available No t Available prednisol one acetate 1 % eye drops,kelsea pension INSTILL 1 DROP INTO RIGHT EYE 4 TIMES DAILY 09/17 completed Not Available Not Available Not Available benzonata te 100 mg capsule TAKE 1 CAPSULE BY MOUTH THREE TIMES DAILY NEEDED FOR COUGH 08/26 completed Not Available Not Available Not Available cephalexi n 500 mg capsule TAKE 1 CAPSULE BY MOUTH 4 TIMES DAILY FOR 10 DAYS 08/26 completed Not Available Not Available Not Available metformin 1,000 mg tablet 06/18 completed Not Available Not Available Not Available nystatin 100,000 unit/gram topical cream APPLY CREAM TOPICALL Y TO AFFECTED AREA TWICE DAILY 08/21 completed Not Available Not Available Not Available [...] APPLY 1 CREAM TOPICALL Y ONCE DAILY 08/26 completed Not Available Not Available Not Available insulin syringe U-100 with needle 0.3 mL 31 gauge x 09/17 completed Not Available Not Available Not Available furosemid e 20 mg tablet TAKE 2 TABLETS BY MOUTH ONCE DAILY IN THE MORNING active Not Available Not Available No t Available ergocalci ferol (vitamin D2) 1,250 mcg (50,000 unit) capsule TAKE 1 CAPSULE BY MOUTH ONCE A WEEK FOR 14 WEEKS 09/17 completed Not Available Not Available Not Available Novolog U-100 Insulin aspart 100 unit/mL subcutane ous solution ADMINIST ER 13 UNITS IF BLOOD SUGAR IS 100-200 AND 20 UNITS IF OVER 200; MAX DOSE 20 UNITS 06/18 completed Not Available Not Available Not Available albuterol sulfate HFA 90 mcg/actua tion aerosol inhaler INHALE 2 PUFFS BY MOUTH EVERY 6 HOURS NEEDED FOR WHEEZING active Not Available Not Available No t Available cefdinir 300 mg capsule TAKE 1 CAPSULE BY MOUTH TWICE DAILY FOR 2 DAYS 08/26 completed Not Available Not Available Not Available fluticaso ne propionat e 50 mcg/actua tion nasal spray,kelsea pension USE 1 SPRAY(S) IN EACH NOSTRIL TWICE DAILY 08/26 completed Not Available Not Available Not Available naproxen 500 mg tablet TAKE 1 TABLET BY MOUTH TWICE DAILY WITH MEALS 09/17 completed Not Available Not Available Not Available progester one micronize d 100 mg capsule TAKE 1 CAPSULE BY MOUTH ONCE DAILY active Not Available Not Available No t Available amoxicill in 875 mg-potass ium clavulana te 125 mg tablet TAKE 1 TABLET BY MOUTH TWICE DAILY FOR 7 DAYS 09/17 completed Not Available Not Available Not Available rosuvasta tin 20 mg tablet TAKE 1 TABLET BY MOUTH ONCE DAILY active Not Available Not Available No t Available duloxetin e 30 mg capsule,d elayed release TAKE 1 CAPSULE BY MOUTH ONCE DAILY active Not Available Not Available No t Available duloxetin e 60 mg capsule,d elayed release TAKE 1 CAPSULE BY MOUTH ONCE DAILY 09/17 completed Not Available Not Available Not Available metoprolo l tartrate 06/18 completed metoprol ol tartrate RxNorm: 623970 Allow Substitu tion: False Refill Denied: No Refill DateOccu rred: 11/15/19 Edited by: Guy Gomez) on 11/15/19 Stopped by: Guy Gomez) on Not Available Not Available Not Available chlorthal idone 06/18 completed chlortha lidone RxNorm: 2409 Allow Substitu tion: False Refill Denied: No Refill DateOccu rred: 11/15/19 Edited by: Guy Gomez) on 11/15/19 Stopped by: Guy Gomez) on Not Available Not Available Not Available metformin 06/18 completed metFORMI N RxNorm: 085920 Allow Substitu tion: False Refill Denied: No Refill DateOccu rred: 11/15/19 21 Edited by: Guy Gomez) on 11/15/19 Stopped by: Guy Gomez) on Not Available Not Available Not Available gabapenti n 08/21 completed gabapent in RxNorm: 3778408 Allow Substitu tion: False Refill Denied: No Refill DateOccu rred: 11/15/19 Edited by: Guy Gomez) on 11/15/19 Stopped by: Guy Gomez) on Not Available Not Available Not Available rosuvasta tin 06/18 completed rosuvast atin RxNorm: 286848 Allow Substitu tion: False Refill Denied: No Refill DateOccu rred: 11/15/19 Edited by: Gyu Gomez) on 11/15/19 Stopped by: Guy Gomez) on Not Available Not Available Not Available Essential Woman 50 Plus active Not Available Not Available Not Available Lantus Solostar U-100 Insulin 100 unit/mL (3 mL) subcutane ous pen 06/18 completed Not Available Not Available Not Available pen needle, diabetic 32 gauge x USE 1 IN THE MORNING AND 1 IN THE EVENING 08/26 completed Not Available Not Available Not Available Contour Next Test Strips USE 1 STRIP TO CHECK GLUCOSE FIVE TIMES DAILY 08/26 completed Not Available Not Available Not Available Contour Next EZ Meter USE DIRECTED 08/26 completed Not Available Not Available Not Available Farxiga 10 mg tablet TAKE 1 TABLET BY MOUTH ONCE DAILY active Not Available Not Available No t Available Jardiance 10 mg tablet TAKE 1 TABLET BY MOUTH ONCE DAILY 09/17 completed Not Available Not Available Not Available Spiriva Respimat 2.5 mcg/actua tion solution for inhalatio n INHALE 2 SPRAY(S) BY MOUTH ONCE DAILY active Not Available Not Available No t Available Humulin R U-500 (Conc) Insulin Kwikpen [...] Not Available Not Available No t Available Dexcom G6 Fisheries Specialist USE DIRECTED 08/26 completed Not Available Not Available Not Available Dexcom G6 Transmitt er device USE TO MONITOR GLUCOSE; CHANGE EVERY 90 DAYS 08/26 completed Not Available Not Available Not Available Baqsimi 3 mg/actuat ion nasal spray USE INTRANAS ALLY ONCE NEEDED A SINGLE DOSE 08/26 completed Not Available Not Available Not Available FreeStyle Pete 2 Sensor kit 08/26 completed Not Available Not Available Not Available FreeStyle Pete 2 [place] 08/26 completed Not Available Not Available Not Available Ozempic 1 mg/dose (4 mg/3 mL) subcutane ous pen injector INJECT 1 MG SUBCUTAN EOUSLY ONCE A WEEK 08/26 completed Not Available Not Available Not Available Paxlovid 300 mg (150 mg x 2)-100 mg tablets in a dose pack TAKE PER PACKAGE DIRECTIO NS 08/21 completed Not Available Not Available Not Available Ozempic 2 mg/dose (8 mg/3 mL) subcutane ous pen injector INJECT 2MG SUBCUTAN EOUSLY ONCE WEEKLY FOR 90 DAYS 08/26 completed Not Available Not Available Not Available Mounjaro 7.5 mg/0.5 mL subcutane ous pen injector INJECT 1 SYRINGE SUBCUTAN EOUSLY ONCE A WEEK 09/17 completed Not Available Not Available Not Available Mounjaro 5 mg/0.5 mL subcutane ous pen injector INJECT 1 SYRINGE SUBCUTAN EOUSLY ONCE A WEEK 09/17 completed Not Available Not Available Not Available Mounjaro 10 mg/0.5 mL subcutane ous pen injector INJECT 1 SYRINGE SUBCUTAN EOUSLY ONCE A WEEK 09/17 completed Not Available Not Available Not Available Mounjaro 12.5 mg/0.5 mL subcutane ous pen injector INJECT 1 SYRINGE SUBCUTAN EOUSLY ONCE A WEEK active Not Available Not Available No t Available FreeStyle Pete 3 Plus Sensor device USE TO MONITOR GLUCOSE active Not Available Not Available No t Available Vitals Date Recorded Body height Body mass index (BMI) Body weight Systolic And Diastolic Provider Name and Address Organization Details Last Updated DateTime 06/18/2021 162.56 cm 39 kg/m2 775976.47 g 136/80 mm[Hg] Kaylan Maldonado [facility] 06/18/2021 13:25:55 Date Recorded Body height Body mass index (BMI) Body weight Body temperature Systolic And Diastolic Provider Name and Address Organization Details Last Updated DateTime 08/21/2022 162.56 cm 38.4 kg/m2 604954. 69 g 97 [degF] 130/78 mm[Hg] Chantel Benavides [facility] 16:34:34 Date Recorded Body weight Body mass index (BMI) Body height Systolic And Diastolic Provider Name and Address Organization Details Last Updated DateTime 08/27/2023 620252.84 g 39.7 kg/m2 162.56 cm 130/70 mm[Hg] Becky Lam [facility] [facility] 08/27/2023 17:49:48 Date Recorded Body weight Body mass index (BMI) Body height Systolic And Diastolic Provider Name and Address Organization Details Last Updated DateTime 09/17/2024 325749.91 g 37.9 kg/m2 162.56 cm 128/78 mm[Hg] Julia Leon [facility] [employer] [facility] 09/17/2024 14:53:42 Social History Question Answer Notes LastModified by Organizat ion Details LastModified Time Tobacco Smoking Status Former Smoker Chantel Benavides [facility] [employer] [facility] 08/21/2022 16:18:36 Are You Blind Or Do You Have Difficulty Seeing? No [email or web address] Information not available 08/21/2022 Are You Deaf Or Do You Have Serious Difficulty Hearing? No [email or web address] Information not available 08/21/2022 What Type Of Diet Are You Following? REGULAR [email or web address] Information not available 08/21/2022 When Did You Quit Smoking? 6-10yearssince lastjavi [email or web address] Information not available 09/17/2024 How Many Children Do You Have? 2 [email or web address] Information not available 06/17/2021 Are There Any Occupational Health Risks Where You Work? Disability Information not available 08/21/2022 What Is Your Relationship Status? [email or web address] Information not available 08/21/2022 Are You Sexually Active? Yes [email or web address] Information not available 08/21/2022 At What Age Did You Start Smoking Tobacco? 10 Information not available 08/27/2023 How Many Years Have You Smoked Tobacco? 43 [email or web address] Information not available 08/27/2023 Sex: Unknown Functional Status Question Answer Note LastModified by Organizat ion Details LastModified Time Do you use any illicit or recreational drugs? No Information not available 08/27/2023 What is your level of alcohol consumption? None [email or web address] Information not available 08/21/2022 Are you currently employed? Yes Information not available 08/21/2022 Do you or have you ever used e-cigarettes or vape? Never used electronic cigarettes [email or web address] Information not available 08/21/2022 What is your exercise level? None [email or web address] Information not available 08/21/2022 Mental Status None recorded. Family History Relationship Description Onset Age of this Age Resolved Age Notes LastModified by Organization Details LastModified Time Maternal Aunt Malignant neoplasm of breast x2 [facility] Not available 2024 14:40:26 Father Malignant neoplasm of prostate [facility] Not available 2024 14:40:26 Unspecified Relation Malignant neoplasm of skin runs in family [facility]-27 Not available 09/17/2024 14:40:26 Unspecified Relation Malignant neoplasm of breast [email or web address] Not available 16:18:23 Medical History Condition Response Kidney Disease Y Heart Attack Y Heart Disease Y Gynecological History Statement/Question Response Date of last HPV 06/19/2021 Date of Last Colonoscopy 08/03/2018 Date of Last Pap Smear 06/19/2021 Most Recent Mammogram 10/01/2024 Current Control Method Menopause Age at Menarche 10 Obstetrics History GPAL:G 2 P 2 0 0 2 Type Value Full Term 2 Living 2 Total 2 Past Encounters Encounter ID Performer Location Encounter Start Date Encounter Closed Date Diagnosis/Indication Diagnosis SNOMED-CT Code Diagnosis ICD10 Code Diagnosis IMO Codes Diagnosis Note [id number] Guy Covarrubias MD [facility] [address] [place] [address] 06/18/2021 11:54:44 07/16/2021 14:39:36 Gynecologic examination 80917503 Z01.89 y.o. here for annual exam. - Pap up to date from , discussed natural course of HPV infection, no new exposures. Plan to repeat cotesting in years. - Routine labs done with PCP - Mammo last year WNL, discussed different guideline recommenda tidavida, pt without family hx, would like to proceed with q2yr screening, repeat next year // rx provided - Colonoscop y done, can continue q10 years screens - DEXA at age 65 or after 50 if you have risk factors for osteoporos is - Depression screen NEG - BMI counseling , diet and exercise reviewed - RTO for annual or PRN Screening for malignant neoplasm of cervix 858762599 Z12.4 Screening for malignant neoplasm of breast 388738159 Z12.39 Menopausal symptom 39616 002 N95.1 we sugested daily or days 1-12 [id number] Guy Covarrubias MD [facility] [address] [place] [address] 08/21/2022 16:11:46 08/22/2022 09:24:30 Gynecologic examination 58152542 Z01.89 y.o. here for annual exam. - Pap up to date from , discussed natural course of HPV infection, no new exposures. Plan to repeat cotesting in years. - Routine labs done with PCP - Mammo last year WNL, discussed different guideline recommenda tidavida, pt without family hx, would like to proceed with q2yr screening, repeat next year // rx provided - Colonoscop y done, can continue q10 years screens - DEXA at age 65 or after 50 if you have risk factors for osteoporos is - Depression screen NEG - BMI counseling , diet and exercise reviewed - RTO for annual or PRN Screening for malignant neoplasm of breast 260739768 Z12.31 Depression screening 171 628682 Z13.31 [id number] Saida Munoz CNM [facility] [address] [place] [address] 08/27/2023 17:08:48 08/27/2023 20:49:24 Gynecologic examination 07326681 Z01.419 62 y.o. here for annual exam.- Pap up to date from 2021; NILM/HPV negative , discussed natural course of HPV infection, no new exposures. Plan to repeat cotesting in 2 years.- Routine labs done with PCP- Mammo last year WNL, discussed different guideline recommenda tions, pt without family hx rx provided- Colonoscop y done, can continue q10 years screens- DEXA at age 65 or after 50 if you have risk factors for osteoporos is - will discuss w/PCP- Depression screen positive for mild depression - managed by PCP and on medication - BMI counseling , diet and exercise reviewed- RTO for annual or PRN- continue care w/PCP - next appt in October Screening for malignant neoplasm of breast 535774303 Z12.31 Pt will call to schedule Depression screening 171 Z13.31 refer to intake screening Vaginal discharge 415442 006 N89.8 Body mass index 40+ - severely obese 249255469 Z68.41 Weight loss discussed in detail.Agg ressive Lifestyle Changes: Diet: Adopt a healthy eating plan, such as the Dietary Approaches to Stop Hypertensi on (DASH) diet or the Mediterran edilma diet. These emphasize vegetables , fruits, whole grains, and lean protein while limiting sugar, salt, and unhealthy fats. Physical Activity: Aim for at least 30 minutes of exercise daily, such as brisk walking. Find opportunit ies to increase activity throughout the day. Weight Loss: Losing 7% of body weight can improve insulin resistance , blood pressure, and diabetes Stress Management : Consider physical activity, meditation to handle stress 2. [id number] Guy Covarrubias MD [facility] [address] [place] [address] 09/17/2024 14:40:25 09/28/2024 15:16:33 Gynecologic examination 64800446 Z01.419 63 y.o. here for annual exam.- Pap up to date from , discussed natural course of HPV infection, no new exposures. Plan to repeat cotesting in years.- Routine labs done with PCP- Mammo last year WNL, discussed different guideline recommendcharlotte pruitt, pt without family hx, would like to proceed with q2yr screening, repeat next year // rx provided- Colonoscop y done, can continue q10 years screens- DEXA at age 65 or after 50 if you have risk factors for osteoporos is- Depression screen NEG- BMI counseling , diet and exercise reviewed- RTO for annual or PRN Screening for malignant neoplasm of cervix 825354356 Z12.4 Screening for malignant neoplasm of breast 401125374 Z12.31 Depression screening 171 Z13.31 refer to intake screening Hormone re placement therapy 078526619 Z79.890 Health Concerns Section Related Observation LastModified by Organization Detai ls LastModified Time None Recorded Concern Status LastModified by Organization Details LastModified Time None Recorded Advance Directives Directive None Recorded Payers Insurance Date Sequence Insurance Name Policy Number Policy Roman Covered Member ID Roman Member ID Guarantor Name 08/25/2024 3 [place] [facility] Lynn Whitt [id number] Lynn Whitt 08/27/2024 1 [facility] Lynn Whitt [id number] Lynn Whitt 10/13/2024 1 [facility] (MEDICARE REPLACEMENT HMO) [id number] Lynn Whitt [id number] Lynn Whitt Notes Date Note Type Note Provider Name and Address Organization Details Recorded Time 2 text/html Annual GYNReported by PatientGenitourinary symptomsFor menstrual cycle, patient reportsnormal menses. For urinary symptoms, patient reportsno hematuriaandno incontinence. For vulva, patient reportsno genital lesion. For vagina, patient reportsnormal vaginal discharge.Breast symptomsFor breast, patient reportsno breast pain,no breast lump, andno nipple discharge.Endocrine symptomsFor sexual complaints, patient reportsno sexual complaints,no pain during intercourse, andnormal libido. For menopausal symptoms, patient reportsno menopausal symptomsandnormal vaginal lubrication.Psychological symptomsFor psychological symptoms, patient reportsno depression,no anxiety, andno pmdd. Guy Covarrubias MD [facility] [place], [address], [facility] 07/15/2021 18:57:13 3 text/html Annual GYNReported by PatientROS as noted in the HPI Guy Covarrubias MD [address] [place] [address], [phone], [facility] 08/21/2022 17:03:42 4 text/html Annual GYNReported by PatientGenitourinary symptomsFor urinary symptoms, patient reportsno hematuriaandno incontinence. For vulva, patient reportsno genital lesion. For vagina, patient reportsnormal vaginal discharge.Breast symptomsFor breast, patient reportsno breast pain,no breast lump, andno nipple discharge.Endocrine symptomsFor sexual complaints, patient reportsno sexual complaints,no pain during intercourse, andnormal libido. For menopausal symptoms, patient reportsno menopausal symptoms.Psychological symptomsFor psychological symptoms, patient reportsdepressionbut reportsno anxietyandno pmdd. Patient is here for annual exam, she is having some vaginal itching today. Saida Munoz CNM [address] [facility], [place], [address], [facility] 08/27/2023 19:19:47 5 text/html Annual GYNReported by PatientROS as noted in the HPI The patient verbally consented to documentation via virtual scribe for this encounter. Lynn is a 63yr old here today for an annual well visit. LMP . Last Pap . Last Colonoscopy . Pt has no other complaints or concerns for today. PHQ9 is 4 She states that her bowel movements are regular. Guy Covarrubias MD [address] [facility], [place], [address], [facility] 09/26/2024 18:16:03 OBGyn Episode No OBEpisode recorded.
--- OUTSIDE RECORDS SUMMARY | 2025-03-29 16:53 | XMS_ITS | Data Portability ---
Author Organization [facility] Address [address] [place] [address] Care Team Providers Care Precision Filer Hand Name Role Phone SUZI FROST Primary Care Provider [phone] Assessment Encounter Date Assessment Date Assessment LastModified by Organization Details LastModified Time 11/03/2019 11/03/2019 gets lightheaded and dizzy, has fluctuating blood sugars making her lightheaded. Has been using her CPAP all night every night with improved energy. [email or web address] Not available 11/07/2019 19:44:00 01/17/2020 01/17/2020 normal mammogram January of 2019. Not available 01/23/2020 14:15:41 03/06/2020 03/06/2020 KAMRAN Ochoa [email or web address] Not available 03/06/2020 16:54:54 Plan of Treatment Reminders Order Date Submit Date Provider Last Modified By Organization Details Last Modified Time Details Appointments None recorded. Lab culture, urine 2020 021 [facility], [address] [place] [address], [address], [place], [address], 20:09:11 urinalysis , dipstick 2020 021 [email or web address] In-Office Order, Internal Use Only DO Not Attach Compendium DO Not Attach Compendium, Do Not Delete/merge, [id number] 09:40:15 Referral None recorded. Procedures None recorded. Surgeries None recorded. Imaging None recorded. Medication Orders ciprofloxa viktoria 500 mg tablet 2020 021 INTERFACE [facility], [address] [place], [address], 1 16:00:08 nystatin 100,000 unit/gram topical cream 2019 020 INTERFACE [facility], [address] [place], [address], 0 16:07:51 Constulose 10 gram/15 mL oral solution 2019 [email or web address] [address] [place] [address], [address], 0 09:50:59 tolnaftate 1 % topical powder 2019 020 [email or web address] [facility], [address] [place] [address], [id number], 1 15:43:20 gabapentin 300 mg capsule 2019 020 [email or web address] [facility], [facility] [place], [address], 0 10:39:02 duloxetine 30 mg capsule,de layed release 2019 020 INTERFACE [facility], [address] [place] [address], [address], 0 19:44:04 Patient TargetsNo targets recorded. Patient Instructions Encounter Date Encounter Id Patient Instructions Last Modified By Organization Details Last Modified Time 11/03/2019 [id number] sleep apnea: car e instructions [email or web address] Not available 11/07/2019 19:58:37 01/17/2020 [id number] Peripheral Arterial Disease (PAD): Care Instructions [email or web address] Not available 01/23/2020 14:15:42 constipation: care instructions [email or web address] Not available 01/17/2020 10:40:57 Preventing Depression From Coming Back: Care Instructions [email or web address] Not available 01/23/2020 14:15:42 vaginal yeast infection: care instructions [email or web address] Not available 01/23/2020 13:48:05 heart failure: care instructions [email or web address] Not available 01/23/2020 14:15:42 learning about heart failure [email or web address] Not available 01/23/2020 14:15:42 05/29/2020 [id number] Female Urinary Tract Infection (UTI): Care Instructions [email or web address] Not available 05/29/2020 15:59:59 Reason for Referral None Reported. Results Created Date Observation Date Name Description Value Unit Range Abnormal Flag Note LastModifiedBy Organization Detail LastModifiedTime 05/16/19 21 05/18/2020 cultu re, urine urine culture, routine Final report abnormal Not Available [facility] ([facility]) [address] [facility], [place], [address], 05/18/2020 20:09:11 05/16/19 21 05/18/2020 cultu re, urine result 1 Escher ichia coli abnormal 50,00 0-100 ,000 colon y formi ng units per mL Cefaz huan <=4 ug/mL Cefaz huan with an IESHA <=16 predi cts susce ptibi lity to the oral agent s cefac queta, cefdi iliana, cefpo doxim e, cefpr ozil, cefur oxime , cepha lexin , and lorac arbef when used for thera py of uncom plica corine urina ry tract infec tions due to E. coli, Klebs iella pneum oniae , and Prote us mirab ilis. Not Available [facility] ([facility]) [address] [facility], [place], [address], 05/18/2020 20:09:11 05/16/19 21 05/18/2020 cultu re, urine antimicrobia l susceptibili ty Commen t S = Susce ptibl e; I = Inter media te; R = Resis tant P = Posit willie; N = Negat willie MICS are expre ssed in micro grams per mL Antib iotic RSLT# 1 RSLT# 2 RSLT# 3 RSLT# 4 Amoxi cilli n/Cla vulan ic Acid S Ampic illin S Cefep lianna S Ceftr iaxon e S Cefur oxime S Cipro floxa viktoria S Ertap enem S Genta micin S Imipe nem S Levof loxac in S Merop enem S Nitro furan toin S Piper acill in/Ta zobac dave S Tetra cycli ne S Tobra mycin S Trime thopr im/Rodriguez lfa S Not Available [facility] ([facility]) [address], [place], [address], 05/18/2020 20:09:11 05/16/19 21 05/16/2020 urina lysis , dipst ick Leukocytes Small Not Available In-Offi ce Order Internal Use Only DO Not Attach Compendium DO Not Attach Compendium, Do Not Delete/merge, 05/16/2020 13:47:45 05/16/19 21 05/16/2020 urina lysis , dipst ick Nitrite positi ve Not Available In-Office Order Internal Use Only DO Not Attach Compendium DO Not Attach Compendium, Do Not Delete/merge, [id number] 05/16/2020 13:47:45 05/16/19 21 05/16/2020 urina lysis , dipst ick Urobilinogen .2 Not Available In-Of fice Order Internal Use Only DO Not Attach Compendium DO Not Attach Compendium, Do Not Delete/merge, 05/16/2020 13:47:45 05/16/19 21 05/16/2020 urina lysis , dipst ick Protein Trace Not Available In-Office Order Internal Use Only DO Not Attach Compendium DO Not Attach Compendium, Do Not Delete/merge, 05/16/2020 13:47:45 05/16/19 21 05/16/2020 urina lysis , dipst ick pH 6.0 Not Available In-Office Order Internal Use Only DO Not Attach Compendium DO Not Attach Compendium, Do Not Delete/merge, 05/16/2020 13:47:45 05/16/19 21 05/16/2020 urina lysis , dipst ick Blood Modera te Not Available In-Office Order Internal Use Only DO Not Attach Compendium DO Not Attach Compendium, Do Not Delete/merge, [facility] 05/16/2020 13:47:45 05/16/19 21 05/16/2020 urina lysis , dipst ick Specific Dow 1.015 Not Available In-Off ice Order Internal Use Only DO Not Attach Compendium DO Not Attach Compendium, Do Not Delete/merge, [facility] 05/16/2020 13:47:45 05/16/19 21 05/16/2020 urina lysis , dipst ick Ketone Negati ve Not Available In-Office Order Internal Use Only DO Not Attach Compendium DO Not Attach Compendium, Do Not Delete/merge, [facility] 05/16/2020 13:47:45 05/16/19 21 05/16/2020 urina lysis , dipst ick Bilirubin Negati ve Not Available In-Office Order Internal Use Only DO Not Attach Compendium DO Not Attach Compendium, Do Not Delete/merge, [facility] 05/16/2020 13:47:45 05/16/19 21 05/16/2020 urina lysis , dipst ick Glucose 500 Not Available In-Office Order Internal Use Only DO Not Attach Compendium DO Not Attach Compendium, Do Not Delete/merge, [facility] 05/16/2020 13:47:45 05/16/19 21 05/16/2020 urina lysis , dipst ick Appearance Cloudy Not Available In-Offi ce Order Internal Use Only DO Not Attach Compendium DO Not Attach Compendium, Do Not Delete/merge, [facility] 05/16/2020 13:47:45 05/16/19 21 05/16/2020 urina lysis , dipst ick Color Yellow Not Available In-Office Order Internal Use Only DO Not Attach Compendium DO Not Attach Compendium, Do Not Delete/merge, [facility] 05/16/2020 13:47:45 11/21/19 20 11/18/2019 CT, chest , w/o contr ast No observ ation record ed. [facility] Not Available 12/12 08:58:14 12/31/[address], abdom en + pelvi s, w/ contr ast No observ ation record ed. [address], [place], [address], 01/12/2020 08:39:39 02/03/2002/03/2020 XR, hand, 3 or more view No observ ation record ed. [facility] ([facility]) [address] [place], [address], 02/19/2020 13:47:38 02/03/2002/03/2020 XR, knee, 4 or more view No observ ation record ed. [facility] ([facility] [address] [place], [address], 02/19/2020 13:47:37 02/03/2002/03/2020 XR, knee, 4 or more view No observ ation record ed. [facility] ([facility] [address] [place], [address], 02/19/2020 13:47:37 02/09/2002/09/2020 MAMMO , scree joan, bilat eral No observ ation record ed. [facility] [address] [place], [address], 02/19/2020 13:47:37 05/25/19 21 05/25/2020 XR, lumba r spine , 2 view No observ ation record ed. [facility] [address] [place], [address], 06/03/2020 12:59:30 Result Notes None recorded. Problems Name Problem SNOMED Code Status Onset Date Resolution Date Notes Provider Name and Address Organization Details Recorded Time Coronary arterioscleros is 80884870 Active 2018 NHUNG AWAN Attn: Elia pop,[address] [facility], [place], [address], [facility] 9 15:34:34 Hyperlipidemia 61131036 Active 2018 NHUNG AWAN Attn: Elia pop,[address] [facility], [place], [address], [place] - [facility] 9 15:34:40 Type 2 diabetes mellitus 84018917 Active 2018 NHUNG AWAN Attn: Elia pop,[address] [facility], [place], [address], [place] - [facility] 9 15:34:45 Constipation 06279812 Active 2018 NHUNG AWAN Attn: Elia pop,[address] [facility], [place], [address], [place] - [facility] 9 15:34:50 Essential hypertension 99664102 Active 2018 NHUNG AWAN Attn: Elia pop,[address] [facility], [place], [address], [place] - [facility] 9 15:35:13 History of myocardial infarction 079022940 Active 2018 NHUNG AWAN Attn: Elia pop,[address] [facility], [place], [address], [place] - [facility] 9 15:35:23 Chronic kidney disease 815733818 Active 2018 NHUNG AWAN Attn: Elia pop,[address] [facility], [place], [address], [place] - [facility] 9 15:36:00 Neuropathy 280705022 Active 2019 Gerri Juarez [place] null, [place] - [facility] 0 11:50:02 Arthritis 5810843 Active 2019 Foot Gerri Juarez [place], [place] - [facility] 0 11:50:13 Sleep apnea 00270558 Active 2019 Gerri Juarez [place] null, [place] - [facility] 0 11:50:29 Problem Notes None recorded. Procedures Surgical History Date Name Laterality Status Provider Name and Address Organization Details Recorded Time 02/09/20 Date of Last Mammogram completed ERIN Ty - [facility] 03/06/2020 15:15:29 03/25/20 19 colonoscopy completed Gerri Juarez [facility] 04/22/2019 14:08:25 01/16/20 19 Date of Last Pap Smear completed Dominick Galaviz [facility] 01/15/2019 09:57:28 04/01/20 18 open heart surgery completed Shante Amin MA [facility] 11/02/2018 15:01:22 01/21/19 87 cholecystectomy completed Dominick Galaviz MA [facility] 01/15/2019 10:01:53 01/21/19 87 Appendectomy completed Dominick Galaviz MA [facility] 01/15/2019 10:02:02 delivery completed Shante Amin [facility] 11/02/2018 15:01:42 delivery completed Shante Amin [facility] 11/02/2018 15:01:44 Hernia repair w/mesh completed Shante Amin [facility] 11/02/2018 15:02:23 partial repair of rotator cuff completed Shante Amin [facility] 11/02/2018 15:03:01 Imaging Results None recorded. Procedure Notes None recorded. Medical Equipment None Reported. Allergies No known drug allergies Medications Name Sig Start Date Stop Date Status Note LastModified by Organization Details LastModified Time Prescript ion - Prior Authoriza tion Request 05/29 completed Not Available Not Available Not Available multivita min tablet Take 1 tablet every day by oral route. 05/29 completed Not Available Not Available Not Available atorvasta tin 40 mg tablet Take 1 tablet every day by oral route. active Not Available Not Available No t Available metformin 500 mg tablet Take 1 tablet twice a day by oral route. 01/15 completed Not Available Not Available Not Available terconazo le 0.4 % vaginal cream INSERT 1 APPLICAT ORFUL VAGINALL Y ONCE DAILY FOR 7 DAYS active Not Available Not Available No t Available doxycycli ne hyclate 100 mg capsule TAKE 1 CAPSULE BY MOUTH ONCE DAILY FOR 7 DAYS active Not Available Not Available No t Available clindamyc in HCl 300 mg capsule Take 1 capsule 3 times a day by oral route with meals. 05/29 completed Not Available Not Available Not Available albuterol sulfate 2.5 mg/3 mL (0.083 %) solution for nebulizat ion USE 1 VIAL IN NEBULIZE R EVERY 4 TO 6 HOURS NEEDED FOR SHORTNES S OF BREATH FOR WHEEZING active Not Available Not Available No t Available Tab-A-Vit e tablet 05/29 completed Not Available Not Available Not Available azithromy viktoria 250 mg tablet TAKE 2 TABLETS BY MOUTH ON DAY 1, AND THEN TAKE 1 TABLET BY MOUTH ONCE A DAY ON DAY 2 THROUGH DAY 5 active Not Available Not Available No t Available fluconazo le 150 mg tablet TAKE 1 TABLET BY MOUTH NOW THEN REPEAT IN 3 DAYS active Not Available Not Available No t Available metoprolo l succinate ER 50 mg tablet,ex tended release 24 hr TAKE 1 TABLET BY MOUTH ONCE DAILY active Not Available Not Available No t Available isosorbid e mononitra te ER 30 mg tablet,ex tended release 24 hr TAKE 1 TABLET BY MOUTH ONCE DAILY active Not Available Not Available No t Available metronida zole 500 mg tablet Take 1 tablet every 8 hours by oral route. 05/29 completed Not Available Not Available Not Available ciproflox acin 500 mg tablet Take 1 tablet every 12 hours by oral route. active Not Available Not Available No t Available sulfameth oxazole 800 mg-trimet hoprim 160 mg tablet TAKE 1 TABLET BY MOUTH TWICE DAILY FOR 7 DAYS active Not Available Not Available No t Available tramadol 50 mg tablet TAKE 1 TABLET BY MOUTH EVERY 8 HOURS FOR 10 DAYS active Not Available Not Available No t Available triamcino lone acetonide 0.1 % topical cream APPLY CREAM EXTERNAL LY TO AFFECTED AREA TWICE DAILY NEEDED active Not Available Not Available No t Available Macrobid 100 mg capsule Take 1 capsule every 12 hours by oral route. 05/29 completed Not Available Not Available Not Available ciclopiro x 8 % topical solution APPLY SOLUTION TOPICALL Y ONCE DAILY active Not Available Not Available No t Available dexametha sone 1 mg tablet TAKE 1 TABLET BY MOUTH NEEDED AT BEDTIME FOR 1 DAY (TAKE AT 10 PM THE NIGHT BEFORE 8 AM CORTISOL ) 05/29 completed Not Available Not Available Not Available cephalexi n 500 mg capsule 05/29 completed Not Available Not Available Not Available metformin 1,000 mg tablet Take 1 tablet twice a day by oral route. active Not Available Not Available No t Available nystatin 100,000 unit/gram topical cream APPLY CREAM TOPICALL Y TO AFFECTED AREA TWICE DAILY NEEDED active Not Available Not Available No t Available nystatin- triamcino lone 100,000 unit/g-0. 1 % topical cream APPLY CREAM TOPICALL Y TO AFFECTED AREA TWICE DAILY IN THE MORNING AND IN THE EVENING 03/06 completed 03/06/20 [facility] will not pay for the combo medicati on. DG RMA Not Available Not Available Not Available gabapenti n 300 mg capsule TAKE 1 CAPSULE BY MOUTH TWICE DAILY AND THEN 2 AT BEDTIME active Not Available Not Available No t Available tolnaftat e 1 % topical powder Apply 1 applicat ion twice a day by topical route as needed. 05/29 completed Not Available Not Available Not Available furosemid e 20 mg tablet TAKE 2 TABLETS BY MOUTH ONCE DAILY IN THE MORNING active Not Available Not Available No t Available gabapenti n 100 mg capsule Take 1 capsule 3 times a day by oral route. 05/29 completed Not Available Not Available Not Available ergocalci ferol (vitamin D2) 1,250 mcg (50,000 unit) capsule TAKE 1 CAPSULE BY MOUTH ONCE A WEEK FOR 14 WEEKS active Not Available Not Available No t Available Novolog U-100 Insulin aspart 100 unit/mL subcutane ous solution Inject 13 units 3 times a day by subcutan eous route with meals. 05/29 completed Not Available Not Available Not Available albuterol sulfate HFA 90 mcg/actua tion aerosol inhaler INHALE 2 PUFFS BY MOUTH EVERY 6 HOURS NEEDED FOR WHEEZING active Not Available Not Available No t Available ketoconaz ole 2 % topical cream active Not Available Not Available Not Available ondansetr on 4 mg disintegr ating tablet active Not Available Not Available Not Available cefdinir 300 mg capsule TAKE 1 CAPSULE BY MOUTH TWICE DAILY FOR 2 DAYS active Not Available Not Available No t Available progester one micronize d 100 mg capsule TAKE 1 CAPSULE BY MOUTH ONCE DAILY FOR 12 DAYS active Not Available Not Available No t Available amoxicill in 875 mg-potass ium clavulana te 125 mg tablet TAKE 1 TABLET BY MOUTH TWICE DAILY FOR 7 DAYS active Not Available Not Available No t Available rosuvasta tin 20 mg tablet TAKE [...] Mini Pen Needle 31 gauge x 3/16 USE DIRECTED 4 TIMES DAILY active Not Available Not Available No t Available lactulose 10 gram/15 mL oral solution TAKE 15 ML BY MOUTH ONCE DAILY 2019 active Not Available Not Available Not Avai lable Byetta 5 mcg/dose (250 mcg/mL)1. 2 mL subcutane ous pen injector INJECT 5 MCG SUBCUTAN EOUSLY TWICE DAILY BEFORE MEALS active Not Available Not Available No t Available atorvasta tin 01/12 completed Not Available Not Available Not Available aspirin active Not Available Not Avail able Not Available metoprolo l succinate 01/15 completed Not Available Not Available Not Available BD Ultra-Fin e Short Pen Needle 31 gauge x 5/16 active Not Available Not Available Not Available BD Lo-Dose Micro-Fin e IV 1/2 mL 28 gauge x 1/2 syringe USE TO ADMINIST ER INSULIN FOUR TIMES DAILY active Not Available Not Available No t Available Calcium with Vitamin D 600 mg-10 mcg (400 unit) tablet Take 1 tablet twice a day by oral route. 2018 active Not Available Not Available Not Avai lable Probiotic 01/12 completed Not Available Not Available Not Available OneTouch Verio test strips USE 1 STRIP TO CHECK GLUCOSE 4 TIMES DAILY BEFORE MEAL(S) active Not Available Not Available No t Available Farxiga 10 mg tablet TAKE 1 TABLET BY MOUTH ONCE DAILY active Not Available Not Available No t Available Jardiance 10 mg tablet TAKE 1 TABLET BY MOUTH ONCE DAILY active Not Available Not Available No t Available OneTouch Verio Meter active Not Available Not Available Not Available Humulin R U-500 (Conc) Insulin Kwikpen 500 unit/mL (3 mL) subcutane ous INJECT 90 UNITS SUBCUTAN EOUSLY BEFORE BREAKFAS T, 55 UNITS BEFORE LUNCH, AND 40 UNITS BEFORE DINNER MAX OF 185 UNITS DAILY PATIENT NEEDS APPOINTM ENT FOR FURTHER REFILLS active Not Available Not Available No t Available Basaglar KwikPen U-100 Insulin 100 unit/mL (3 mL) subcutane ous INJECT 55 UNITS SUBCUTAN EOUSLY AT BEDTIME 2020 active Not Available Not Available Not Avai lable Linzess 72 mcg capsule TAKE 1 CAPSULE BY MOUTH ONCE DAILY active Not Available Not Available No t Available BD Ultra-Fin e Micro Pen Needle 32 gauge x 1/4 USE 1 SUBCUTAN EOUSLY IN THE MORNING AND 1 IN THE EVENING DIRECTED active Not Available Not Available No t Available Admelog U-100 Insulin lispro 100 unit/mL subcutane ous solution active Not Available Not Available Not Available OneTouch Ultra Blue Test Strip USE 1 STRIP TO CHECK GLUCOSE 4 TIMES DAILY 2019 active Not Available Not Available Not Avai lable Toujeo Max U-300 SoloStar 300 unit/mL (3 mL) subcutane ous insulin pen Inject 55 units by subcutan eous route at bedtime. 05/29 completed Not Available Not Available Not Available OneTouch Delica Plus Lancet 33 gauge USE DIRECTED 4 TIMES DAILY BEFORE MEAL(S) active Not Available Not Available No t Available Fluzone Quad (PF) 60 mcg (15 mcg x 4)/0.5 mL IM syringe 05/29 completed Not Available Not Available Not Available Tab-A-Vit e 400 mcg tablet TAKE 1 TABLET BY MOUTH ONCE DAILY 05/29 completed Not Available Not Available Not Available [...] FreeStyle Pete 3 Plus Sensor device USE DIRECTED TO MONITOR GLUCOSE AND CHANGE EVERY 15 DAYS active Not Available Not Available No t Available Vitals Date Recorded Body height Body mass index (BMI) Body weight Oxygen saturation Heart rate Body temperature Systolic And Diastolic Provider Name and Address Organization Details Last Updated DateTime 01/25/202 1 162.56 cm 37.4 kg/m2 42684.4 2 g 97 % 74 /min 96.8 [degF] 130/74 mm[Hg] Char Fisher [facility] 1 15:47:14 Date Recorded Body height Provider Name an d Address Organization Details Last Updated DateTime 11/03/2019 162.56 cm Marlene Chowdhury MA [facility] 2019 14:58:23 Date Recorded Body height Provider Name an d Address Organization Details Last Updated DateTime 01/17/2020 162.56 cm Gerri Juarez MA [facility] 01/17/2020 10:19:02 Date Recorded Body height Provider Name an d Address Organization Details Last Updated DateTime 03/06/2020 162.56 cm Hui Corrales MA [facility] 03/06/20 20 15:12:44 Social History Question Answer Notes LastModified by Organizat ion Details LastModified Time Tobacco Smoking Status Former Smoker Quit 8 Gerri Juarez MA null, [facility] 01/12/2019 16:37:44 Do You Have An Advance Directive? No Information not available 01/15/2019 Is Blood Transfusion Acceptable In An Emergency? Yes Information not available 01/15/2019 What Is Your Level Of Caffeine Consumption? Occasional [email or web address] Information not available 05/29/2020 How Much Tobacco Do You Chew? None Information not available 11/02/2018 What Type Of Diet Are You Following? REGULAR [email or web address] Information not available 05/29/2020 Which Illicit Or Recreational Drugs Have You Used? None Information not available 11/02/2018 Hard Of Hearing Or Deaf In One Or Both Ears? No Information not available 01/17/2020 Legally Blind In One Or Both Eyes? No Information not available 01/17/2020 Live Alone Or With Others? With Others Information not available 01/15/2019 What Was The Date Of Your Most Recent Tobacco Screening? 05/29/2020 Information not available 05/29/2020 How Many Children Do You Have? 2 Information not available 01/15/2019 Performs Monthly Self-breast Exam? Yes Information not available 01/15/2019 What Is Your Relationship Status? Information not available 01/15/2019 Seat Belts Used Routinely Yes Information not available 01/15/2019 Are You Sexually Active? No Information not available 01/15/2019 Are You Passively Exposed To Smoke? No Information not available 01/17/2020 How Much Tobacco Do You Smoke? No Information not available 01/12/2019 General Stress Level Low Information not available 01/15/2019 Do You Use Sunscreen Routinely? Yes Information not available 01/15/2019 On What Date Was Tobacco Cessation Counseling Provided? 01/17/2020 Information not available 01/17/2020 Sex: Unknown Functional Status Question Answer Note LastModified by Organizat ion Details LastModified Time What is your level of alcohol consumption? None Information not available 11/02/2018 Do you or have you ever used smokeless tobacco? Never used smokeless tobacco Information not available 01/12/2019 Are you currently employed? No Information not available 01/15/2019 What is your occupation? disability Information not available 01/15/2019 Do you or have you ever used e-cigarettes or vape? Never used electronic cigarettes Information not available 01/12/2019 What is your exercise level? None Information not available 01/15/2019 Mental Status None recorded. Family History Relationship Description Onset Age of this Age Resolved Age Notes LastModified by Organization Details LastModified Time Mother Diabetes mellitus [email or web address] Not available 05/2018 14:56:38 Mother Heart disease [email or web address] Not available 05/2018 14:57:28 Mother Myocardial infarction [email or web address] Not available 05/2018 14:57:56 Mother Hypercholest erolemia vlavenderma Not available 05/2018 14:58:31 Mother Dementia [email or web address] Not availa ble 11/02/2018 14:59:09 Sister Diabetes mellitus [email or web address] Not available 05/2018 14:56:38 Sister Diabetes mellitus [email or web address] Not available 05/2018 14:56:38 Sister Diabetes mellitus [email or web address] Not available 05/2018 14:56:38 Maternal Aunt Cerebrovascu lar accident vlavenderma Not available 0 11/02/2018 14:57:08 Father Heart disease [email or web address] Not available 05/2018 14:57:18 Father Myocardial infarction [email or web address] Not available 05/2018 14:57:56 Father Hypercholest erolemia vlavenderma Not available 05/2018 14:58:31 Medical History Condition Response Coronary Artery Disease N Other N High Blood Pressure N Atrial Fibrillation Y Kidney or Bladder Problems N Thyroid Problems N GI Problems Y Depression Y COPD N Blood Clots N Skin Problems N Eating Disorder N Anemia N Heart Attack (MA) Y Anxiety Disorder Y Diabetes Y Muscle, Joint, or Bone Problems N Seizures/Epilepsy N Acid Reflux (GERD) N Cancer N Stroke N Asthma N Allergies N ADHD N Substance Abuse N High Cholesterol Y Hepatitis N Liver Disease N Schizophrenia N Headaches N Osteoporosis N Heart Failure N Gynecological History Statement/Question Response If Post Menopausal, Age at Menopause 48 Date of Last Mammogram 02/09/2020 Date of LMP On BCP's at Conception? N Menses Monthly N Date of Last Pap Smear 01/15/2019 Age at Menarche 9 Current Control Method Menopause Age at First Child 19 Obstetrics History GPAL:G 2 P 2 0 0 2 Type Value Multiple Births 0 Full Term 2 Induced 0 Spontaneous 0 Premature 0 Living 2 Ectopics 0 Total 2 Immunizations Vaccine Type Date Status Note Provider Nam e and Address Organization Details Recorded Time Influenza, split virus, quadrivalent, preservative 9 completed Not Available [facility] 05/22/2019 02:38:49 Past Encounters Encounter ID Performer Location Encounter Start Date Encounter Closed Date Diagnosis/Indication Diagnosis SNOMED-CT Code Diagnosis ICD10 Code Diagnosis IMO Codes Diagnosis Note [id number] Suzi Frost MD [facility] [address] [place] [address] 11/02/2018 14:24:02 11/13/2018 08:03:13 History of myocardial infarction 598417028 I25.2 Congestive heart failure 14980470 I50.9 Screening for malignant neoplasm of colon 148915011 Z12.11 Essential hypertension 68978418 I10 Hyperlipidemia 13993697 E78.2 Uncontroll ed type 2 diabetes mellitus 477466748 E11.65 [id number] Suzi Frost MD [facility] [address] [place] [address] 11/20/2018 10:48:06 11/23/2018 10:14:52 Uncontrolled type 2 diabetes mellitus 244282602 E11.65 continue toujeo, novolog, and metformin Hypertensi on in chronic kidney disease stage 4 due to type 2 diabetes mellitus 0216565418 44686 I12.9 continue metoprolol Mixed hype rlipidemia due to type 2 diabetes mellitus 1892478929 03 E78.2 continue atorvastat in [id number] Suzi Frost MD [facility] [address] [place] [address] 01/12/2019 16:28:32 01/21/2019 09:58:18 Chronic constipation 292233332 K59.09 Chronic ki dney disease stage 3 862030397 N18.3 Fatigue - symptom 915374 000 R53.83 easy fatigue, unrefreshi ng sleep, wakes up tired, dry mouth. sister with sleep apnea. Sleep apnea 28203048 G47 .30 [id number] NHUNG FULLER ([employer]IDE) [address] [place] [address] 01/15/2019 09:33:02 01/18/2019 11:54:27 Gynecologic examination 75161657 Z01.419 Venereal d isease screening 500331833 Z11.3 Screening mammography 24 811637 Z12.31 Positive s creening for depression on PHQ-9 (Patient Health Questionnaire 9) 7388085879 91814 Z13.89 Pt has been dealing with depression since her heart attack last March. She had to move in with her son and she says it's hard to watch him take care of her. I discussed counseling but pt is not interested in seeing anyone at this time. Does not want to start any medication s. Denies SI/HI. Candidiasis of skin 4988 3006 B37.2 [id number] Suzi Frost MD [facility] [address] [place] [address] 04/14/2019 11:58:33 04/15/2019 12:18:49 Uncontrolled type 2 diabetes mellitus 361492266 E11.65 continue lantus, novolog, and metformin Administra tion of influenza vaccine 35227248 Z23 Diabetic foot 962228448 E11.59 Sleep apnea 34237045 G47 .30 Patient has history consistent with moderately severe obstructiv e sleep apnea and needs a home sleep study. She has daytime somnolence , loud snoring, witnessed sleep apnea, overwhelmi ng daytime fatigue, and is not safe to drive due to sleepiness . Chronic ki dney disease stage 3 535867905 N18.3 patient advised to avoid dehydratio n, high protein diets, and NSAIDs due to risk for worsening kidney problems. Coronary arteriosclerosis in [place] artery 8956597978 107 I25.10 Patient is taking atorvastat in and has been advised on low fat, limited carbohydra te diet. History of coronary artery bypass grafting 459835153 Z95.1 Patient had 6 coronary artery bypass grafts. Congestive heart failure 80109886 I50.9 patient has fatigue, dyspnea with exertion, decreased exercise tolerance, and pedal edema. Chronic low back pain 27 1170865 M54.5 limited ability to stand or to work walking back and forth for more than a few minutes. Has to sit down due to back pain and dyspnea after minor exertion. Major depr essive disorder 312405776 F32.9 Patient states she does not wish to take depression medication at the present time but will discuss it with me at her next visit. She denies suicidal or homicidal ideation. [id number] Suzi Frost MD [facility] [address] [place] [address] 05/26/2019 11:54:22 06/02/2019 15:40:59 Type 2 diabetes mellitus 46198228 E11.65 Peripheral neuropathy due to type 2 diabetes mellitus 9136582116 107 E11.42 numbness and tingling in hands, weakness in hands, cramping pain in both legs, numbness and tingling in the feet and toes. Sleep apnea 46812505 G47 .30 Patient has history consistent with moderately severe obstructiv e sleep apnea and needs a home sleep study. She has daytime somnolence , loud snoring, witnessed sleep apnea, unrefreshi ng sleep, overwhelmi ng daytime fatigue, and is not safe to drive due to sleepiness . Depression screening 171 943485 Z13.31 positive results felt to be related to systemic illness; if persists when sugars have improve and she is able to get some productive sleep will start SSRIs. patient denies suicidal or homicidal ideation. [id number] Suzi Frost MD [facility] [address] [place] [address] 08/18/2019 09:25:55 08/25/2019 17:13:10 Neuropathy due to diabetes mellitus 764469056 E11.40 Vitamin D deficiency 347 06302 E55.9 Sleep apnea 63052143 G47 .30 CPAP ordered due to positive home sleep study and positive polysomnog alvin. Patient was encouraged to use her CPAP all night every night. Insulin tr eated type 2 diabetes mellitus 976286740 Z79.4 [id number] Suzi Frost MD [facility] [address] [place] [address] 11/03/2019 09:57:29 12/06/2019 07:35:58 Unsteady when walking 52382927 R26.89 has to sit down while cooking or walking distances. Neuropathy due to diabetes mellitus 044038657 E11.40 Obstructiv e sleep apnea syndrome 32944303 G47.33 using CPAP consistent ly at night. [id number] Suzi Frost MD [facility] [address] [place] [address] 01/17/2020 10:17:43 01/24/2020 15:21:13 Constipation 66211339 K59.00 Candidiasis of vagina 72 102461 B37.3 diabetes makes patient more susceptibl e. Congestive heart failure 01613264 I50.9 patient has fatigue, dyspnea with exertion, decreased exercise tolerance, and pedal edema. Peripheral vascular disease 517164858 I73.9 JOSE has been ordered. Diabetic p eripheral neuropathy 535487835 E11.40 will review results from EMGs Disorder o f eye due to type 2 diabetes mellitus 454453026 E11.39 sees a diabetic ophthalmol ogical specialist . History of operative procedure on shoulder 629295810 Z98.890 Had surgery for frozen shoulder in 2017. History of urinary tract infection 6961680116 107 Z87.440 seems to have recovered. Major depr essive disorder 733644658 F32.9 Patient states she does not wish to take depression medication at the present time but will discuss it with me at her next visit. She denies suicidal or homicidal ideation. [id number] NHUNG FULLER ([employer]) [address] [place] [address] 03/06/2020 15:02:44 03/08/2020 09:26:36 Candidiasis of vulva 1538003 B37.3 Pt w/ hx of candidiasi s of vulva. She is out of refills for nystatin and notes that nystatin usually provides relief. She has been using triamcinol one as well; advised against chronic use of steroids and will send refill for only nystatin at this time. Pt to call if symptoms due not improve with nystatin alone. Advised to keep area clean and dry. [id number] NHUNG RICHARD [facility] [address] [place] [address] 05/16/2020 13:45:58 05/17/2020 08:51:15 Acute urinary tract infection 623828545 N39.0 [id number] Suzi Frost MD [facility] [address] [place] [address] 05/29/2020 15:27:10 05/31/2020 14:33:15 Urinary tract infectious disease 60181938 N39.0 Health Concerns Section Related Observation LastModified by Organization Detai ls LastModified Time None Recorded Concern Status LastModified by Organization Details LastModified Time None Recorded Advance Directives Directive N: Payers Insurance Date Sequence Insurance Name Policy Number Policy Roman Covered Member ID Roman Member ID Guarantor Name 10/12/2020 SLIDING FEE SCHEDULE - DISCOUNT Lynn Steven 10/12/2020 1 [place] Lynn Steven [id number] Lynn Steven 10/12/2020 1 [facility] (MEDICARE REPLACEMENT HMO) [id number] Lynn Steven [id number] Lynn Steven 01/15/2019 1 *SELF PAY* Vi isaac Steven 11/20/2018 SLIDING FEE SCHEDULE - DISCOUNT Lynn Harrington Maurizio 10/12/2020 2 [facility] - DOS PRIOR TO 2020 (MEDICAID REPLACEMENT - HMO) Lynn Harrington Maurizio [id number] Lynn Harrington Maurizio 03/06/2020 SLIDING FEE SCHEDULE - DISCOUNT Lynn Harrington Maurizio 10/12/2020 2 [place] [facility] Lynn Harrington Maurizio [id number] Lynn Steven Notes Date Note Type Note Provider Name and Address Organization Details Recorded Time 020 text/ht ml Obstructive Sleep Apnea F/UReported by PatientHPIFor quality, patient reportsloud snoring,gasping for air, andwitnessed apnea(better with use of cpap). For location, patient reportsdryness of mouth. For onset/timing, patient reportschronic. For severity, patient reportsdoes not limit daily activities,no difficulty getting going in the morning, andno awakening in the middle of the night with sore throat. For context, patient reportsnot currently taking medication to help sleepandfamily history of sleep disorder. For alleviating factors, patient reportsrelief with cpap. For aggravating factors, patient reportsworse with excess fatigue,worse during an upper respiratory infection (a cold), andworse when allergies are active. For associated symptoms, patient reportsno morning headache,no awakening at night short of breath,no sweating heavily at night,no excessive sleepiness during the day,no suddenly falling asleep during the day,no napping,no impaired work performace, andno nasal congestion(symptoms have resolved with use of cpap all night every night.). For prior tests, patient reportshome sleep studyandpsg. For prior treatment, patient reportscpap. Peripheral NeuropathyReported by PatientHPIFor location, patient reportsnumbness,tingling,weak limbs, andpoor balance. For quality, patient reportscrampingandprogressively worse over months. For associated symptoms, patient reportsfatigue,weakness,difficulty climbing stairs,difficulty in the dark,difficulty walking on uneven surfaces,stumbles,falls while walking,loss of muscle mass,uncomfortable legs,dizziness, andblurred vision. For hand dominance, patient reportsright. For severity, patient reportsmoderate. For duration, patient reportshas noted for months. For onset/timing, patient reportsgradual onset. For context, patient reportsno change in moodandno change in sleep. Diabetes F/UReported by PatientHPIFor context, patient reportshome blood sugar range highbut reportsseeing eye doctor regularlyandchecking feet regularly(sees nephrology regularly.). For associated symptoms, patient reportssweats,headaches,confusion, increased thirst,increased appetite,increased urination,numbness of feet, andcalluses on feet. For labs, patient reportslast a1c result: 13.1.diabetic neuropathy in feet and lower legs. Unsteady when walking. Has to stop to rest and sit down.ROS as noted in the HPI Suzi Frost MD Attn: Accounting, [address] [facility], [place], [address], [facility] 11/07/2019 19:59:10 020 text/ht ml Urinary FrequencyReported by PatientHPIFor associated symptoms, patient reportsabdominal pain,back pain,chills,dribbling,pain during urination,nausea,vomiting,nocturia ,urine odor,incontinence, andfeelings of urgency. For severity, patient reportsmoderate. For duration, patient reportsevery 30 minutes. For context, patient reportssuccess with short term antibiotics. For alleviating factors, patient reportsantibiotics. For aggravating factors, patient reportsalcohol use,caffeine,cola,intercourse,spic y foods, andtomatoes.Nausea and fever from UTI have resolved with completing course of cipro; blood sugars better since getting over the infection. CHF F/UReported by PatientHPIFor nocturnal symptoms, patient reportsnocturia. For aggravating factors, patient reportsworse with activityandworse with emotional upset. For associated symptoms, patient reportsshortness of breath,dyspnea on exertion,decline in exercise capacity,fatigue,palpitations,diap horesis,nausea, anddysuria. For functional capacity, patient reportsnyha iii (dyspnea climbing < 1 flight stairs). For dietary compliance, patient reportscomplies to and understands diet. For alleviating factors, patient reportsrelieved with restandrelieved with sitting.Gets dyspneic walking with her walker. At times gets very tired with no warning. Has appt later this week with a bridge gang worker. Has been scheduled to have an JOSE to evaluate for peripheral arterial disease and claudication. DiabetesReported by PatientComplications and Co-morbiditiesFor chronic complications, patient reportsdiabetic retinopathy: yesandpast retinal laser treatment or surgery: yes(cataracts). For comorbidities, patient reportscoronary artery disease: yes,cardiovascular risk factors, andclaudications/peripheral vascular disease: yes.Had diabetic eye exam; still has cataracts and some bleeding behind the retina. Peripheral NeuropathyReported by PatientHPIFor location, patient reportsnumbness,tingling, andweak limbs. For quality, patient reportscramping. For onset/timing, patient reportsworsebut reportsgradual onset. For associated symptoms, patient reportsfatigue,weakness,difficulty climbing stairs,difficulty in the dark,difficulty walking on uneven surfaces,loss of muscle mass,drops items,uncomfortable legs,dizziness, andblurred vision. For hand dominance, patient reportsright. For severity, patient reportsmoderate. For duration, patient reportshas noted for months.Patient already had a nerve conduction study with Cristal De La Cruz for numbness and weakness in her hands. ConstipationReported by PatientHPIFor quality, patient reportshard,dry,decreased frequency, anddecreased amount. For context, patient reportsstress,history of chronic idiopathic constipation, andhistory of colonoscopy. For aggravating factors, patient reportseatingandstress. For associated symptoms, patient reportsexcess gas,mucus in stool,weakness,bloating, andcrampingbut reportsno abdominal pain,no fever,no rash,no nausea,no vomiting,no heartburn,no blood in stool, andno black or tarry stools. For severity, patient reportsmoderate. For duration, patient reportspresent 5 or more years. For onset/timing, patient reportsonce a week. For alleviating factors, patient reportshaving bowel movementandfiber supplement(lactulose).Had colonoscopy in March of 2019 which was normal aside from benign polyps. Suzi Frost MD Attn: Accounting, [address] [place], [address], [facility] 01/23/2020 14:16:06 020 text/ht ml ROS as noted in the HPI Pt is a 59yo female presenting via phone visit for medication refills. She states she has been using Nystatin and triamcinolone cream for candidiasis w/ relief. She endorses erythema/irritation/pruritus of the vulva. She denies any vaginal discharge, abnormal bleeding, pelvic pain, lesions. NHUNG FULLER Attn: Accounting, [address] [place], [address], [facility] 03/06/2020 17:11:51 021 text/ht ml DysuriaReported by PatientHPIFor quality, patient reportsburning,pressure, andpain. For severity, patient reportsmoderate. For duration, patient reportsintermittent. For timing, patient reportsgradual. For context, patient reportswipes anterior to posteriorandvoids after intercourse. For associated symptoms, patient reportsno blisters on genitals,no rash on genitals,no hesitancy,no blood in the urine,normal urine stream, andno flank pain.urinalysis and reflex culture from 05-25-2020; patient will be treated with ciprofloxacin.ROS as noted in the HPI Suzi Frost MD Attn: Accounting, [address] [place], [address], [facility] 06/04/2020 19:20:57 OBGyn Episode Ob Episode Information Episode Created Date Number of Fetuses Patient Bloodtype Patient rh Status Prepregnancy Weight lbs Domestic Partner Domestic Partner Phone Father Name Lapeler Status 01/16/20 19 1 CLOSED Fetus Data First Name Last Name Admitted to NICU Weight (g) Sex Living Outcome Pediatric Complications Fetus ID Race Codes Race Delivery Type 4082.32 8 M Full Term [id number] Only Nacho Calculation Initial Nacho Date Initial Exam Date Initial Exam Provider Initial Ultrasound Date Last Menstrual Period Date Ultra Sound Weeks Gestation 0 Eighteen To Twenty Week Nacho Update Ultra Sound Date Fundal Height At Umbil Quickening Date Ultra Sound Latest Weeks Gestation Final Nacho Confirmed By Final Nacho Confirmed Date Final Nacho Date Ultra Sound Latest Days Gestation 0 0 Menstrual History Last Menstrual Date Menses Monthly On Bcp Conception Prior Menses Frequency Hcg Plus Date Menarche Onset Age Delivery Information Delivery Date Delivery Type Labor Anesthesia Weeks Gestation Incision Type Labor Labor Length Hrs Delivered By Post Complications Tubal Sterilization Discharge Date Comments 1 Discharge Information Feeding Method Contraceptive Method Maternal HG B and HCT Levels Ob Episode Information Episode Created Date Number of Fetuses Patient Bloodtype Patient rh Status Prepregnancy Weight lbs Domestic Partner Domestic Partner Phone Father Name Lapeler Status 01/16/20 19 1 CLOSED Fetus Data First Name Last Name Admitted to NICU Weight (g) Sex Living Outcome Pediatric Complications Fetus ID Race Codes Race Delivery Type 3515.33 8 M Full Term [id number] Only Nacho Calculation Initial Nacho Date Initial Exam Date Initial Exam Provider Initial Ultrasound Date Last Menstrual Period Date Ultra Sound Weeks Gestation 0 Eighteen To Twenty Week Nacho Update Ultra Sound Date Fundal Height At Umbil Quickening Date Ultra Sound Latest Weeks Gestation Final Nacho Confirmed By Final Nacho Confirmed Date Final Nacho Date Ultra Sound Latest Days Gestation 0 0 Menstrual History Last Menstrual Date Menses Monthly On Bcp Conception Prior Menses Frequency Hcg Plus Date Menarche Onset Age Delivery Information Delivery Date Delivery Type Labor Anesthesia Weeks Gestation Incision Type Labor Labor Length Hrs Delivered By Post Complications Tubal Sterilization Discharge Date Comments 7 Discharge Information Feeding Method Contraceptive Method Maternal HG B and HCT Levels
--- OUTSIDE RECORDS SUMMARY | 2025-03-29 16:53 | XMS_ITS | Patient Health Record ---
Author Organization [facility] Address [address] [place], [place] [id number] Care Team Providers Care Magician Helper Name Role Phone ISACC ALCOCER Unavailable [phone] Donnell Gabriel Unavailable Unavailable Allergies Allergen (clinical drug ingredient) Drug/Non Drug Allergy documented on EMR Reaction Allergy Type Onset Date Status vancomycin Vancomycin Unknown Drug Allergy Activ e Reason For Referral No Information Plan Of Treatment No Information Insurance Providers Payer Name Payer Address Payer Phone Subscriber Number Group Number Insured Name Patient Relationship to Insured Coverage Start Date Coverage End Date [facility] [address] [address] [place] [address] [id number] DINORAH WHITT Spouse - patient is the spouse of the insured [employer]. [address] [place] [address] [id number] Lynn Whitt Self - patient is the insured Medical (General) History Medical History History ICD Code neuropathy Leg/Feet cramps Respiratory disease Arthritis Sleep apnea Back Trouble Diabetic Heart Disease Lung Disease Surgical History Surgery Date(Month/Year) Cataract extration section Hernia cholecystectomy
== END 2025-03-29 15:05 | disposition home or self-care (01) ==
PROVIDERS: PCP Family Medicine; Visit Provider Internal Medicine Endocrinology, Diabetes & Metabolism
DX: M85.89 Other specified disorders of bone density and structure, multiple sites (principal); Z78.0 Asymptomatic menopausal state; Z13.820 Encounter for screening for osteoporosis
CPT/HCPCS: 77080